=== PATIENT | female | born 1960 | race Caucasian/White ===

== ENCOUNTER 2022-02-02 10:23 | Inpatient (IN) ==
--- NOTE | 2022-02-02 12:02 | XRay Report ---
XR chest 2V PA/lateral CLINICAL HISTORY: dry cough/swelling TECHNIQUE: 2 views of the chest were obtained. Comparison: None available at the time of this dictation. FINDINGS: No lines and tubes are seen. The cardiomediastinal silhouette is normal. There is a large suprahilar mass on the right. No evidence of pleural effusion or pneumothorax. IMPRESSION: Suprahilar mass on the right with or without associated postobstructive atelectasis. In the setting o f a patient with facial swelling for one month, this likely represents a mass resulting in SVC syndro me. If not previously evaluated, a CT is recommended for further evaluation. ACT 112: Negative or not required by law. Electronically signed by: Glenroy Monte M.D. 02/02/2022 12:00 PM
[2022-02-02 12:27] LABS: Basophils # (auto) 0.05 K/uL (0-0.2); Basophils % (auto) 0.6 %; Eosinophils # (auto) 0.06 K/uL (0-0.50); Eosinophils % (auto) 0.7 %; Hematocrit (blood only) 45.3 % (34.1-44.9); Hemoglobin 15.2 g/dl (12.0-16.0); Immature Granulocytes # (auto) 0.02 K/uL (0.00-0.02); Immature Granulocytes % (auto) 0.2 %; Lymphocytes % (auto) 19.8 %; Mean Corpuscular Hemoglobin 30.5 pg (25.0-34.0); Mean Corpuscular Hgb Conc 33.6 g/dL (32.0-36.0); Mean Corpuscular Volume 90.8 fL (80.0-100.0); Mean Platelet Volume 8.7 fL (9.4-12.3); Monocytes # (auto) 0.44 K/uL (0.24-0.82); Monocytes % (auto) 5.1 %; Neutrophils # (auto) 6.32 K/uL (1.4-6.5); Neutrophils % (auto) 73.6 %; Platelet Count 303 K/uL (130-400); RDW Standard Deviation 47.3 fL (36.4-46.3); Red Blood Count 4.99 M/uL (3.93-5.22); White Blood Count 8.59 K/ul (4.8-10.8)
[2022-02-02 12:49] LABS: Albumin Globulin Ratio 1.4 (0.9-2); Albumin Level 4.3 gm/dl (3.4-5.0); BUN Creatinine Ratio 15.5 (10-20); Bilirubin,Total 0.5 mg/dl (0.2-1.0); Calcium 9.5 mg/dl (8.5-10.1); Creatinine Clr Calc Pharmacy 83.7 ml/min; Est GFR (African American) 107.3 ml/min; Est GFR (Non-African American) 92.6 ml/min; Potassium 4.4 mmol/L (3.5-5.1); Total Protein 7.3 gm/dl (6.0-8.3)
[2022-02-02] MEDS ORDERED: OPTIRAY 350 100ml IV ONE (14:54)
--- NOTE | 2022-02-02 15:19 | CT Scan Report ---
CT chest diagnostic w con CLINICAL HISTORY: R lung mass, SVC sx TECHNIQUE: Multidetector row helical CT of the chest was performed with intravenous contrast. Coronal and sagittal reformations were obtained. Automated dose lowering techniques and/or adjustment accord ing to patient size were utilized for this exam. CT DOSE: 625.07 mGy.cm Comparison: Comparison is made to chest radiograph 02/02/2022 FINDINGS: Lungs and pleura: Emphysema is seen. There is a 9 cm lobulated, heterogeneous appearing right hilar m ass encasing the superior vena cava. There is postobstructive atelectasis in the upper lobe. There is a 3 mm nodule in the right lower lobe (series 4 image 207). Heart and pericardium: Heart size is normal. No pericardial effusion. Vessels: There is severe narrowing of the right upper lobe pulmonary artery as well as the superior v tiffanie cava. Collateral formation is seen. No evidence of pulmonary embolus within the limits of a nonde dicated exam. Mediastinum and tasha: No discrete mediastinal lymph nodes are seen. Chest wall and lower neck: Subcentimeter axillary lymph nodes noted. Multiple enlarged right subclavi an lymph nodes measure up to 13 mm in diameter. Abdomen: There is thickening of the left adrenal gland. A splenule is incidentally seen. Bones: Degenerative changes in the thoracic spine. IMPRESSION: Large lobulated right hilar mass with heterogeneity suggestive of necrosis. There is severe narrowing of the superior vena cava compatible symptoms of SVC syndrome. The right upper lobe pulmonary artery is also effaced. A few prominent lymph nodes are seen most prominently in the right subclavian stati on. ACT 112: Negative or not required by law. Electronically signed by: Glenroy Monte M.D. 02/02/2022 3:17 PM
[2022-02-02] MEDS ORDERED: SODIUM CHLORIDE 0.9% 500 ML IV ONE (15:31)
[2022-02-02] MEDS ORDERED: SODIUM CHLORIDE 0.9% 1000ML 1,000 ML IV SCH (15:45)
--- NOTE | 2022-02-02 16:32 | Emergency Department Note ---
Impression & Plan SVC syndrome, Hilar mass, Sinus tachycardia ED Provider Note CHIEF COMPLAINT: Increased heart rate, facial swelling, breast swelling HISTORY OF PRESENT ILLNESS: This 61-year-old female patient presents to the emergency department with complaints of increased heart rate today, face and breast swelling over the course of the last month. 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 She and her coworkers became concerned when it was in the 120s. She states she does smoke cigarettes daily. She has for many years. She has had a dry cough but did not think much of it. Seen at the urgent care clinic this week and placed on doxycycline for sinusitis due to the facial swelling. She states nothing has changed significantly. She denies any chest pain or difficulty with exertion. REVIEW OF SYSTEMS: A review of systems was performed with positives and pertinent negatives listed in the history of present illness. 10 systems were reviewed and are otherwise negative. ALLERGIES: see below MEDICATIONS: see below PMH: see below SOCIAL HISTORY: see below DDx: Premature contractions, electrolyte abnormality, cardiac dysrhythmia, thyroid dysfunction, pulmonary embolism, thoracic mass, infection, gastroin testinal, as well as other pathologies. PHYSICAL EXAM: Vital signs reviewed. General: Generally well-appearing 61-year-old female, in no significant distress. Ambulatory in the waiting room. HEENT: No scleral icterus, PERRLA, neck supple. Mild swelling to the face with erythema noted. Cardiovascular: Tachycardic but regular, no extra sounds. Chest: Large, pendulous breasts. No obvious abnormality. Pulmonary: Clear to auscultation bilaterally, normal work of breathing. Abdomen: Soft, nontender, nondistended, positive bowel sounds. Musculoskeletal: Atraumatic, no peripheral edema. Neurologic: Patient awake alert and oriented x 3, speech is clear Skin: Warm, dry, no rash EMERGENCY DEPARTMENT COURSE/MDM: This patient was evaluated and appeared to be in no significant distress. Patient was in the waiting room at the time my evaluation secondary to excessive volumes. Nursing protocol orders had been performed and a chest mass was identified on chest x-ray. Follow-up chest CT was ordered and reveals a right hilar mass abutting the superior vena cava. Please see findings below. Patient was informed of the findings. She does have a history of tobacco use over many years. I did discuss the case with pulmonary medicine, Dr. Shaw. He stated he would evaluate the patient and arrange for biopsy of possible. 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 IV NSS was administered. Patient was made aware of this plan and agreed. Case was discussed with the hospitalist service who will evaluate the patient for admission and further management. MONITORING: An order for cardiac monitoring was placed and the patient is noted to be in a sinus tachycardia at 120 beats per minute. RADIOLOGY: See below EKG: Sinus tachycardia 111 bpm. Left atrial enlargement. Low voltage QRS. Possible previous septal infarct. Nonspecific ST and T wave abnormality. 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 Required: No Beliefs That Will Affect Care: Spiritual Current Living Situation: Spouse Current Living Situation Comment: lives in house with steps Feels Safe at Home: Yes Safety Concerns: Feels Safe At This Time Assistive Devices: None Allergies Allergies Allergy/AdvReac Type Severity Reaction Status Date / Time naproxen Allergy Intermediate ITCHY HIVES Verified 02/02/22 15:53 Home Meds Home Medications Medication Instructions Recorded Confirmed acetaminophen 500 mg tablet 1,000 mg PO QAM 02/02/22 02/02/22 (Tylenol Extra Strength) doxycycline hyclate 100 mg capsule 100 mg PO BID 02/02/22 02/02/22 Results & Data (ED) Vital Signs Vital Signs - 24 hr 02/02/22 17:24 Pulse Rate [Apical] 95 H Pulse Rhythm [Apical] Regular Respiratory Rate 18 Respiratory Effort / Characteristics Non-Labored Respiratory Depth Normal Respiratory Pattern Regular Blood Pressure [Left Arm] 131/105 H Blood Pressure Mean [Left Arm] 113 Blood Pressure Position [Left Arm] Lying Pulse Oximetry 95 Oxygen Delivery Method Room Air Home Medications Current Medication List: was personally reviewed by me Laboratory Data Attestation: I reviewed the patient's lab results. Result diagrams: 02/03/22 05:39 02/03/22 05:39 Lab Results 02/02/22 02/02/22 02/02/22 Range/Units 12:10 12:10 12:10 WBC 8.59 (4.8-10.8) K/ul RBC 4.99 (3.93-5.22) M/uL Hgb 15.2 (12.0-16.0) g/dl Hct 45.3 H (34.1-44.9) % MCV 90.8 (80.0-100.0) fL MCH 30.5 (25.0-34.0) pg MCHC 33.6 (32.0-36.0) g/dL RDW Std Deviation 47.3 H (36.4-46.3) fL RDW Coeff of Sohail 14.0 (11.5-14.5) % Plt Count 303 (130-400) K/uL MPV 8.7 L (9.4-12.3) fL Immature Gran % (Auto) 0.2 % Neut % (Auto) 73.6 % Lymph % (Auto) 19.8 % Rich % (Auto) 5.1 % Eos % (Auto) 0.7 % Baso % (Auto) 0.6 % Neut # (Auto) 6.32 (1.4-6.5) K/uL Lymph # (Auto) 1.70 (1.2-3.4) K/uL Rich # (Auto) 0.44 (0.24-0.82) K/uL Eos # (Auto) 0.06 (0-0.50) K/uL Baso # (Auto) 0.05 (0-0.2) K/uL Immature Gran # (Auto) 0.02 (0.00-0.02) K/uL PT Cancelled INR Cancelled APTT Cancelled PTT Ratio Cancelled Sodium 138 (136-145) mmol/L Potassium 4.4 (3.5-5.1) mmol/L Chloride 105 (98-107) mmol/L Carbon Dioxide 25 (21-32) mmol/L Anion Gap 8 (3-11) BUN 11 (6-23) mg/dl Creatinine 0.71 (0.6-1.2) mg/dl Est Cr Clr Drug Dosing 83.7 ml/min Est GFR ( Amer) 107.3 ml/min Est GFR (Non-Af Amer) 92.6 ml/min BUN/Creatinine Ratio 15.5 (10-20) Glucose 80 (70-99(Fasting)) mg/dl Calcium 9.5 (8.5-10.1) mg/dl Total Bilirubin 0.5 (0.2-1.0) mg/dl AST 18 (13-39) U/L ALT 7 (7-52) U/L Alkaline Phosphatase 79 (34-104) U/L B-Natriuretic Peptide (0-100) pg/ml Total Protein 7.3 (6.0-8.3) gm/dl Albumin 4.3 (3.4-5.0) gm/dl Globulin 3.0 (2.5-4.0) gm/dl Albumin/Globulin Ratio 1.4 (0.9-2) 02/02/ Range/Units 12:10 WBC (4.8-10.8) K/ul RBC (3.93-5.22) M/uL Hgb (12.0-16.0) g/dl Hct (34.1-44.9) % MCV (80.0-100.0) fL MCH (25.0-34.0) pg MCHC (32.0-36.0) g/dL RDW Std Deviation (36.4-46.3) fL RDW Coeff of Sohail (11.5-14.5) % Plt Count (130-400) K/uL MPV (9.4-12.3) fL Immature Gran % (Auto) % Neut % (Auto) % Lymph % (Auto) % Rich % (Auto) % Eos % (Auto) % Baso % (Auto) % Neut # (Auto) (1.4-6.5) K/uL Lymph # (Auto) (1.2-3.4) K/uL Rich # (Auto) (0.24-0.82) K/uL Eos # (Auto) (0-0.50) K/uL Baso # (Auto) (0-0.2) K/uL Immature Gran # (Auto) (0.00-0.02) K/uL PT INR APTT PTT Ratio Sodium (136-145) mmol/L Potassium (3.5-5.1) mmol/L Chloride (98-107) mmol/L Carbon Dioxide (21-32) mmol/L Anion Gap (3-11) BUN (6-23) mg/dl Creatinine (0.6-1.2) mg/dl Est Cr Clr Drug Dosing ml/min Est GFR ( Amer) ml/min Est GFR (Non-Af Amer) ml/min BUN/Creatinine Ratio (10-20) Glucose (70-99(Fasting)) mg/dl Calcium (8.5-10.1) mg/dl Total Bilirubin (0.2-1.0) mg/dl AST (13-39) U/L ALT (7-52) U/L Alkaline Phosphatase (34-104) U/L B-Natriuretic Peptide 24 (0-100) pg/ml Total Protein (6.0-8.3) gm/dl Albumin (3.4-5.0) gm/dl Globulin (2.5-4.0) gm/dl Albumin/Globulin Ratio (0.9-2) Administered Medications Dexamethasone 4 mg/ Syringe 1 mls @ 1 mls/min IV Q6H [facility] Stop: 03/04/22 20:59 Last Admin: 02/03/22 09:19 Dose: 1 mls/min Documented By: Admin: 02/03/22 03:23 Dose: 1 mls/min Documented By: Admin: 02/02/22 21:44 Dose: 1 mls/min Documented By: MARIAJOSE Miscellaneous (Remove Nicoderm Patch) 1 each N/A DAILY@0859 [facility] Stop: 03/05/22 08:58 Last Admin: 02/03/22 09:34 Dose: Not Given Documented By: YARITZA Nicotine (Nicotine 21 Mg/24 Hr Tdsy) 21 mg TD QAM [facility] Stop: 03/04/22 20:56 Last Admin: 02/03/22 09:33 Dose: Not Given Documented By: Admin: 02/03/22 03:23 Dose: Not Given Documented By: MARIAJOSE Discontinued Medications Dexamethasone (Dexamethasone Sod Inj 4 Mg/Ml Vial) Confirm Administered Dose 4 mg .ROUTE .STK-MED ONE Stop: 02/03/22 09:03 Last Admin: 02/03/22 10:46 Dose: Not Given Documented By: FRANCISCA Gadobutrol (Gadobutrol 7.5ml Vial) 7.5 ml IV ONCE ONE Stop: 02/03/22 00:37 Last Admin: 02/03/22 00:37 Dose: 7.5 ml Documented By: TODD Sodium Chloride (Nss) 500 mls @ 999 mls/hr IV .Q31M ONE Stop: 02/02/22 16:01 Last Infusion: 02/02/22 19:56 Dose: 0 mls/hr Documented By: Admin: 02/02/22 18:04 Dose: 999 mls/hr Documented By: Sodium Chloride (Nss 1000ml) 1,000 mls @ 125 mls/hr IV .Q8H [facility] Stop: 03/04/22 15:44 Last Admin: 02/02/22 18:01 Dose: Not Given Documented By: Ioversol (Optiray 350 100ml) 87 ml IV ONCE ONE Stop: 02/02/22 14:55 Last Admin: 02/02/22 14:59 Dose: 87 ml Documented By: PRUDENCIO Ioversol (Optiray 350 100ml) 83 ml IV ONCE ONE Stop: 02/03/22 07:59 Last Admin: 02/03/22 07:59 Dose: 83 ml Documented By: PRUDENCIO Imaging Data Radiologist's Impression: Chest X-Ray 02/02/22 10:48 XR chest 2V PA/lateral CLINICAL HISTORY: dry cough/swelling TECHNIQUE: 2 views of the chest were obtained. Comparison: None available at the time of this dictation. FINDINGS: No lines and tubes are seen. The cardiomediastinal silhouette is normal. There is a large suprahilar mass on the right. No evidence of pleural effusion or pneumothorax. IMPRESSION: Suprahilar mass on the right with or without associated postobstructive atelectasis. In the setting of a patient with facial swelling for one month, this likely represents a mass resulting in SVC syndrome. If not previously evaluated, a CT is recommended for further evaluation. ACT 112: Negative or not required by law. Electronically signed by: Glenroy Monte M.D. 02/02/2022 12:[address] 02/02/22 14:42 CT chest diagnostic w con CLINICAL HISTORY: R lung mass, SVC sx TECHNIQUE: Multidetector row helical CT of the chest was performed with intravenous contrast. Coronal and sagittal reformations were obtained. Automated dose lowering techniques and/or adjustment according to patient size were utilized for this exam. CT DOSE: 625.07 mGy.cm Comparison: Comparison is made to chest radiograph 02/02/2022 FINDINGS: Lungs and pleura: Emphysema is seen. There is a 9 cm lobulated, heterogeneous appearing right hilar mass encasing the superior vena cava. There is postobstructive atelectasis in the upper lobe. There is a 3 mm nodule in the right lower lobe (series 4 image 207). Heart and pericardium: Heart size is normal. No pericardial effusion. Vessels: There is severe narrowing of the right upper lobe pulmonary artery as well as the superior vena cava. Collateral formation is seen. No evidence of pulmonary embolus within the limits of a nondedicated exam. Mediastinum and tasha: No discrete mediastinal lymph nodes are seen. Chest wall and lower neck: Subcentimeter axillary lymph nodes noted. Multiple enlarged right subclavian lymph nodes measure up to 13 mm in diameter. Abdomen: There is thickening of the left adrenal gland. A splenule is in cidentally seen. Bones: Degenerative changes in the thoracic spine. IMPRESSION: Large lobulated right hilar mass with heterogeneity suggestive of necrosis. There is severe narrowing of the superior vena cava compatible symptoms of SVC s yndrome. The right upper lobe pulmonary artery is also effaced. A few prominent lymph nodes are seen most prominently in the right subclavian station. ACT 112: Negative or not required by law. Electronically signed by: Glenroy Monte M.D. 02/02/2022 3:17 PM Blood Pressure Blood Pressure Findings: Elevated blood pressure Blood Pressure Disposition: elevated BP felt to be situational Discharge Plan Visit Data Chief Complaint: Illness Stated Complaint: FACIAL SWELLING, HIGH HEART RATE ED Provider: Suzanne Costello Discharge Problem: SVC syndrome, Hilar mass, Sinus tachycardia Discharge Instructions Interventions: ED Discharge Assessment Last Done: 02/02/22 20:56
--- NOTE | 2022-02-02 18:13 | History & Physical Report ---
Date of Service February 02, 2022 Assessment & Plan (1) Exertional dyspnea: (2) Facial edema: (3) Hilar mass: (4) SVC syndrome: Plan: Patient is 61-year-old female with PMH tobacco use, dyslipidemia presented to ER with complaint of facial swelling, exertional SOB and non-productive cough x 1 month. No noted night sweats, weight loss In ER afebrile, initially tachycardic 120s, R: 18, BP 146/97, 96% on room air. No leukocytosis CXR: Suprahilar mass on the right with or without associated postobstructive atelectasis. In the setting of a patient with facial swelling for one month, this likely represents a mass resulting in SVC syndrome. If not previously evaluated, a CT is recommended for further evaluation. CT CHEST with IV contrast: Large lobulated right hilar mass with heterogeneity suggestive of necrosis. There is severe narrowing of the superior vena cava compatible symptoms of SVC syndrome. The right upper lobe pulmonary artery is also effaced. A few prominent lymph nodes are seen most prominently in the right subclavian station. Spoke with on-call energy control officer, Dr. Shaw. Recommend CT scan abdomen and pelvis to rule out mass/metastasis. Plans on possible bronchoscopy for biopsy CT abdomen pelvis ordered for tomorrow a.m. as patient received IV contrast today Spoke with on-call radiation oncology, Dr Vaz. Recommend starting Decadron 4mg QID Consult medical oncology Will get BMP Q6H per energy control officer with starting Decadron to monitor for TLS CBC, BMP in am (5) Abnormal resting ECG findings: Plan: EKG: Sinus tachycardia, rate 111. T wave inversion in septal and anterior leads. No prior EKG noted in [facility]. Outpatient EKG report from 06/27/2014 in [facility] system: normal sinus rhythm, normal EKG Repeat vitals in ER with HR in 90's Will add troponin and trend troponin Echo (6) Tobacco use: Plan: Nicotine patch Smoking cessation encouraged DVT Prophylaxis SCDs in case of procedure Full Code as per discussion with pt Does not follows with PCP for routine care Pt was seen and care coordinated with Dr Tomas. See addendum History of Present Illness Chief Complaint: Facial swelling Primary Care Provider: NO PCP Patient is 61-year-old female with PMH tobacco use, dyslipidemia presented to ER with complaint of facial swelling x 1 month. Patient reports for the past month has noticed facial swelling. Also c/o exertional SOB and non-productive cough. Has been having orthopnea for months, sleeps in recliner chair. Reports has been having right chest/axillary pressure for greater than 1 month. Feels some anterior chest pressure. Feels breasts are also more swollen today. She noticed neck seemed swollen also. Has not noticed swollen or tender lymph nodes to axilla. Today she took her pulse and reports had rate of 120 so she decided she should come to ER for evaluation. Denies sensation of skipped beats. 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 Patient reports was seen at urgent care 01/27/2022 for facial swelling and was placed on doxycycline for possible sinus infection without relief of facial swelling. Has been having some nausea but has been eating and drinking normally and without vomiting. Is unsure if nausea began after taking doxycycline. Has not seen PCP for years. Denies any noted weight loss, night sweats, hemoptysis dysphagia, dysphagia, fever/chills, V/D/C, MEDINA, dizziness, syncope, vision changes, sore throat, otalgia, rhinorrhea, abdominal pain, paresthesias, weakness, extremity weakness, extremity edema, rashes, urinary symptoms. Allergies Allergy/AdvReac Type Severity Reaction Status Date / Time naproxen Allergy Intermediate ITCHY HIVES Verified 02/02/22 15:53 Home Medications Medication Instructions Recorded Confirmed Type acetaminophen 500 mg tablet 1,000 mg PO QAM 02/02/22 02/02/22 History (Tylenol Extra Strength) doxycycline hyclate 100 mg capsule 100 mg PO BID 02/02/22 02/02/22 History Past Med/Surg History Medical History Dyslipidemia Tobacco use Surgical History (Updated 02/02/22 @ 16:41 by Ashley Toledo PA-C) H/O tubal ligation History of breast lump/mass excision History of colonoscopy Family History (Updated 02/02/22 @ 18:07 by Ashley Toledo PA-C) Father Lung cancer Social History (Updated 02/02/22 @ 18:07 by Ashley Toledo PA-C) Smoking Status: Current every day smoker Tobacco Type: Cigarettes Cigarettes Per Day: 1 pack/day x 45 years; Hx Alcohol Use: Yes (1 beer daily) Hx Substance Use: Yes Non-Prescribed Medications: Marijuana Last Used Substance Other:: Smokes marijuana daily Preferred Language: Ukrainian Feels Safe at Home: Yes Review of Systems Review of Systems: All systems reviewed & are unremarkable except as noted in HPI & below Physical Exam Physical Exam: General: no acute distress, WDWN Head: normocephalic, atraumatic Eyes: PERRL, EOM's intact, conjunctiva non-injected, anicteric ENT: normal inspection external ears, nose, mucous membranes moist Face: +diffuse edema Neck: supple, trachea midline, +distended neck and chest veins Lungs: clear, no respiratory distress, no wheezing/rhonchi/rales CV: RRR, rate 92, no murmur, no pretibial edema Abd: normal BS, soft, non-tender Ext: no cyanosis, no erythema, no calf tenderness Neuro: A&O x 3, no focal deficits noted, normal affect Skin: warm, dry Results & Data Results & Data ([facility]) Vital Signs (Past 12 Hours) Vital Signs Temp Pulse Resp BP Pulse Ox O2 Del Method 02/02/22 10:41 36.6 C 121 H 18 146/97 H 96 Room Air Laboratory Results Short CBC 02/02/22 Range/Units 12:10 WBC 8.59 (4.8-10.8) K/ul Hgb 15.2 (12.0-16.0) g/dl Hct 45.3 H (34.1-44.9) % Plt Count 303 (130-400) K/uL BMP 02/02/22 12:10 Sodium 138 Potassium 4.4 Chloride 105 Carbon Dioxide 25 BUN 11 Creatinine 0.71 Glucose 80 Calcium 9.5 Liver Function 02/02/22 Range/Units 12:10 Total Bilirubin 0.5 (0.2-1.0) mg/dl AST 18 (13-39) U/L ALT 7 (7-52) U/L Alkaline Phosphatase 79 (34-104) U/L Albumin 4.3 (3.4-5.0) gm/dl Diagnostic Findings Chest X-Ray 02/02/22 10:48 XR chest 2V PA/lateral CLINICAL HISTORY: dry cough/swelling TECHNIQUE: 2 views of the chest were obtained. Comparison: None available at the time of this dictation. FINDINGS: No lines and tubes are seen. The cardiomediastinal silhouette is normal. There is a large suprahilar mass on the right. No evidence of pleural effusion or pneumothorax. IMPRESSION: Suprahilar mass on the right with or without associated postobstructive atelectasis. In the setting of a patient with facial swelling for one month, this likely represents a mass resulting in SVC syndrome. If not previously evaluated, a CT is recommended for further evaluation. ACT 112: Negative or not required by law. Electronically signed by: Glenroy Monte M.D. 02/02/2022 12:[address] 02/02/22 14:42 CT chest diagnostic w con CLINICAL HISTORY: R lung mass, SVC sx TECHNIQUE: Multidetector row helical CT of the chest was performed with intravenous contrast. Coronal and sagittal reformations were obtained. Automated dose lowering techniques and/or adjustment according to patient size were utilized for this exam. CT DOSE: 625.07 mGy.cm Comparison: Comparison is made to chest radiograph 02/02/2022 FINDINGS: Lungs and pleura: Emphysema is seen. There is a 9 cm lobulated, heterogeneous appearing right hilar mass encasing the superior vena cava. There is postobstructive atelectasis in the upper lobe. There is a 3 mm nodule in the right lower lobe (series 4 image 207). Heart and pericardium: Heart size is normal. No pericardial effusion. Vessels: There is severe narrowing of the right upper lobe pulmonary artery as well as the superior vena cava. Collateral formation is seen. No evidence of pulmonary embolus within the limits of a nondedicated exam. Mediastinum and tasha: No discrete mediastinal lymph nodes are seen. Chest wall and lower neck: Subcentimeter axillary lymph nodes noted. Multiple enlarged right subclavian lymph nodes measure up to 13 mm in diameter. Abdomen: There is thickening of the left adrenal gland. A splenule is incidentally seen. Bones: Degenerative changes in the thoracic spine. IMPRESSION: Large lobulated right hilar mass with heterogeneity suggestive of necrosis. There is severe narrowing of the superior vena cava compatible symptoms of SVC syndrome. The right upper lobe pulmonary artery is also effaced. A few prominent lymph nodes are seen most prominently in the right subclavian station. ACT 112: Negative or not required by law. Electronically signed by: Glenroy Monte M.D. 02/02/2022 3:17 PM ECG Rate (beats per minute): 111 Rhythm: sinus tachycardia Findings: + T-wave inversion (Septal, anterior) Supervising Physician Co-Signing Physician Notes Patient is a 61-year-old female with tobacco use disorder, dyslipidemia and no other significant past medical history presents with history of facial/neck/upper chest swelling which has been gradually worsening for the past 1 month duration. She also reports exertional shortness of breath and no nproductive cough. She attributes her cough secondary to having having COVID few months ago. She admits to smoking 1 pack/day. Denies any dysphagia, odynophagia, shortness of breath at rest, weight loss, loss of appetite, dizziness, syncopal episode. Reports family history of her father having lung cancer. Currently denies any chest pain. Please review HPI for complete details of presentation. I personally reviewed blood work, imaging studies and EKG. On exam patient is moderately built and nourished, no apparent distress, normocephalic atraumatic, EOMI, normal breath sounds, clear to auscultation,+ facial/neck and upper chest swelling, S1-S2, no murmur, trace pedal edema noted, abdomen soft, nontender, normal bowel sounds, alert, awake, oriented, grossly no focal deficits. Patient is admitted for management of SVC syndrome secondary to hilar mass. Cannot rule out malignancy. Appreciate pulmonology and radiation oncology input. Start on IV Decadron. Monitor BMP for any tumor lysis. Heme oncology consulted as well. Monitor for any airway compromise. Abnormal EKG. Agree with trending troponins and checking resting echo and will repeat EKG tomorrow. Blood pressure slightly elevated likely situational. 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 N.p.o. after midnight for possible bronchoscopy. I personally reviewed the record. Patient is interviewed and examined at bedside. Patient's care is coordinated with Ashley Toledo PA-C. Please refer to the documentation above for details of patient's presentation and for discussion of other issues.
--- NOTE | 2022-02-02 18:24 | Electrocardiogram Report ---
Test Reason : Blood Pressure : / mmHG Vent. Rate : 111 BPM Atrial Rate : 111 BPM P-R Int : 160 ms QRS Dur : 062 ms QT Int : 304 ms P-R-T Axes : 068 073 076 degrees QTc Int : 413 ms Sinus tachycardia Possible Left atrial enlargement Low voltage QRS Abnormal ECG No previous ECGs available Confirmed by Darian Martin ([id number]) on 02/02/2022 6:23:31 PM Referred By: Confirmed By:Prashant Martin
--- NOTE | 2022-02-02 18:41 | Pulmonary Consultation ---
Date of Consultation February 02, 2022 Assessment & Plan (1) Lung mass: Plan Likely primary lung ca. perhaps small celll. NPO after midnight. will try ebus tomorrow if scheduling allows. if not, ebus can be done outpatient probably next week. needs ct abdomen with contrast and mri brain for staging. History of Present Illness Reason for Consultation: lung mass History of Present Illness presented with palpitations and tachycardia. 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 checked pulse which was in 90s but hr elevated. heavy smoker since teenage years. dad with hx of lung ca. patient noted swelling of her face for a month and given doxy with no inprovement. ct chest today with signs of svc syndrome and 9 cm centrally located lung mass with airway compression. Allergies Allergy/AdvReac Type Severity Reaction Status Date / Time naproxen Allergy Intermediate ITCHY HIVES Verified 02/02/22 15:53 Home Medications Medication Instructions Recorded Confirmed Type acetaminophen 500 mg tablet 1,000 mg PO QAM 02/02/22 02/02/22 History (Tylenol Extra Strength) doxycycline hyclate 100 mg capsule 100 mg PO BID 02/02/22 02/02/22 History Patient History Medical History Dyslipidemia Tobacco use Surgical History (Updated 02/02/22 @ 16:41 by Ashley Toledo PA-C) H/O tubal ligation History of breast lump/mass excision History of colonoscopy Family History (Updated 02/02/22 @ 18:07 by Ashley Toledo PA-C) Father Lung cancer Social History (Updated 02/02/22 @ 18:07 by Ashley Toledo PA-C) Smoking Status: Current every day smoker Tobacco Type: Cigarettes Cigarettes Per Day: 1 pack/day x 45 years; Hx Alcohol Use: Yes (1 beer daily) Hx Substance Use: Yes Non-Prescribed Medications: Marijuana Last Used Substance Other:: Smokes marijuana daily Preferred Language: Iranian Feels Safe at Home: Yes Review of Systems Review of Systems: All systems reviewed & are unremarkable except as noted in HPI & below Physical Exam Constitutional: WD/WN, vitals as above Eyes: PERRL, conjunctivae normal, anicteric sclerae Neck: dilated IJ and EJ. plethoric face Respiratory: normal respiratory effort and + cough; no paradoxical thoraco- abdominal movemnt Gastrointestinal (Abdomen): normal bowel sounds, soft, nontender, no hepatosplenomegaly Psychiatric: A+Ox3, euthymic affect Results & Data Results & Data ([facility]) Vital Signs (Past 12 Hours) Vital Signs Temp Pulse Pulse Resp BP BP Pulse Ox 02/02/22 17:24 95 H 18 131/105 H 95 02/02/22 10:41 36.6 C 121 H 18 146/97 H 96 O2 Del Method 02/02/22 17:24 Room Air 02/02/22 10:41 Room Air PG Care Time/CCT Total # of Minutes Spent Total Time Spent with Patient: Total time spent is greater than 50% in coordination of care (as documented) at patient's floor/unit and/or counseling patient: Coding Level of Care Code 63665 Inpt Consult Level 4 Diagnoses Lung mass R91.8
[2022-02-02 19:11] LABS: INR 1.1 (0.9-1.1); Partial Thromboplastin Ratio 0.9; Partial Thromboplastin Time 25.1 Seconds (21.0-31.0); Prothrombin Time 11.5 Seconds (9.0-12.0)
[2022-02-02] MEDS ORDERED: POLYETHYLENE (MIRALAX) 17 GM PACK PO PRN (20:57)
[2022-02-02] MEDS ORDERED: ONDANSETRON INJ 2 MG/ML 2 ML VIAL IV PRN (20:57)
[2022-02-02] MEDS ORDERED: ALBUTEROL 0.083% NEBU SOLN 3 ML VIAL NEB PRN (20:57)
[2022-02-02] MEDS: dexAMETHasone 4 MG in SYRINGE 0 ML IV SCH (21:44)
[2022-02-03] MEDS ORDERED: GADOBUTROL 7.5ML VIAL IV ONE (00:36)
[2022-02-03] MEDS ORDERED: FLUARIX QUADRIVALENT 0.5 ML SYR IM ONE (00:56)
[2022-02-03 00:57] LABS: BUN Creatinine Ratio 16.4 (10-20); Calcium 8.9 mg/dl (8.5-10.1); Creatinine Clr Calc Pharmacy 81.4 ml/min; Est GFR (African American) 103.8 ml/min; Est GFR (Non-African American) 89.5 ml/min; Potassium 4.2 mmol/L (3.5-5.1)
[2022-02-03 00:59] LABS: Troponin I High Sensitivity 6.2 pg/ml (0-14)
[2022-02-03] MEDS: NICOTINE 21 MG/24 HR TDSY TD SCH ×2 (03:23→09:33)
[2022-02-03] MEDS: dexAMETHasone 4 MG in SYRINGE 0 ML IV SCH ×4 (03:23→20:11)
[2022-02-03 06:11] LABS: Hematocrit (blood only) 42.2 % (34.1-44.9); Hemoglobin 14.1 g/dl (12.0-16.0); Mean Corpuscular Hemoglobin 30.6 pg (25.0-34.0); Mean Corpuscular Hgb Conc 33.4 g/dL (32.0-36.0); Mean Corpuscular Volume 91.5 fL (80.0-100.0); Mean Platelet Volume 8.9 fL (9.4-12.3); Platelet Count 281 K/uL (130-400); RDW Coefficient of Variation 13.9 % (11.5-14.5); RDW Standard Deviation 47.1 fL (36.4-46.3); Red Blood Count 4.61 M/uL (3.93-5.22); White Blood Count 4.85 K/ul (4.8-10.8)
[2022-02-03 06:43] LABS: Troponin I High Sensitivity 3.9 pg/ml (0-14)
[2022-02-03 06:45] LABS: BUN Creatinine Ratio 16.7 (10-20); Calcium 9.1 mg/dl (8.5-10.1); Creatinine Clr Calc Pharmacy 89.1 ml/min; Est GFR (African American) 111.3 ml/min; Potassium 4.6 mmol/L (3.5-5.1)
--- NOTE | 2022-02-03 07:44 | Oncology Consultation ---
Date of Consultation February 03, 2022 Assessment & Plan (1) Small cell lung cancer: (2) Left renal mass: Plan Pleasant female who presented with superior vena cava syndrome with imaging revealing right hilar mass as well as left renal mass. Bronchoscopy/EBUS with biopsy was performed today and based on my discussion with Dr. Pink of pathology was consistent with small cell lung cancer ([facility] pending). Given significant symptoms from SVC syndrome, will need to start chemotherapy for small cell lung cancer urgently. Had an extensive discussion with patient today. Explained to her that based on preliminary pathology review, she appears to have small cell lung cancer. Im aging studies indicate that she has limited stage disease for which I would recommend treatment with concurrent chemoradiation utilizing carboplatin AUC 5 day 1, etoposide day 1-3 given IV every 3 weeks for total of 4 cycles of treatment. Discussed potential side effects of treatment with patient including but not limited to nausea, vomiting, diarrhea, constipation, increased risk of infection, anemia, thrombocytopenia, renal insufficiency, infusion reaction. Following our discussion, she indicated that she would like to go ahead with treatment and informed consent was obtained. -Chemotherapy orders and consent placed in her chart. IV team informed -Radiation treatments can be started between cycle 1-2 of chemotherapy treatment -Will require daily labs including CBC and CMP. Also need to be monitored for tumor lysis syndrome with labs including uric acid, phosphorus and potassium -Although she also has left renal mass concerning for renal cell carcinoma, given aggressiveness of small cell lung cancer will hold off on workup/treatment for now but will need urology assessment in the future depending on how she responds to treatment Thank you for this consult. Oncology will continue following while in the hospital. Please call if you have any further questions History of Present Illness Reason for Consultation: Lung mass Attending Physician: Vignesh Tomas MD History of Present Illness Ms. Pathak is a pleasant 61-year-old female who presented to the ER [facility] with palpitations, facial, neck and breast swelling. She indicates that she initially presented to urgent care about a week ago and doxycycline was prescribed with no improvement in symptoms. CT chest obtained while in the ER revealed 9 cm right hilar mass encasing the superior vena cava, subcentimeter axillary lymph node with multiple enlarged subclavian lymph nodes measuring up to 1.3 cm and thickening of the left adrenal gland. CT abdomen and pelvis revealed indeterminate lesion in the left kidney inferior pole. Brain MRI obtained earlier today revealed no evidence of brain metastasis. Renal ultrasound also obtained earlier today revealed 1.8 x 1.8 x 1.5 cm hypoechoic lesion within the lower pole of the left kidney likely representing solid renal mass/renal cell carcinoma. She underwent bronchoscopy with EBUS performed by Dr. Shaw earlier today. Based on my discussion with Dr. Pink of pathology appearance is highly suggestive of small cell lung cancer with a immunohistochemistry pending. She endorses more than [id number] history of cigarette smoking. Endorses dyspnea on exertion, right-sided chest discomfort, facial, neck and breast swelling. Allergies Allergy/AdvReac Type Severity Reaction Status Date / Time naproxen Allergy Intermediate ITCHY HIVES Verified 02/02/22 15:53 Home Medications Medication Instructions Recorded Confirmed Type acetaminophen 500 mg tablet 1,000 mg PO QAM 02/02/22 02/02/22 History (Tylenol Extra Strength) doxycycline hyclate 100 mg capsule 100 mg PO BID 02/02/22 02/02/22 History Patient History Medical History Dyslipidemia Tobacco use Surgical History H/O tubal ligation History of breast lump/mass excision History of colonoscopy Family History Father Lung cancer Social History Smoking Status: Current every day smoker Tobacco Type: Cigarettes Cigarettes Per Day: 20; Hx Alcohol Use: Yes Alcohol type: beer Hx Substance Use: No Preferred Language: Malagasy 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 Internship Required: No Beliefs That Will Affect Care: Spiritual Current Living Situation: Spouse Current Living Situation Comment: lives in house with steps Feels Safe at Home: Yes Assistive Devices: None Review of Systems Review of Systems: All systems reviewed & are unremarkable except as noted in HPI & below Physical Exam Constitutional: WD/WN, vitals as above Eyes: PERRL, conjunctivae normal, anicteric sclerae ENMT: external ear and nose normal, oropharynx normal Neck: Distention of neck veins and neck swelling Respiratory: normal respiratory effort, lungs clear to auscultation Cardiovascular: Rate/Rhythm: + tachycardic Gastrointestinal (Abdomen): normal bowel sounds, soft, nontender, no hepatosplenomegaly Results & Data ([facility]) Vital Signs (Past 12 Hours) Vital Signs Temp Pulse Resp BP Pulse Ox O2 Del Method 02/03/22 07:41 84 19 152/92 H 95 Room Air 02/03/22 03:23 36.8 C 88 12 127/78 95 Room Air 02/03/22 00:50 36.8 C 89 19 156/98 H 96 Room Air 02/02/22 20:04 92 H 18 150/87 H 95 Room Air
[2022-02-03] MEDS ORDERED: OPTIRAY 350 100ml IV ONE (07:58)
--- NOTE | 2022-02-03 08:31 | CT Scan Report ---
CT abd pelvis IV con only CLINICAL HISTORY: R/O mass/mets TECHNIQUE: Helical axial images of the abdomen and pelvis were obtained and displayed. Automated dose lowering techniques and/or adjustment according to patient size were utilized for this exam. This e xam was performed with intravenous contrast. CT DOSE: 640.83 mGy.cm COMPARISON: None available at the time of this dictation. FINDINGS: Lower chest: No acute abnormality. Liver: Unremarkable. No focal lesions are seen. Gallbladder and biliary tree: No calcified gallstones. Normal caliber wall. No intra- or extrahepatic biliary ductal dilation. Pancreas: Unremarkable, no focal lesions. Spleen: Unremarkable. Adrenals: Unremarkable. Kidneys and ureters: There is a complex appearing hypoenhancing lesion in the left kidney inferior po le measuring 13 mm in diameter. Bladder: Limited evaluation due to underdistention. Reproductive organs: Unremarkable. Bowel: Unremarkable appearance of the bowel. The appendix is normal. Lymph nodes Retroperitoneal: Unremarkable. Pelvic: Unremarkable. Mesenteric: Unremarkable. Peritoneum: Normal. Vessels: Atherosclerotic calcifications are seen. Abdominal wall: Unremarkable. Bones: Degenerative changes in the visualized spine. IMPRESSION: No acute abnormality and in particular no evidence of metastatic disease below the diaphragm. ACT 112: Negative or not required by law. Electronically signed by: Glenroy Monte M.D. 02/03/2022 8:30 AM
--- NOTE | 2022-02-03 08:44 | Radiation OncologyConsultation ---
Date of Consultation February 03, 2022 Assessment & Plan (1) SVC syndrome: Assessment: Patient is a 61-year-old female with [id number]-year history of smoking. She recently noted some swelling of the face neck and breast and increasing heart rate. He presented to the emergency department last evening and chest x-ray showed a 9 cm right suprahilar mass involving the hilum and mediastinum with compression of the right upper lobe pulmonary artery and superior vena cava. Staging work-up is undergoing but no obvious evidence of metastatic disease at this time. Patient has been seen by medical oncology and pulmonary with plans to obtain tissue diagnosis. Treatment Options: 1. Chemotherapy. 2. Radiation. 3. Chemoradiation. Recommendations: 2 best determine treatment options tissue diagnosis is mandatory. The patient has been seen by Dr. Shaw who is planning to perform a bronchoscopy to obtain tissue diagnosis. Once the patient has had complete staging work-up and tissue diagnosis treatment options will be discussed. Plan: 1. Bronchoscopy with tissue diagnosis is being planned. 2. MRI of the brain and CT of the abdomen have been performed and are being read. 3. Pending tissue diagnosis discussion of appropriate treatment options. 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 Her symptoms however are mild and improved with the initiation of steroid therapy. I do not believe that any emergent treatment is necessary at this time. The patient is to be scheduled for bronchoscopy to obtain tissue for diagnosis. If this is a small cell cancer patient may best be served by initiation of systemic chemotherapy initially followed by chemoradiation. If this is a non-small cell lung cancer the patient may be best served by initiation of chemoradiation. Other tissue diagnosis would be dealt with appropriately. I will discuss this with Dr. Barr and Dr. Shaw with appropriate treatment recommendations and plans once tissue diagnosis has been obtained. History of Present Illness Reason for Consultation: Right lung mass with probable SVC syndrome. Attending Physician: Vignesh Tomas MD History of Present Illness Ms. Pathak is a 61-year-old female with a long smoking history starting at age 16 from 1/2 to 1 pack a day. The patient presented to the emergency department with complaints of based and breast swelling which is increased over the past month. She also noted some heart palpitation. She has had a dry cough and some dyspnea upon exertion. 02/02/2022. Patient undergoes CT scan of the chest with contrast. This showed a 9 cm lobulated heterogeneous appearing right hilar mass encasing the superior vena cava. There is postobstructive atelectasis in the upper lobe and a 3 mm nodule in the right lower lobe. There is evidence of emphysema. There is severe narrowing of the right upper lobe pulmonary artery as well as the superior vena cava with collateral formation seen. There is no discrete mediastinal lymph nodes appreciated. There is a subcentimeter axillary lymph node noted with multiple enlarged right subclavian lymph nodes measuring up to 1.3 cm. There is thickening of the left adrenal gland and degenerative changes of the thoracic spine with no evidence of metastatic bony disease. 02/03/2022. Patient undergoes MRI of the brain. Final report is pending but on review there is no obvious evidence of metastatic disease. Patient also undergoes CT of the abdomen which is also being read but upon review shows no obvious evidence of metastatic disease. 02/03/2022. Patient was seen by Dr. Barr and by Dr. Shaw. Dr. Shaw is planning to proceed with a bronchoscopy for tissue diagnosis. The patient has been started on Decadron and has noted improvement in the swelling of the face and neck and breast as well as in the breathing. The patient was able to lie flat comfortably for the scans without shortness of breath. 02/03/2022. Patient is seen in referral by radiation oncology. Allergies Allergy/AdvReac Type Severity Reaction Status Date / Time naproxen Allergy Intermediate ITCHY HIVES Verified 02/02/22 15:53 Home Medications Medication Instructions Recorded Confirmed Type acetaminophen 500 mg tablet 1,000 mg PO QAM 02/02/22 02/02/22 History (Tylenol Extra Strength) doxycycline hyclate 100 mg capsule 100 mg PO BID 02/02/22 02/02/22 History Patient History Medical History Dyslipidemia Tobacco use Surgical History H/O tubal ligation History of breast lump/mass excision History of colonoscopy Family History Father Lung cancer Social History Smoking Status: Current every day smoker Tobacco Type: Cigarettes Cigarettes Per Day: 20; Hx Alcohol Use: Yes Alcohol type: beer Hx Substance Use: Yes Non-Prescribed Medications: Marijuana Last Used Substance: Just Prior to Arrival Last Used Substance Other:: Smokes marijuana daily Preferred Language: Italian Imaging Assistant Required: No Beliefs That Will Affect Care: None Current Living Situation: Spouse Current Living Situation Comment: lives in house with steps Feels Safe at Home: Yes Safety Concerns: Feels Safe At This Time Assistive Devices: None Physical Exam Constitutional: WD/WN, vitals as above Eyes: PERRL, conjunctivae normal, anicteric sclerae ENMT: external ear and nose normal, oropharynx normal Neck: There is mild swelling of the face and neck with no definite cervical or supraclavicular adenopathy appreciated on examination. Respiratory: normal respiratory effort, lungs clear to auscultation Cardiovascular: RRR, no murmur, no edema Chest (Breasts): normal inspection/palpation of breasts Gastrointestinal (Abdomen): normal bowel sounds, soft, nontender, no hepatosplenomegaly Musculoskeletal: no cyanosis or clubbing, extremities motor strength 5/5 Skin: no rashes, warm and dry Neurologic: PERRL, EOMI, accommodation nl, no face palsy, no dysarthria Cranial nerves are intact. Psychiatric: A+Ox3, euthymic affect Lymphatic: There is no palpable cervical, supraclavicular, axillary or inguinal adenopathy appreciated. Results (Rad Onc) Laboratory Results: were reviewed and no pertinent findings Pathology Results: pending Imaging Studies: were reviewed and pertinent findings noted in HPI Time Spent Attending This documentation has been prepared in full by Dr. Vaz. I have personally reviewed the services described and have reviewed the documentation to ensure its accuracy. I spent 25 minutes with direct face to face interaction with the patient which included obtaining clinical information, recommending a plan of action and answering questions. I spent 30 minutes reviewing the patient's chart, her scans with radiology and discussion with referring physicians. KYLEE
[2022-02-03] MEDS ORDERED: DEXAMETHASONE SOD INJ 4 MG/ML VIAL ONE (09:02)
--- NOTE | 2022-02-03 09:54 | Magnetic Resonance Report ---
MR brain wo/w con CLINICAL HISTORY: R/O mets TECHNIQUE: Multiplanar and multisequence MR images of the brain were obtained prior to and following administration of gadolinium contrast. Comparison: None available at the time of this dictation. FINDINGS: No abnormal restricted diffusion is identified. The white matter is unremarkable. The ventricular sys tem is normal in appearance. No mass or abnormal enhancement is seen. There is no mass effect or midl ine shift. There is no evidence of acute intraparenchymal hemorrhage. No extra axial fluid collection s are seen. The corpus callosum, pituitary gland, and cerebellar tonsils appear grossly unremarkable. Flow voids of the major intracranial arterial vessels are identified. The imaged portions of the para nasal sinuses, mastoid air cells, and orbits are unremarkable. IMPRESSION: No acute abnormalities. ACT 112: Negative or not required by law. Electronically signed by: Glenroy Monte M.D. 02/03/2022 9:52 AM
[2022-02-03] MEDS ORDERED: NALOXONE HCL 0.4 MG/1 ML VIAL/CARP ONE (11:20)
[2022-02-03] MEDS ORDERED: FLUMAZENIL 0.1 MG/1 ML 10 ML VIAL IV ONE (11:20)
[2022-02-03] MEDS ORDERED: fentaNYL citrate 100 MCG/2 ML VIAL ONE ×2 (11:21→11:47)
[2022-02-03] MEDS ORDERED: MIDAZOLAM HCL 1 MG/ML 2ML VIAL ONE ×2 (11:21)
[2022-02-03] MEDS ORDERED: MIDAZOLAM HCL 5 MG/ML 1 ML VIAL ONE (11:25)
--- NOTE | 2022-02-03 12:06 | History & Physical Bridge Note ---
Date of Service February 03, 2022 History & Physical Bridge Note I have examined the patient, reviewed the History & Physical and in the interval since the performance of the History & Physical I have noted the following changes of clinical significance: no changes noted
--- NOTE | 2022-02-03 12:10 | Pre Anesthesia Assessment ---
Date of Service February 03, 2022 Pre Sedation Assessment Vital Signs Temp Pulse Resp BP Pulse Ox O2 Del Method 02/03/22 07:41 84 19 152/92 H 95 Room Air 02/03/22 03:23 36.8 C 88 12 127/78 95 Room Air 02/03/22 00:50 36.8 C 89 19 156/98 H 96 Room Air 02/02/22 20:04 92 H 18 150/87 H 95 Room Air 02/02/22 18:46 86 18 140/87 94 Room Air 02/02/22 17:24 95 H 18 131/105 H 95 Room Air Cardiovascular RRR, no murmur, no edema Respiratory normal respiratory effort, lungs clear to auscultation Pre-Sedation Airway Assessment Smoking Status: Current every day smoker Hx Sleep Apnea: No Short, Thick Neck: No Thyromental Distance: > or= 3.5 Finger Breadths Oral Cavity: + WNL Mallampati Class: I ASA: ASA3 NPO Status Date of Last Intake of Fluids: 02/02/22 Time of Last Intake of Fluids: 21:00 Date of Last Intake of Solid Food: 02/02/22 Time of Last Intake of Solid Foods: 21:00 Notes The planned sedation has been discussed with the patient. Informed Consent was obtained. I have identified the patient, determined the appropriateness of sedation and have assessed the patient immediately prior to the procedure. All medicine(s) and interventions are by my order.
--- NOTE | 2022-02-03 12:59 | Post Anesthesia Assessment ---
Date of Service February 03, 2022 Post Sedation Assessment Vital Signs Temp Pulse Pulse Resp BP Pulse Ox O2 Del Method 02/03/22 12:45 89 18 141/87 H 95 Nasal Cannula 02/03/22 12:37 104 H 18 133/83 96 Nasal Cannula 02/03/22 12:27 96 H 18 175/110 H 98 High Flow Nasal Cannula 02/03/22 12:17 85 18 133/93 97 High Flow Nasal Cannula 02/03/22 12:32 94 H 18 134/93 97 High Flow Nasal Cannula 02/03/22 12:23 105 H 18 185/125 H 98 High Flow Nasal Cannula 02/03/22 12:12 80 18 143/103 H 98 High Flow Nasal Cannula 02/03/22 07:41 84 19 152/92 H 95 Room Air 02/03/22 03:23 36.8 C 88 12 127/78 95 Room Air 02/03/22 00:50 36.8 C 89 19 156/98 H 96 Room Air 02/02/22 20:04 92 H 18 150/87 H 95 Room Air 02/02/22 18:46 86 18 140/87 94 Room Air 02/02/22 17:24 95 H 18 131/105 H 95 Room Air O2 Flow Rate 02/03/22 12:45 4 02/03/22 12:37 4 02/03/22 12:27 02/03/22 12:17 02/03/22 12:32 02/03/22 12:23 02/03/22 12:12 02/03/22 07:41 02/03/22 03:23 02/03/22 00:50 02/02/22 20:04 02/02/22 18:46 02/02/22 17:24 Recovery Score Activity: Moves 4 extremities Respiration: Deep Breath/Cough Circulation: +/-20% PreAnes Value Consciousness: Fully Awake Oxygen Saturation: > 92% On Room Air Post Anesthesia Score: 10 Discharge Sedation Level of Care: Fast Track Phase II Post Sedation Plan On clinical assessment, the patient appears to have tolerated the sedation without complications. Patient is recovering as anticipated. Patient will continue to be monitored by nursing and may be discharged when sedation discharge criteria are met per below protocol. Upon Completions of procedure up to 15 minutes continue every 5 minute vital signs and the P.A.R. score; then discharge to a Phase I or Fast Track to Phase II per the following guidelines: * Discharge Patient to appropriate Phase II area if PAR is 8 or greater or return to pre- procedure baseline. The post - procedure orders will be as directed. * If PAR score is less than 8 or not return to pre-procedure baseline then patient will follow Phase I monitoring till PAR is reached for Phase II. The Phase I may be done in procedure room or may call to secure a Phase I area. * If naloxone or flumazenil are used for reversal, hold in Phase I for continued monitoring from when last reversal dose was given for a minimum of 60 minutes or longer pending the nurse and/or physician discretion of patient condition before discharge to Phase II. Please call the Sedation Physician to re-evaluate and complete post-note for discharge to Phase II area. Do NOT discharge from procedure sedation or Phase 1 until post- sedation evaluation note is complete by procedure /sedation MD Sedation Discharge Instructions to be given to the patient at discharge to home.
--- NOTE | 2022-02-03 13:01 | Pulmonology Progress Note ---
Date of Service February 03, 2022 Assessment & Plan (1) Lung mass: Plan CT abdomen and MRI brain negative. I performed an EBUS today the subcarinal lymph node. Biopsy was positive for small cell lung cancer onsite. Oncology consulted. Patient aware. No further recommendations from pulmonary at this point. We will sign off. Thank you for the consult. Admission and Anticipated Discharge Date Admission Date: February 02, 2022 Subjective Patient with cough and shortness of breath today. Denies chest pain. Otherwise stable Review of Systems Review of Systems: All systems reviewed & are unremarkable except as noted in HPI & below Physical Exam Constitutional: WD/WN, vitals as above Eyes: PERRL, conjunctivae normal, anicteric sclerae Neck: dilated IJ and EJ. plethoric face Respiratory: normal respiratory effort and + cough; no paradoxical thoraco- abdominal movemnt Gastrointestinal (Abdomen): normal bowel sounds, soft, nontender, no hepatosplenomegaly Psychiatric: A+Ox3, euthymic affect Results & Data Results & Data ([facility]) Vital Signs (Past 12 Hours) Vital Signs Temp Pulse Pulse Resp BP Pulse Ox O2 Del Method 02/03/22 12:45 89 18 141/87 H 95 Nasal Cannula 02/03/22 12:37 104 H 18 133/83 96 Nasal Cannula 02/03/22 12:27 96 H 18 175/110 H 98 High Flow Nasal Cannula 02/03/22 12:17 85 18 133/93 97 High Flow Nasal Cannula 02/03/22 12:32 94 H 18 134/93 97 High Flow Nasal Cannula 02/03/22 12:23 105 H 18 185/125 H 98 High Flow Nasal Cannula 02/03/22 12:12 80 18 143/103 H 98 High Flow Nasal Cannula 02/03/22 07:41 84 19 152/92 H 95 Room Air 02/03/22 03:23 36.8 C 88 12 127/78 95 Room Air O2 Flow Rate 02/03/22 12:45 4 02/03/22 12:37 4 02/03/22 12:27 02/03/22 12:17 02/03/22 12:32 02/03/22 12:23 02/03/22 12:12 02/03/22 07:41 02/03/22 03:23 PG Care Time/CCT Total # of Minutes Spent Total Time Spent with Patient: Total time spent is greater than 50% in coordination of care (as documented) at patient's floor/unit and/or counseling patient: Coding Level of Care Code 75679 Subseq Hosp Care Lvl 2 Diagnoses Lung mass R91.8
--- NOTE | 2022-02-03 13:06 | Procedure Note ---
Supervising Physician Co-Signing Physician Notes PREOPERATIVE DIAGNOSIS: Large central lung mass POSTOPERATIVE DIAGNOSIS: Same with PROCEDURE PERFORMED: EBUS FNA COMPLICATIONS: None. INDICATION: Rule out malignant PROCEDURE: After obtaining an informed consent, the patient was brought to the Bronchoscopy Suite. The patient had appropriate oxygen, blood pressure, heart rate, and respiratory rate monitoring applied and monitored continuously throughout the procedure. Supplemental oxygen via nasal cannula as per nursing records was applied to the nasopharynx with adequate saturations achieved. Topical anesthesia with nebulized 1% lidocaine was achieved. Subsequent to this, the patient was premedicated with 4 mg of midazolam and 125 mcg of fentanyl. Sedation start time 1217. Sedation stop time 1237. Procedure start time 1218. Procedure stop time 1237. The oropharynx and larynx were well visualized and appeared normal There was normal vocal cord motion without masses or lesions. Additional topical anesthesia with 1% lidocaine was applied to the trachea and omar. The trachea appeared normal. There was narrowing of the left mainstem bronchus. Bilateral tracheobronchial tree inspection was performed. There was significant narrowing of the superior segment of the left lower lobe, but I was able to pass the scop e. There was significant narrowing of the right upper lobe and I was unable to pass the scope through the right upper lobe. Otherwise the bilateral tracheal tree appeared normal with scant secretions bilaterally. The mucus was cleared with suction. EBUS was performed and immediately upon viewing the subcarinal region, there was a 4 cm mass appreciated. Discriminate lymph nodes were difficult to discern. I performed several passes of the subcarinal region and was able to obtain adequate tissue. Onsite pathology was concerning for small cell lung cancer. Adequate hemostasis was achieved. The scope was completely withdrawn and the patient tolerated the procedure well. Recommendations: Follow final pathology results. Radiation oncology and medical oncology consulted. Patient has right upper lobe external compression with no airflow. There is also external compression of the left mainstem bronchus which appears to be ventilating okay at this time. [facility] [place] Procedure Codes (Charges) Pulmonary/Thoracic Procedure 1: Pulmonary and Thoracic: 13557 Bronchoscopy, w/EBUS 1 or 2 mediastinal Procedure 2: Pulmonary and Thoracic: 40797 Bronchoscopy, clear airways Sedation/Anesthesia Procedure 1: Sedation/Anesthesia: 11857 Mod Sedation by the same physician;Init15 Min Child Age 5 & Up (25 minutes of sedation)
--- NOTE | 2022-02-03 13:30 | XRay Report ---
XR chest 1V portable HISTORY: 61 years-old Female Post Bronchoscopy status post bronchoscopy COMPARISON: Chest CT 02/02/2022 TECHNIQUE: AP view of the chest FINDINGS: Large mediastinal mass redemonstrated. The cardiac silhouette is within normal limits. Emphysema with right perihilar densities are again noted. No postprocedural pneumothorax, large pleural effusion or overt pulmonary edema. Degenerative changes of the shoulders and spine. IMPRESSION: Large right hilar mass redemonstrated. No postbiopsy pneumothorax identified. ACT 112: Negative or not required by law. The above report was generated using voice recognition software. It may contain grammatical, syntax o r spelling errors. Electronically signed by: Stephan Phillips M.D. 02/03/2022 1:29 PM
--- NOTE | 2022-02-03 14:00 | Hospitalist Progress Note ---
Date of Service February 03, 2022 Assessment & Plan (1) Exertional dyspnea: (2) Facial edema: (3) Hilar mass: (4) SVC syndrome: Plan: Patient is 61-year-old female with PMH tobacco use, dyslipidemia presented to ER with complaint of facial swelling, exertional SOB and non-productive cough x 1 month. No noted night sweats, weight loss In ER afebrile, initially tachycardic 120s, R: 18, BP 146/97, 96% on room air. No leukocytosis SVC Syndrome Lung mass: Presumed small cell lung cancer S/P EBUS Pathology pending --CT Chest: Large lobulated right hilar mass with heterogeneity suggestive of necrosis. There is severe narrowing of the superior vena cava compatible symptoms of SVC syndrome. The right upper lobe pulmonary artery is also effaced. A few prominent lymph nodes are seen most prominently in the right subclavian station. --CT ABD:No acute abnormality and in particular no evidence of metastatic disease below the diaphragm. There is an indeterminate lesion in the left kidney inferior pole. If not previously evaluated, nonemergent renal ultrasound can be performed to exclude solid mass. --MRI Brain:No acute abnormalities. --Renal USD: pending -- Appreciate pulmonology, heme oncology, radiation oncology input --Continue Decadron for now Taper steroids as able Left renal lesion Renal ultrasound pending Elevated blood pressure Likely situational Monitor BP (5) Abnormal resting ECG findings: Plan: Troponin negative Echo pending Denies chest pain (6) Tobacco use: Plan: Nicotine patch Smoking cessation encouraged DVT Px SCDs for now Code Status Full Code Admission and Anticipated Discharge Date Admission Date: February 02, 2022 Subjective Patient is seen and examined at bedside No expectorant cough unchanged Had EBUS earlier today Subjectively feels facial swelling is slightly better Denies any chest pain, shortness of breath, dizziness, nausea, abdominal pain No other complaints Review of Systems Review of Systems: All systems reviewed & are unremarkable except as noted in Subjective Physical Exam Physical Exam: Physical Exam: Vitals signs as noted above General Appearance:Moderately built and nourished, no apparent distress Head: normocephalic, Atraumatic, + facial/lip edema Eyes: normal inspection, EOMI Neck: supple, Trachea midline Respiratory/Chest: Normal breath sounds, CTA, No accessory muscle use Cardiovascular: S1, S2, No murmur Abdomen/GI:Soft, Non tender, Bowel sounds present Extremities/Musculoskeletal:normal inspection, Trace pedal edema Neurologic/Psych:AAOX3, grossly no focal neurological deficits Skin: normal color, warm Results & Data Results & Data ([facility]) Vital Signs (Past 12 Hours) Vital Signs Temp Pulse Pulse Resp BP Pulse Ox O2 Del Method 02/03/22 13:07 84 18 128/85 96 Nasal Cannula 02/03/22 13:00 94 H 18 127/94 96 Nasal Cannula 02/03/22 12:45 89 18 141/87 H 95 Nasal Cannula 02/03/22 12:37 104 H 18 133/83 96 Nasal Cannula 02/03/22 12:27 96 H 18 175/110 H 98 High Flow Nasal Cannula 02/03/22 12:17 85 18 133/93 97 High Flow Nasal Cannula 02/03/22 12:32 94 H 18 134/93 97 High Flow Nasal Cannula 02/03/22 12:23 105 H 18 185/125 H 98 High Flow Nasal Cannula 02/03/22 12:12 80 18 143/103 H 98 High Flow Nasal Cannula 02/03/22 07:41 84 19 152/92 H 95 Room Air 02/03/22 03:23 36.8 C 88 12 127/78 95 Room Air O2 Flow Rate 02/03/22 13:07 4 02/03/22 13:00 4 02/03/22 12:45 4 02/03/22 12:37 4 02/03/22 12:27 02/03/22 12:17 02/03/22 12:32 02/03/22 12:23 02/03/22 12:12 02/03/22 07:41 02/03/22 03:23 Laboratory Results Short CBC 02/03/22 Range/Units 05:39 WBC 4.85 (4.8-10.8) K/ul Hgb 14.1 (12.0-16.0) g/dl Hct 42.2 (34.1-44.9) % Plt Count 281 (130-400) K/uL BMP 02/03/22 02/03/22 00:04 05:39 Sodium 138 138 Potassium 4.2 4.6 Chloride 107 107 Carbon Dioxide 23 24 BUN 12 11 Creatinine 0.73 0.66 Glucose 109 H 115 H Calcium 8.9 9.1
--- NOTE | 2022-02-03 14:22 | Ultrasound Report ---
RENAL ULTRASOUND HISTORY: left kidney lesion COMPARISON: Abdomen and pelvis CT 02/03/2022. FINDINGS: Right kidney: 10.6 cm. No hydronephrosis. Normal corticomedullary differentiation and cortical thickn ess. Left kidney: 11.7 cm. There is a 1.8 x 1.8 x 1.5 cm hypoechoic lesion within the lower pole of the le ft kidney. This corresponds to the CT abnormality and likely represents a solid renal mass/renal cell carcinoma. No hydronephrosis. Normal corticomedullary differentiation and cortical thickness. Bladder: No bladder wall thickening. IMPRESSION: 1. There is a 1.8 x 1.8 x 1.5 cm hypoechoic lesion within the lower pole of the left kidney. This cor responds to the CT abnormality and likely represents a solid renal mass/renal cell carcinoma. 2. Normal right kidney. ACT 112: Negative or not required by law. Electronically signed by: Min Tello M.D. 02/03/2022 2:20 PM
[2022-02-03 16:00] LABS: BUN Creatinine Ratio 16.9 (10-20); Calcium 9.2 mg/dl (8.5-10.1); Creatinine Clr Calc Pharmacy 70.9 ml/min; Est GFR (African American) 88.8 ml/min; Est GFR (Non-African American) 76.6 ml/min; Potassium 4.3 mmol/L (3.5-5.1)
[2022-02-03] MEDS ORDERED: hydrALAZINE 10 MG TAB PO PRN (17:35)
--- NOTE | 2022-02-03 17:44 | Electrocardiogram Report ---
Test Reason : Blood Pressure : / mmHG Vent. Rate : 082 BPM Atrial Rate : 082 BPM P-R Int : 132 ms QRS Dur : 070 ms QT Int : 360 ms P-R-T Axes : 064 059 069 degrees QTc Int : 420 ms Normal sinus rhythm Possible Left atrial enlargement Low voltage QRS Nonspecific ST abnormality Incomplete right bundle branch block Abnormal ECG When compared with ECG of 02-FEB-2022 12:18, No significant change was found Confirmed by Darian Martin ([id number]) on 02/03/2022 5:44:27 PM Referred By: REFERRED SELF Confirmed By:Prashant Martin
[2022-02-03 21:46] LABS: BUN Creatinine Ratio 24.4 (10-20); Calcium 9.2 mg/dl (8.5-10.1); Creatinine Clr Calc Pharmacy 65.4 ml/min; Est GFR (African American) 80.5 ml/min; Est GFR (Non-African American) 69.5 ml/min; Potassium 4.3 mmol/L (3.5-5.1)
[2022-02-04] MEDS: dexAMETHasone 4 MG in SYRINGE 0 ML IV SCH ×4 (03:27→20:47)
[2022-02-04] MEDS: ACETAMINOPHEN 325 MG TAB PO PRN (04:47)
[2022-02-04 08:00] LABS: BUN Creatinine Ratio 25.6 (10-20); Calcium 8.9 mg/dl (8.5-10.1); Creatinine Clr Calc Pharmacy 75.3 ml/min; Est GFR (African American) 95.8 ml/min; Est GFR (Non-African American) 82.6 ml/min; Phosphorus 3.5 mg/dl (2.5-4.9); Potassium 4.4 mmol/L (3.5-5.1); Uric Acid 4.9 mg/dl (2.6-7.2)
[2022-02-04] MEDS: NICOTINE 21 MG/24 HR TDSY TD SCH (08:22)
[2022-02-04] MEDS: LORazepam 0.5 MG TAB PO PRN (12:46)
[2022-02-04] MEDS ORDERED: FOSAPREPITANT DIMEGLUMINE 150 MG in SODIUM CHLORIDE 0.9% 145 ML IV SCH (13:30)
[2022-02-04] MEDS ORDERED: PALONOSETRON IV SCH (14:00)
[2022-02-04] MEDS ORDERED: DEXAMETHASONE IV SCH (14:00)
[2022-02-04] MEDS ORDERED: DEXTROSE 5% IV SCH (14:00)
[2022-02-04] MEDS ORDERED: CARBOPLATIN IV SCH (14:30)
[2022-02-04] MEDS ORDERED: SODIUM CHLORIDE 0.9% IV SCH (14:30)
[2022-02-04] MEDS: ETOPOSIDE IV SCH (15:55)
[2022-02-04] MEDS: SODIUM CHLORIDE 0.9% IV SCH (15:55)
--- NOTE | 2022-02-04 16:35 | Hospitalist Progress Note ---
Date of Service February 04, 2022 Assessment & Plan (1) Exertional dyspnea: (2) Facial edema: (3) Hilar mass: (4) SVC syndrome: Plan: Patient is 61-year-old female with PMH tobacco use, dyslipidemia presented to ER with complaint of facial swelling, exertional SOB and non-productive cough x 1 month. No noted night sweats, weight loss In ER afebrile, initially tachycardic 120s, R: 18, BP 146/97, 96% on room air. 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 There is severe narrowing of the superior vena cava compatible symptoms of SVC syndrome. The right upper lobe pulmonary artery is also effaced. A few prominent lymph nodes are seen most prominently in the right subclavian station. --CT ABD:No acute abnormality and in particular no evidence of metastatic disease below the diaphragm. There is an indeterminate lesion in the left kidney inferior pole. If not previously evaluated, nonemergent renal ultrasound can be performed to exclude solid mass. --MRI Brain:No acute abnormalities. --Renal USD: pending -- Appreciate pulmonology, heme oncology, radiation oncology input --Continue Decadron for now Taper down steroids as able Plan for first dose of chemotherapy today Left renal lesion Suspected renal cell carcinoma --Renal ultrasound:There is a 1.8 x 1.8 x 1.5 cm hypoechoic lesion within the lower pole of the left kidney. This corresponds to the CT abnormality and likely represents a solid renal mass/renal cell carcinoma. Normal right kidney. Appreciate Hemo/oncology Input Will need to be evaluated by Urology eventually Elevated blood pressure Likely situational due to steroids Monitor BP (5) Abnormal resting ECG findings: Plan: Troponin negative Echo: Normal left ventricular wall thickness. No regional wall motion normality. Left ventricle systolic motion is normal. EF 60 to 65%. Grade 1 diastolic dysfunction. No significant valvular pathology Denies chest pain (6) Tobacco use: Plan: Nicotine patch Smoking cessation encouraged DVT Px SCDs for now Lovenox SQ Code Status Full Code Admission and Anticipated Discharge Date Admission Date: February 02, 2022 Subjective Patient is seen and examined at bedside Feels facial swelling is better today Has chronic dry cough Plan for chemotherapy today Denies any chest pain, shortness of breath, dizziness, nausea, abdominal pain Review of Systems Review of Systems: All systems reviewed & are unremarkable except as noted in Subjective Physical Exam Physical Exam: Physical Exam: Vitals signs as noted above General Appearance:Moderately built and nourished, no apparent distress Head: normocephalic, Atraumatic, + facial/lip edema Eyes: normal inspection, EOMI Neck: supple, Trachea midline Respiratory/Chest: Normal breath sounds, CTA, No accessory muscle use Cardiovascular: S1, S2, No murmur Abdomen/GI:Soft, Non tender, Bowel sounds present Extremities/Musculoskeletal:normal inspection, Trace pedal edema Neurologic/Psych:AAOX3, grossly no focal neurological deficits Skin: normal color, warm Results & Data Results & Data ([facility]) Vital Signs (Past 12 Hours) Vital Signs Temp Pulse Pulse Resp BP Pulse Ox O2 Del Method 02/04/22 15:58 36.5 C 77 20 151/90 H 94 Room Air 02/04/22 12:32 36.4 C L 82 18 143/83 H 95 Room Air 02/04/22 07:30 83 02/04/22 07:30 Room Air 02/04/22 08:05 36.5 C 88 20 126/82 95 Room Air Laboratory Results BMP 02/03/22 02/04/22 21:01 07:28 Sodium 138 137 Potassium 4.3 4.4 Chloride 106 105 Carbon Dioxide 23 24 BUN 22 20 Creatinine 0.90 0.78 Glucose 158 H 167 H Calcium 9.2 8.9
[2022-02-05] MEDS: ACETAMINOPHEN 325 MG TAB PO PRN ×2 (00:14→08:20)
[2022-02-05] MEDS: dexAMETHasone 4 MG in SYRINGE 0 ML IV SCH ×3 (03:45→19:44)
[2022-02-05 06:40] LABS: BUN Creatinine Ratio 27.9 (10-20); Calcium 8.6 mg/dl (8.5-10.1); Creatinine Clr Calc Pharmacy 87.9 ml/min; Est GFR (African American) 110.2 ml/min; Est GFR (Non-African American) 95.1 ml/min; Phosphorus 3.5 mg/dl (2.5-4.9); Potassium 4.2 mmol/L (3.5-5.1); Uric Acid 5.1 mg/dl (2.6-7.2)
[2022-02-05] MEDS: NICOTINE 21 MG/24 HR TDSY TD SCH (08:21)
[2022-02-05 08:22] LABS: Estimated Average Glucose 111 mg/dl; Hemoglobin A1C 5.5 % (4.5-5.6)
[2022-02-05] MEDS: ENOXAPARIN INJ 40 MG/0.4 ML SYR SQ SCH (08:22)
[2022-02-05] MEDS: dexAMETHasone 4 MG TAB PO SCH (14:37)
[2022-02-05] MEDS: ETOPOSIDE IV SCH (15:13)
[2022-02-05] MEDS: SODIUM CHLORIDE 0.9% IV SCH (15:13)
--- NOTE | 2022-02-05 15:26 | Hospitalist Progress Note ---
Date of Service February 05, 2022 Assessment & Plan (1) Exertional dyspnea: (2) Facial edema: (3) Hilar mass: (4) SVC syndrome: Plan: Patient is 61-year-old female with PMH tobacco use, dyslipidemia presented to ER with complaint of facial swelling, exertional SOB and non-productive cough x 1 month. No noted night sweats, weight loss In ER afebrile, initially tachycardic 120s, R: 18, BP 146/97, 96% on room air. 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 There is severe narrowing of the superior vena cava compatible symptoms of SVC syndrome. The right upper lobe pulmonary artery is also effaced. A few prominent lymph nodes are seen most prominently in the right subclavian station. --CT ABD:No acute abnormality and in particular no evidence of metastatic disease below the diaphragm. There is an indeterminate lesion in the left kidney inferior pole. If not previously evaluated, nonemergent renal ultrasound can be performed to exclude solid mass. --MRI Brain:No acute abnormalities. -- Appreciate pulmonology, heme oncology, radiation oncology input Taper down Decadron Continue 2nd cycle of chemotherapy today Left renal lesion Suspected renal cell carcinoma --Renal ultrasound:There is a 1.8 x 1.8 x 1.5 cm hypoechoic lesion within the lower pole of the left kidney. This corresponds to the CT abnormality and likely represents a solid renal mass/renal cell carcinoma. Normal right kidney. Appreciate Hemo/oncology Input Will need to be evaluated by Urology eventually Elevated blood pressure Likely situational due to steroids Monitor BP Bp better today (5) Abnormal resting ECG findings: Plan: Troponin negative Echo: Normal left ventricular wall thickness. No regional wall motion normality. Left ventricle systolic motion is normal. EF 60 to 65%. Grade 1 diastolic dysfunction. No significant valvular pathology Denies chest pain (6) Tobacco use: Plan: Nicotine patch Smoking cessation encouraged DVT Px SCDs for now Encouraged to ambulate Lovenox SQ--Patient refused Code Status Full Code Admission and Anticipated Discharge Date Admission Date: February 02, 2022 Subjective Patient is seen and examined at bedside reports minimal headache Facial swelling is about same as yesterday Has chronic dry cough Plan for 2nd cycle of chemotherapy today Denies any chest pain, shortness of breath, dizziness, nausea, abdominal pain Review of Systems Review of Systems: All systems reviewed & are unremarkable except as noted in Subjective Physical Exam Physical Exam: Physical Exam: Vitals signs as noted above General Appearance:Moderately built and nourished, no apparent distress Head: normocephalic, Atraumatic, + facial/lip edema Eyes: normal inspection, EOMI Neck: supple, Trachea midline Respiratory/Chest: Normal breath sounds, CTA, No accessory muscle use Cardiovascular: S1, S2, No murmur Abdomen/GI:Soft, Non tender, Bowel sounds present Extremities/Musculoskeletal:normal inspection, Trace pedal edema Neurologic/Psych:AAOX3, grossly no focal neurological deficits Skin: normal color, warm Results & Data Results & Data ([facility]) Vital Signs (Past 12 Hours) Vital Signs Temp Pulse Pulse Resp BP Pulse Ox O2 Del Method 02/05/22 11:54 36.5 C 69 16 131/79 95 Room Air 02/05/22 07:30 64 02/05/22 07:30 Room Air 02/05/22 07:21 36.5 C 68 16 143/83 H 97 Room Air 02/05/22 03:50 36.6 C 66 16 141/93 H 95 Room Air Laboratory Results [facility] 02/05/22 05:28 Sodium 138 Potassium 4.2 Chloride 106 Carbon Dioxide 24 BUN 19 Creatinine 0.68 Glucose 150 H Calcium 8.6
[2022-02-05] MEDS: LORazepam 0.5 MG TAB PO PRN (20:25)
[2022-02-06] MEDS: ACETAMINOPHEN 325 MG TAB PO PRN (02:46)
[2022-02-06 07:19] LABS: Hematocrit (blood only) 40.2 % (34.1-44.9); Hemoglobin 13.4 g/dl (12.0-16.0); Mean Corpuscular Hemoglobin 30.6 pg (25.0-34.0); Mean Corpuscular Hgb Conc 33.3 g/dL (32.0-36.0); Mean Corpuscular Volume 91.8 fL (80.0-100.0); Platelet Count 255 K/uL (130-400); RDW Standard Deviation 47.8 fL (36.4-46.3); Red Blood Count 4.38 M/uL (3.93-5.22); White Blood Count 9.13 K/ul (4.8-10.8)
[2022-02-06 07:44] LABS: BUN Creatinine Ratio 28.6 (10-20); Calcium 8.3 mg/dl (8.5-10.1); Creatinine Clr Calc Pharmacy 95.3 ml/min; Est GFR (Non-African American) 97.5 ml/min; Phosphorus 3.9 mg/dl (2.5-4.9); Potassium 4.6 mmol/L (3.5-5.1)
[2022-02-06] MEDS: NICOTINE 21 MG/24 HR TDSY TD SCH (08:00)
[2022-02-06] MEDS: ENOXAPARIN INJ 40 MG/0.4 ML SYR SQ SCH (08:00)
[2022-02-06] MEDS: dexAMETHasone 4 MG in SYRINGE 0 ML IV SCH ×2 (08:00→20:09)
[2022-02-06] MEDS: DOCUSATE SODIUM 100 MG CAP PO SCH ×2 (12:28→20:11)
--- NOTE | 2022-02-06 13:49 | Hospitalist Progress Note ---
Date of Service February 06, 2022 Assessment & Plan (1) Exertional dyspnea: (2) Facial edema: (3) Hilar mass: (4) SVC syndrome: Plan: Patient is 61-year-old female with PMH tobacco use, dyslipidemia presented to ER with complaint of facial swelling, exertional SOB and non-productive cough x 1 month. No noted night sweats, weight loss In ER afebrile, initially tachycardic 120s, R: 18, BP 146/97, 96% on room air. 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 There is severe narrowing of the superior vena cava compatible symptoms of SVC syndrome. The right upper lobe pulmonary artery is also effaced. A few prominent lymph nodes are seen most prominently in the right subclavian station. --CT ABD:No acute abnormality and in particular no evidence of metastatic disease below the diaphragm. There is an indeterminate lesion in the left kidney inferior pole. If not previously evaluated, nonemergent renal ultrasound can be performed to exclude solid mass. --MRI Brain:No acute abnormalities. -- Appreciate pulmonology, heme oncology, radiation oncology input Taper down Decadron as able Plan for 3rd cycle of chemotherapy today Continue current management Left renal lesion Suspected renal cell carcinoma --Renal ultrasound:There is a 1.8 x 1.8 x 1.5 cm hypoechoic lesion within the lower pole of the left kidney. This corresponds to the CT abnormality and likely represents a solid renal mass/renal cell carcinoma. Normal right kidney. Appreciate Hemo/oncology Input Will need to be evaluated by Urology eventually Elevated blood pressure Likely situational due to steroids Monitor BP (5) Abnormal resting ECG findings: Plan: Troponin negative Echo: Normal left ventricular wall thickness. No regional wall motion normality. Left ventricle systolic motion is normal. EF 60 to 65%. Grade 1 diastolic dysfunction. No significant valvular pathology Denies chest pain (6) Tobacco use: Plan: Nicotine patch Smoking cessation encouraged DVT Px SCDs for now Encouraged to ambulate Lovenox SQ--Patient refused Code Status Full Code Admission and Anticipated Discharge Date Admission Date: February 02, 2022 Subjective Patient is seen and examined at bedside Still has minimal headache Also reports constipation Subjectively unsure if facial swelling is better Chronic dry cough Plan for 3rd cycle of chemotherapy today Denies any chest pain, shortness of breath, dizziness, nausea, abdominal pain Review of Systems Review of Systems: All systems reviewed & are unremarkable except as noted in Subjective Physical Exam Physical Exam: Physical Exam: Vitals signs as noted above General Appearance:Moderately built and nourished, no apparent distress Head: normocephalic, Atraumatic, + facial/lip edema Eyes: normal inspection, EOMI Neck: supple, Trachea midline Respiratory/Chest: Normal breath sounds, CTA, No accessory muscle use Cardiovascular: S1, S2, No murmur Abdomen/GI:Soft, Non tender, Bowel sounds present Extremities/Musculoskeletal:normal inspection, Trace pedal edema Neurologic/Psych:AAOX3, grossly no focal neurological deficits Skin: normal color, warm Results & Data Results & Data ([facility]) Vital Signs (Past 12 Hours) Vital Signs Temp Pulse Pulse Resp BP Pulse Ox O2 Del Method 02/06/22 12:23 36.7 C 65 16 147/88 H 94 Room Air 02/06/22 08:00 61 02/06/22 08:00 Room Air 02/06/22 07:56 36.4 C L 67 16 153/81 H 96 Room Air 02/06/22 03:43 36.6 C 65 18 124/71 96 Room Air Laboratory Results Short CBC 02/06/22 Range/Units 06:41 WBC 9.13 (4.8-10.8) K/ul Hgb 13.4 (12.0-16.0) g/dl Hct 40.2 (34.1-44.9) % Plt Count 255 (130-400) K/uL [facility] [place] [facility] 02/06/22 06:41 Sodium 137 Potassium 4.6 Chloride 106 Carbon Dioxide 27 BUN 18 Creatinine 0.63 Glucose 107 H Calcium 8.3 L
[2022-02-06] MEDS ORDERED: PALONOSETRON 0.25 MG in SYRINGE 0 ML IV SCH (14:30)
[2022-02-06] MEDS: dexAMETHasone 4 MG TAB PO SCH (15:30)
[2022-02-06] MEDS: ETOPOSIDE IV SCH (16:03)
[2022-02-06] MEDS: SODIUM CHLORIDE 0.9% IV SCH (16:03)
[2022-02-06] MEDS: LORazepam 0.5 MG TAB PO PRN (20:11)
[2022-02-07 05:58] LABS: Hematocrit (blood only) 42.4 % (34.1-44.9); Mean Corpuscular Hemoglobin 30.2 pg (25.0-34.0); Mean Corpuscular Volume 91.6 fL (80.0-100.0); Mean Platelet Volume 9.1 fL (9.4-12.3); Platelet Count 255 K/uL (130-400); RDW Coefficient of Variation 13.8 % (11.5-14.5); RDW Standard Deviation 46.5 fL (36.4-46.3); Red Blood Count 4.63 M/uL (3.93-5.22); White Blood Count 6.69 K/ul (4.8-10.8)
[2022-02-07] MEDS: ACETAMINOPHEN 325 MG TAB PO PRN (06:12)
[2022-02-07 06:24] LABS: BUN Creatinine Ratio 30.6 (10-20); Calcium 8.4 mg/dl (8.5-10.1); Creatinine Clr Calc Pharmacy 96.9 ml/min; Est GFR (African American) 113.6 ml/min; Potassium 4.7 mmol/L (3.5-5.1); Uric Acid 5.1 mg/dl (2.6-7.2)
[2022-02-07] MEDS: DOCUSATE SODIUM 100 MG CAP PO SCH (07:56)
[2022-02-07] MEDS: dexAMETHasone 4 MG in SYRINGE 0 ML IV SCH (07:56)
[2022-02-07] MEDS: ENOXAPARIN INJ 40 MG/0.4 ML SYR SQ SCH (07:57)
[2022-02-07] MEDS: NICOTINE 21 MG/24 HR TDSY TD SCH (07:57)
--- NOTE | 2022-02-07 13:33 | Hospitalist Progress Note ---
Date of Service February 07, 2022 Assessment & Plan (1) Exertional dyspnea: (2) Facial edema: (3) Hilar mass: (4) SVC syndrome: Plan: Patient is 61-year-old female with PMH tobacco use, dyslipidemia presented to ER with complaint of facial swelling, exertional SOB and non-productive cough x 1 month. No noted night sweats, weight loss In ER afebrile, initially tachycardic 120s, R: 18, BP 146/97, 96% on room air. 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 There is severe narrowing of the superior vena cava compatible symptoms of SVC syndrome. The right upper lobe pulmonary artery is also effaced. A few prominent lymph nodes are seen most prominently in the right subclavian station. --CT ABD:No acute abnormality and in particular no evidence of metastatic disease below the diaphragm. There is an indeterminate lesion in the left kidney inferior pole. If not previously evaluated, nonemergent renal ultrasound can be performed to exclude solid mass. --MRI Brain:No acute abnormalities. -- Appreciate pulmonology, heme oncology, radiation oncology input Decadron discontinued (Discussed with Oncology on 02/07/22) Completed 3 cycles of chemotherapy on 02/06/22 Discussed with Radiation Oncology . Needs follow up as outpatient Advised to follow-up with heme oncology and radiation oncology upon discharge as outpatient Left renal lesion Suspected renal cell carcinoma --Renal ultrasound:There is a 1.8 x 1.8 x 1.5 cm hypoechoic lesion within the lower pole of the left kidney. This corresponds to the CT abnormality and likely represents a solid renal mass/renal cell carcinoma. Normal right kidney. Appreciate Hemo/oncology Input Advised to follow up with Urology as outpatient Elevated blood pressure Likely situational due to steroids Monitor BP (5) Abnormal resting ECG findings: Plan: Troponin negative Echo: Normal left ventricular wall thickness. No regional wall motion normality. Left ventricle systolic motion is normal. EF 60 to 65%. Grade 1 diastolic dysfunction. No significant valvular pathology Denies chest pain (6) Tobacco use: Plan: Nicotine patch Smoking cessation encouraged DVT Px SCDs for now Encouraged to ambulate Lovenox SQ--Patient refused Code Status Full Code Admission and Anticipated Discharge Date Admission Date: February 02, 2022 Subjective Patient is seen and examined at bedside Decreased Facial swelling No new complaints Chronic dry cough Denies any chest pain, shortness of breath, dizziness, nausea, abdominal pain Discussed with Oncology today Review of Systems Review of Systems: All systems reviewed & are unremarkable except as noted in Subjective Physical Exam Physical Exam: Physical Exam: Vitals signs as noted above General Appearance:Moderately built and nourished, no apparent distress Head: normocephalic, Atraumatic, + facial/lip edema Eyes: normal inspection, EOMI Neck: supple, Trachea midline Respiratory/Chest: Normal breath sounds, CTA, No accessory muscle use Cardiovascular: S1, S2, No murmur Abdomen/GI:Soft, Non tender, Bowel sounds present Extremities/Musculoskeletal:normal inspection, Trace pedal edema Neurologic/Psych:AAOX3, grossly no focal neurological deficits Skin: normal color, warm Results & Data Results & Data ([facility]) Vital Signs (Past 12 Hours) Vital Signs Temp Pulse Pulse Resp BP Pulse Ox O2 Del Method 02/07/22 11:47 36.7 C 83 16 148/91 H 95 Room Air 02/07/22 07:45 67 02/07/22 07:45 Room Air 02/07/22 09:32 36.5 C 75 16 129/74 95 Room Air 02/07/22 04:11 36.7 C 61 18 137/74 97 Room Air 02/07/22 01:34 36.6 C 65 18 156/84 H 96 Room Air Laboratory Results Short CBC 02/07/22 Range/Units 05:29 WBC 6.69 (4.8-10.8) K/ul Hgb 14.0 (12.0-16.0) g/dl Hct 42.4 (34.1-44.9) % Plt Count 255 (130-400) K/uL BMP 02/07/22 05:29 Sodium 136 Potassium 4.7 Chloride 105 Carbon Dioxide 26 BUN 19 Creatinine 0.62 Glucose 105 H Calcium 8.4 L
--- NOTE | 2022-02-07 13:52 | Discharge Summary ---
Date of Service February 07, 2022 Admission HPI Per Admitting Provider Patient is 61-year-old female with PMH tobacco use, dyslipidemia presented to ER with complaint of facial swelling x 1 month. Patient reports for the past month has noticed facial swelling. Also c/o exertional SOB and non-productive cough. Has been having orthopnea for months, sleeps in recliner chair. Reports has been having right chest/axillary pressure for greater than 1 month. Feels some anterior chest pressure. Feels breasts are also more swollen today. She noticed neck seemed swollen also. Has not noticed swollen or tender lymph nodes to axilla. Today she took her pulse and reports had rate of 120 so she decided she should come to ER for evaluation. Denies sensation of skipped beats. 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 Patient reports was seen at urgent care 01/27/2022 for facial swelling and was placed on doxycycline for possible sinus infection without relief of facial swelling. Has been having some nausea but has been eating and drinking normally and without vomiting. Is unsure if nausea began after taking doxycycline. Has not seen PCP for years. Denies any noted weight loss, night sweats, hemoptysis dysphagia, dysphagia, fever/chills, V/D/C, MEDINA, dizziness, syncope, vision changes, sore throat, otalgia, rhinorrhea, abdominal pain, paresthesias, weakness, extremity weakness, extremity edema, rashes, urinary symptoms. Admission Exam Per Admitting Provider General: no acute distress, WDWN Head: normocephalic, atraumatic Eyes: PERRL, EOM's intact, conjunctiva non-injected, anicteric ENT: normal inspection external ears, nose, mucous membranes moist Face: +diffuse edema Neck: supple, trachea midline, +distended neck and chest veins Lungs: clear, no respiratory distress, no wheezing/rhonchi/rales CV: RRR, rate 92, no murmur, no pretibial edema Abd: normal BS, soft, non-tender Ext: no cyanosis, no erythema, no calf tenderness Neuro: A&O x 3, no focal deficits noted, normal affect Skin: warm, dry Principal Diagnosis SVC Syndrome Small cell Lung carcinoma Suspected left renal cell carcinoma Tobacco use disorder Discharge Data Allergies Allergy/AdvReac Type Severity Reaction Status Date / Time naproxen Allergy Intermediate ITCHY HIVES Verified 02/02/22 15:53 Consultations 02/02/22 16:08 ED Decision to Admit Stat 02/03/22 07:00 Consult Oncology Routine Consult Radiation Oncology Routine Procedures Performed Operation Date: 02/03/22 12:00 Actual Procedures s Bronchoscopy Radiology - Lenny Shaw MD p Endobronchial Ultrasound (EBUS) - Lenny Shaw MD Laboratory Results WBC 6.69 K/ul (4.8-10.8) 02/07/22 05:29 RBC 4.63 M/uL (3.93-5.22) 02/07/22 05:29 Hgb 14.0 g/dl (12.0-16.0) 02/07/22 05:29 Hct 42.4 % (34.1-44.9) 02/07/22 05:29 MCV 91.6 fL (80.0-100.0) 02/07/22 05:29 MCH 30.2 pg (25.0-34.0) 02/07/22 05:29 MCHC 33.0 g/dL (32.0-36.0) 02/07/22 05:29 RDW Std Deviation 46.5 fL (36.4-46.3) H 02/07/22 05:29 RDW Coeff of Sohail 13.8 % (11.5-14.5) 02/07/22 05:29 Plt Count 255 K/uL (130-400) 02/07/22 05:29 MPV 9.1 fL (9.4-12.3) L 02/07/22 05:29 Immature Gran % (Auto) 0.2 % 02/02/22 12:10 Neut % (Auto) 73.6 % 02/02/22 12:10 Lymph % (Auto) 19.8 % 02/02/22 12:10 [place] % (Auto) 5.1 % 02/02/22 12:10 Eos % (Auto) 0.7 % 02/02/22 12:10 Baso % (Auto) 0.6 % 02/02/22 12:10 Neut # (Auto) 6.32 K/uL (1.4-6.5) 02/02/22 12:10 Lymph # (Auto) 1.70 K/uL (1.2-3.4) 02/02/22 12:10 [place] # (Auto) 0.44 K/uL (0.24-0.82) 02/02/22 12:10 Eos # (Auto) 0.06 K/uL (0-0.50) 02/02/22 12:10 Baso # (Auto) 0.05 K/uL (0-0.2) 02/02/22 12:10 Immature Gran # (Auto) 0.02 K/uL (0.00-0.02) 02/02/22 12:10 PT 11.5 Seconds (9.0-12.0) 02/02/22 18:39 INR 1.1 (0.9-1.1) 02/02/22 18:39 APTT 25.1 Seconds (21.0-31.0) 02/02/22 18:39 PTT Ratio 0.9 02/02/22 18:39 Sodium 136 mmol/L (136-145) 02/07/22 05:29 Potassium 4.7 mmol/L (3.5-5.1) 02/07/22 05:29 Chloride 105 mmol/L (98-107) 02/07/22 05:29 Carbon Dioxide 26 mmol/L (21-32) 02/07/22 05:29 Anion Gap 5 (3-11) 02/07/22 05:29 BUN 19 mg/dl (6-23) 02/07/22 05:29 Creatinine 0.62 mg/dl (0.6-1.2) 02/07/22 05:29 Est Cr Clr Drug Dosing 96.9 ml/min 02/07/22 05:29 Est GFR ( Amer) 113.6 ml/min 02/07/22 05:29 Est GFR (Non-Af Amer) 98.0 ml/min 02/07/22 05:29 BUN/Creatinine Ratio 30.6 (10-20) H 02/07/22 05:29 Glucose 105 mg/dl (70-99(Fasting)) H 02/07/22 05:29 Estimat Average Glucose 111 mg/dl 02/05/22 05:28 Hemoglobin A1c 5.5 % (4.5-5.6) 02/05/22 05:28 Uric Acid 5.1 mg/dl (2.6-7.2) 02/07/22 05:29 Calcium 8.4 mg/dl (8.5-10.1) L 02/07/22 05:29 Phosphorus 4.0 mg/dl (2.5-4.9) 02/07/22 05:29 Total Bilirubin 0.5 mg/dl (0.2-1.0) 02/02/22 12:10 AST 18 U/L (13-39) 02/02/22 12:10 ALT 7 U/L (7-52) 02/02/22 12:10 Alkaline Phosphatase 79 U/L (34-104) 02/02/22 12:10 Lactate Dehydrogenase 186 U/L (86-244) 02/03/22 08:37 Troponin I High Sens 3.9 pg/ml (0-14) 02/03/22 05:39 B-Natriuretic Peptide 24 pg/ml (0-100) 02/02/22 12:10 Total Protein 7.3 gm/dl (6.0-8.3) 02/02/22 12:10 Albumin 4.3 gm/dl (3.4-5.0) 02/02/22 12:10 Globulin 3.0 gm/dl (2.5-4.0) 02/02/22 12:10 Albumin/Globulin Ratio 1.4 (0.9-2) 02/02/22 12:10 SARS-CoV-2, RNA, NAAT NEGATIVE (NEGATIVE) 02/02/22 18:[address] 02/02/22 14:42 CT chest diagnostic w con CLINICAL HISTORY: R lung mass, SVC sx TECHNIQUE: Multidetector row helical CT of the chest was performed with int ravenous contrast. Coronal and sagittal reformations were obtained. Automated dose lowering techniques and/or adjustment according to patient size were utilized for this exam. CT DOSE: 625.07 mGy.cm Comparison: Comparison is made to chest radiograph 02/02/2022 FINDINGS: Lungs and pleura: Emphysema is seen. There is a 9 cm lobulated, heterogeneous appearing right hilar mass encasing the superior vena cava. There is postobstructive atelectasis in the upper lobe. There is a 3 mm nodule in the right lower lobe (series 4 image 207). Heart and pericardium: Heart size is normal. No pericardial effusion. Vessels: There is severe narrowing of the right upper lobe pulmonary artery as well as the superior vena cava. Collateral formation is seen. No evidence of pulmonary embolus within the limits of a nondedicated exam. Mediastinum and tasha: No discrete mediastinal lymph nodes are seen. Chest wall and lower neck: Subcentimeter axillary lymph nodes noted. Multiple enlarged right subclavian lymph nodes measure up to 13 mm in diameter. Abdomen: There is thickening of the left adrenal gland. A splenule is incidentally seen. Bones: Degenerative changes in the thoracic spine. IMPRESSION: Large lobulated right hilar mass with heterogeneity suggestive of necrosis. There is severe narrowing of the superior vena cava compatible symptoms of SVC syndrome. The right upper lobe pulmonary artery is also effaced. A few prominent lymph nodes are seen most prominently in the right subclavian station. ACT 112: Negative or not required by law. Electronically signed by: Glenroy Monte M.D. 02/02/2022 3:17 PM Abdomen/Pelvis CT 02/03/22 08:00 CT abd pelvis IV con only CLINICAL HISTORY: R/O mass/mets TECHNIQUE: Helical axial images of the abdomen and pelvis were obtained and displayed. Automated dose lowering techniques and/or adjustment according to patient size were utilized for this exam. This exam was performed with intravenous contrast. CT DOSE: 640.83 mGy.cm COMPARISON: None available at the time of this dictation. FINDINGS: Lower chest: No acute abnormality. Liver: Unremarkable. No focal lesions are seen. Gallbladder and biliary tree: No calcified gallstones. Normal caliber wall. No intra- or extrahepatic biliary ductal dilation. Pancreas: Unremarkable, no focal lesions. Spleen: Unremarkable. Adrenals: Unremarkable. Kidneys and ureters: There is a complex appearing hypoenhancing lesion in the left kidney inferior pole measuring 13 mm in diameter. Bladder: Limited evaluation due to underdistention. Reproductive organs: Unremarkable. Bowel: Unremarkable appearance of the bowel. The appendix is normal. Lymph nodes Retroperitoneal: Unremarkable. Pelvic: Unremarkable. Mesenteric: Unremarkable. Peritoneum: Normal. Vessels: Atherosclerotic calcifications are seen. Abdominal wall: Unremarkable. Bones: Degenerative changes in the visualized spine. IMPRESSION: No acute abnormality and in particular no evidence of metastatic disease below the diaphragm. ACT 112: Negative or not required by law. Electronically signed by: Glenroy Monte M.D. 02/03/2022 8:30 AM Renal Ultrasound 02/03/22 08:53 RENAL ULTRASOUND HISTORY: left kidney lesion COMPARISON: Abdomen and pelvis CT 02/03/2022. FINDINGS: Right kidney: 10.6 cm. No hydronephrosis. Normal corticomedullary differentiation and cortical thickness. Left kidney: 11.7 cm. There is a 1.8 x 1.8 x 1.5 cm hypoechoic lesion within the lower pole of the left kidney. This corresponds to the CT abnormality and likely represents a solid renal mass/renal cell carcinoma. No hydronephrosis. Normal corticomedullary differentiation and cortical thickness. Bladder: No bladder wall thickening. IMPRESSION: 1. There is a 1.8 x 1.8 x 1.5 cm hypoechoic lesion within the lower pole of the left kidney. This corresponds to the CT abnormality and likely represents a solid renal mass/renal cell carcinoma. 2. Normal right kidney. ACT 112: Negative or not required by law. Electronically signed by: Min Tello M.D. 02/03/2022 2:20 PM Chest X-Ray 02/03/22 12:59 XR chest 1V portable HISTORY: 61 years-old Female Post Bronchoscopy status post bronchoscopy COMPARISON: Chest CT 02/02/2022 TECHNIQUE: AP view of the chest FINDINGS: Large mediastinal mass redemonstrated. The cardiac silhouette is within normal limits. Emphysema with right perihilar densities are again noted. No postprocedural pneumothorax, large pleural effusion or overt pulmonary edema. Degenerative changes of the shoulders and spine. IMPRESSION: Large right hilar mass redemonstrated. No postbiopsy pneumothorax identified. ACT 112: Negative or not required by law. The above report was generated using voice recognition software. It may contain grammatical, syntax or spelling errors. Electronically signed by: Stephan Phillips M.D. 02/03/2022 1:29 PM Brain MRI 02/03/22 20:57 MR brain wo/w con CLINICAL HISTORY: R/O mets TECHNIQUE: Multiplanar and multisequence MR images of the brain were obtained p rior to and following administration of gadolinium contrast. Comparison: None available at the time of this dictation. FINDINGS: No abnormal restricted diffusion is identified. The white matter is unremarkable. The ventricular system is normal in appearance. No mass or abnormal enhancement is seen. There is no mass effect or midline shift. There is no evidence of acute intraparenchymal hemorrhage. No extra axial fluid collections are seen. The corpus callosum, pituitary gland, and cerebellar tonsils appear grossly unremarkable. Flow voids of the major intracranial arterial vessels are identified. The imaged portions of the paranasal sinuses, mastoid air cells, and orbits are unremarkable. IMPRESSION: No acute abnormalities. ACT 112: Negative or not required by law. Electronically signed by: Glenroy Monte M.D. 02/03/2022 9:52 AM Ordered Studies 02/02/22 14:42 CT chest with contrast [CT chest diagnostic w con] Stat 02/03/22 08:00 CT Abd and Pelvis [CT abd pelvis IV con only] Urgent 02/03/22 08:53 US Renal Bladder [US renal/blad retro comp] Routine 02/03/22 20:57 MR brain wo/w con Routine Hospital Course (1) Exertional dyspnea: (2) Facial edema: (3) Hilar mass: (4) SVC syndrome: Patient is 61-year-old female with PMH tobacco use, dyslipidemia presented to ER with complaint of facial swelling, exertional SOB and non-productive cough x 1 month. No noted night sweats, weight loss In ER afebrile, initially tachycardic 120s, R: 18, BP 146/97, 96% on room air. No leukocytosis SVC Syndrome Small cell lung cancer S/P EBUS Pathology: Suggestive of small cell carcinoma --CT Chest: Large lobulated right hilar mass with heterogeneity suggestive of necrosis. There is severe narrowing of the superior vena cava compatible symptoms of SVC syndrome. The right upper lobe pulmonary artery is also effaced. A few prominent lymph nodes are seen most prominently in the right subclavian station. --CT ABD:No acute abnormality and in particular no evidence of metastatic disease below the diaphragm. There is an indeterminate lesion in the left kidney inferior pole. If not previously evaluated, nonemergent renal ultrasound can be performed to exclude solid mass. --MRI Brain:No acute abnormalities. -- Appreciate pulmonology, heme oncology, radiation oncology input Decadron discontinued (Discussed with Oncology on 02/07/22) Completed 3 cycles of chemotherapy on 02/06/22 Discussed with Radiation Oncology . Needs follow up as outpatient Advised to follow-up with heme oncology and radiation oncology upon discharge as outpatient Left renal lesion Suspected renal cell carcinoma --Renal ultrasound:There is a 1.8 x 1.8 x 1.5 cm hypoechoic lesion within the lower pole of the left kidney. This corresponds to the CT abnormality and likely represents a solid renal mass/renal cell carcinoma. Normal right kidney. Appreciate Hemo/oncology Input Advised to follow up with Urology as outpatient Elevated blood pressure Likely situational due to steroids Monitor BP (5) Abnormal resting ECG findings: Troponin negative Echo: Normal left ventricular wall thickness. No regional wall motion normality. Left ventricle systolic motion is normal. EF 60 to 65%. Grade 1 diastolic dysfunction. No significant valvular pathology Denies chest pain (6) Tobacco use: Nicotine patch Smoking cessation encouraged DVT Px SCDs for now Encouraged to ambulate Lovenox SQ--Patient refused Code Status Full Code Total Time Total Time Spent Total Time Spent (In Minutes): 59 minutes Discharge Plan Discharge Items Patient Disposition: Home - Self-Care Reason For Visit: hilar mass Discharge Diagnosis: SVC Syndrome Small cell Lung carcinoma Suspected left renal cell carcinoma Tobacco use disorder Activity: Per Instructions section Exercise/Sports: Wait until after follow-up appointment Non-emergency contact: Primary Care Provider, Oncologist and Urologist Call non-emergency contact if: you have any medication questions, your symptoms worsen, your pain is concerning for you and you have a fever Follow-up/Referrals: PCP,NO [Primary Care Provider] - Diet: Regular Addtl Attending Provider Instructions: Follow-up with your primary care physician in 1 week as advised Follow-up with your oncologist in 1-2 weeks. Please call for appointment Follow-up with your radiation oncologist in 1 week Follow-up with your urologist for further evaluation of your Kidneys as advised ... Quit smoking tobacco as advised. -- Monitor your blood pressure regularly at home. Discuss with your physician regarding need for antihypertensives for managing your blood pressure as needed. Seek immediate medical attention if your symptoms reoccur or worsen Please take all medications as instructed on discharge list below. Please call if you have any questions or problems. You can reach a [facility] hospitalist on duty at [facility] 24 hours a day by calling [phone] Pending Studies at Discharge: No Stand-Alone Forms: My [facility] [employer], Smoking Cessation Medications and DC Order Prescriptions: New polyethylene glycol 3350 [Miralax] 17 gram Powder In Packet 17 g PO DAILY PRN (Reason: constipation) Qty: 14 0RF docusate sodium 100 mg Capsule 100 mg PO BID PRN (Reason: Constipation) Qty: 30 0RF ondansetron HCl 8 mg tablet 8 mg PO Q8H PRN (Reason: nausea and vomiting) Qty: 30 0RF Continued acetaminophen [Tylenol Extra Strength] 500 mg Tablet 1,000 mg PO QAM Rx Instructions: PER PT "SOMETIMES TAKE 2 TABS AT HS, WHEN NEEDED". Discontinued doxycycline hyclate 100 mg capsule 100 mg PO BID Rx Instructions: STARTED 01/27/22 FOR 10 DAYS. Discharge Orders: Discharge Order (Routine); Ordered 02/07/22 Ordered By: Vignesh Tomas Admission Data Admit Date/Time: 02/02/22 17:35 Attending Provider: Vignesh Tomas Admit Provider: Vignesh Tomas Primary Care Provider: PCP,NO Other Providers: Vignesh Tomas ; Kenzie Barr ; Pollo Vaz
[2022-02-08] MEDS ORDERED: dexAMETHasone 4 MG in SYRINGE 0 ML IV SCH (09:00)
== END 2022-02-07 15:04 | disposition home or self-care (01) | DRG 167 ==
LOC: ED 10:23 → EDINP 17:35 → 4W 20:56

== ENCOUNTER 2023-09-04 15:27 | Inpatient (IN) ==
--- NOTE | 2023-09-04 15:44 | ED Triage Note ---
Date of Service September 04, 2023 Provider in Triage Author: Dada Mcgee History of Present Illness This patient was briefly evaluated while in triage. An abbreviated physical exam was performed. This patient is a 63-year-old Female who presents to the ED for evaluation metastatic lung cancer increasing SOB x few weeks had thoracentesis on Monday (1.5L) felt better but for only a day SOB returned Monday, increasing SOB with activity, now speaking current chemo, no radiation Physical Exam GENERAL: NAD, tachycardic, afebrile, oxygen sat 98% on RA CARDIOVASCULAR: RRR RESPIRATORY: BS diminished bilaterally ABDOMEN: BS x 4. Nontender to palpation. Initial orders for labs and / or imaging were placed and patient was placed in the waiting area until a bed is available. Please see further documentation for the full ED course.
--- NOTE | 2023-09-04 16:19 | XRay Report ---
XR chest 1V not portable CLINICAL HISTORY: SOB s/p thoracentesis TECHNIQUE: Single frontal radiograph of the chest was obtained. Comparison: Comparison is made to chest radiograph 09/01/2023 FINDINGS: Lines and tubes are stable. The cardiomediastinal silhouette is stable. Right suprahilar mass is agai n seen. Redemonstration of small bilateral pleural effusions. No pneumothorax. IMPRESSION: No pneumothorax is seen. Stable right suprahilar mass and bilateral pleural effusions. ACT 112: Negative or not required by law. Electronically signed by: Glenroy Monte M.D. 09/04/2023 4:18 PM
[2023-09-04] MEDS: OPTIRAY 320 125ml IV ONE (17:15)
[2023-09-04] MEDS: ALBUT/IPRATROP 3MG/0.5MG NEB 3 ML VIAL NEB ONE (17:18)
--- NOTE | 2023-09-04 17:42 | CT Scan Report ---
CT angio chest PE protocol CLINICAL HISTORY: Dyspnea TECHNIQUE: Multidetector row helical CT of the chest was performed with angiographic protocol. Mart l and sagittal reformations were obtained. Coronal and sagittal MIPS were obtained from the axial layla a set and were submitted for review. Automated dose lowering techniques and/or adjustment according to patient size were utilized for this exam. CT DOSE: 886.81 mGy.cm Comparison: Comparison is made to CT chest 08/30/2023 FINDINGS: Lungs and pleura: Moderate right and small left pleural effusions. No pneumothorax. Right suprahilar mass is again seen with associated atelectasis. Heart and pericardium: Heart size is normal. No pericardial effusion. Vessels: No evidence of pulmonary embolism. Mediastinum and tasha: Partial visualization of enlarged lymph nodes in the mediastinum. Chest wall and lower neck: Bilateral lymphadenopathy is again seen. Body wall edema is again seen. Abdomen: Unremarkable. Bones: Degenerative changes in the thoracic spine. IMPRESSION: 1. No evidence of pulmonary embolus. 2. Moderate right and small left pleural effusion without evidence of pneumothorax. 3. Redemonstration of large right suprahilar mass with mediastinal and axillary lymphadenopathy. ACT 112: Negative or not required by law. Electronically signed by: Glenroy Monte M.D. 09/04/2023 5:40 PM
[2023-09-04] MEDS: dexAMETHasone**PF** 10 MG/ML VIAL IV ONE (17:49)
[2023-09-04 18:00] LABS: Hematocrit (blood only) 25.1 % (37.0-47.0); Hemoglobin 7.9 g/dl (12.0-16.0); Mean Corpuscular Hemoglobin 31.6 pg (25.0-34.0); Mean Corpuscular Hgb Conc 31.5 g/dL (32.0-36.0); Mean Corpuscular Volume 100.4 fL (80.0-100.0); Mean Platelet Volume 10.8 fL (9.4-12.4); Platelet Count 29 K/uL (130-400); RDW Coefficient of Variation 17.2 % (11.5-14.5); RDW Standard Deviation 62.1 fL (36.4-46.3); White Blood Count 1.31 K/ul (4.8-10.8)
[2023-09-04 18:05] LABS: Anisocytosis Present; Macrocytosis Present; Ovalocytes 1+
[2023-09-04 18:07] LABS: Basophils # (auto) 0.01 K/uL (0.00-0.20); Basophils % (auto) 0.8 %; Eosinophils # (auto) 0.01 K/uL (0.00-0.50); Eosinophils % (auto) 0.8 %; Immature Granulocytes # (auto) 0.01 K/uL (0.01-0.20); Immature Granulocytes % (auto) 0.8 %; Lymphocytes # (auto) 0.19 K/uL (1.20-3.40); Lymphocytes % (auto) 14.5 %; Monocytes # (auto) 0.19 K/uL (0.11-0.59); Monocytes % (auto) 14.5 %; Neutrophils % (auto) 68.6 %
[2023-09-04 18:08] LABS: Albumin Globulin Ratio 1.5 (0.9-2); Albumin Level 3.2 gm/dl (3.4-5.0); BUN Creatinine Ratio 28.1 (10-20); Bilirubin,Total 0.6 mg/dl (0.2-1.0); Calcium 8.4 mg/dl (8.6-10.3); Creatinine Clr Calc Pharmacy 94.7 ml/min; Est GFR (African American) 115.2 ml/min; Est GFR (Non-African American) 99.4 ml/min; Globulin 2.2 gm/dl (2.5-4.0); Total Protein 5.4 gm/dl (6.0-8.3)
[2023-09-04 18:13] LABS: Troponin I High Sensitivity 3.3 pg/ml (0-14)
[2023-09-04 18:14] LABS: INR 1.2 (0.9-1.1); Partial Thromboplastin Time 26 Seconds (21-31); Prothrombin Time 12.6 Seconds (9.0-12.0)
--- NOTE | 2023-09-04 18:30 | Emergency Department Note ---
Impression & Plan Bilateral pleural effusion, COPD with acute exacerbation, Pancytopenia ED Provider Note Name: JOSEPH BOWEN Age: 63 Sex: Female Arrives Via: Walk-In Informant: Patient ED Provider: Ashwin Sandy MD Chief Complaint: Shortness of breath Impression: As per impressions above Medical Decision Making: Very pleasant 63-year-old female with metastatic lung CA on chemotherapy arrives for evaluation of worsening shortness of breath status post pleurocentesis a few days ago. Initially better but rapidly worsening since. Chest x-ray without pneumothorax but does show effusions. Exam is concerning for asthma/COPD exacerbation given the wheezing. Given an hour-long nebulizer did improve but became pretty anxious with this and thus some Ativan. Given her worsening symptoms a CT of the chest was obtained. There is no evidence of PE. There is a significant effusion on the right side which I suspect is contributing to much of her shortness of breath. Notes that I think the combination of COPD exacerbation, large effusion and now worsening anemia with her pancytopenia is leading to her shortness of breath. Patient is not septic and there is no clear evidence that this is infectious related. Given multiple findings and concerns for respiratory issues and some mild hypoxia hospitalization is clearly warranted. Triage/Nursing Notes reviewed by Me Differential:Reactive airway disease, pneumonia, pneumothorax, COPD, CHF, infections, cardiac ischemia, pulmonary embolism, musculoskeletal, gastrointestinal, as well as other pathologies. Vital Signs: reviewed and remarkable for tachycardia Interventions: DuoNeb 1 hour, Decadron 10 mg IV, Ativan 0.5 mg IV Labs:ED labs Reviewed by me and remarkable for pancytopenia worsening Imagin view chest x-ray as per my interpretation bilateral effusions right greater than the left. CT of the chest angiography. As per my informal interpretation. There is no large caliber PE. There is a moderate right pleural effusion and smaller left pleural effusion. Confirmed by radiologist see the report for full. EKG:As per my interpretation. Indication. Shortness of breath. Sinus tachycardia 114 bpm no ectopy no ischemia. QTc 402. When compared to EKG of April 13, 2023 there is no significant change though voltage has decreased some. Cardiac/Tele Monitoring: Cardiac Monitoring: An Order was placed for continuous cardiac monitoring. The monitor shows a rate of sinus tach with a 110 rhythm. Consults:Discussed with Dr. Palomares of the [place] hospitalist service who will further evaluate for management and hospitalization Plan: Disposition:Hospitalization. Condition: Fair History of Present Illness: 63-year-old female arrives for evaluation of shortness of breath. Patient with a history of non-small cell lung cancer and mass in the mediastinum being treated for the last 2 years. She notes she has been having worsening shortness of breath and a right pleurocentesis was done on Monday due to this. She notes initially was feeling great however over the last 48 hours worsening shortness of breath fatigue exhaustion. Feels like she cannot catch her breath at rest. She had chemotherapy about a week and a half ago but did not have her typical chemotherapy on Monday as planned due to worsening thrombocytopenia. Patient states that her shortness of breath has gotten to the point where she feels like she cannot catch it. It is associated with a junky cough as well. She denies any trauma or injuries. She denies any specific chest pain other than ongoing issues. Denies any other acute concerning findings and has not had any recent fevers or chills. Of note patient did get a platelet infusion last Monday prior to procedure. She was on Eliquis but that has been held for about a week now. Past Medical History:See Below Home Medications:See Below Allergies:naproxen Vitals:Blood Pressure: 131/82, Pulse 106, RR 24, T 36.3C, O2 91% on RA Physical Exam: GENERAL: Patient is unwell appearing and in mild distress. RESPIRATORY: Moderate dyspnea/tachypnea with prolonged expiratory phase and wheezing throughout the left lung. There is minimal lung sounds throughout most of the right lung. CARDIOVASCULAR: Mildly tachycardic.No murmur appreciated. EXTREMITIES: Normal motion all extremities, no cyanosis, no edema. NEUROLOGIC: Alert and oriented. No focal neurologic deficits appreciated SKIN: No rash, no jaundice, no diaphoresis. PSYCH: Appropriate GCS: 15 ED Course: Times/Reassessments: Stable breathing bit better but got quite anxious with nebulizer treatment Ashwin Sandy MD Past Med/Surg History Problem List (Updated 09/05/23 @ 13:15 by Ashwin Sandy MD) Pancytopenia (Acute) COPD with acute exacerbation (Acute) Bilateral pleural effusion (Acute) Squamous cell carcinoma of vulva Hypoxia Extensive stage primary small cell carcinoma of lung Malignant pleural effusion Acute respiratory failure with hypoxia Pancytopenia due to antineoplastic chemotherapy Pleural effusion Therapeutic opioid-induced constipation (OIC) Cancer related pain POLST (Physician Orders for Life-Sustaining Treatment) (Acute) Discussion initiated 05/18/23, pt will RTC one month with to complete in person with him present. She reaffirms DNR/DNI code status. 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 DVT (deep venous thrombosis) on eliquis Abnormal skin of vulva Brain metastasis (Chronic 08/17/22) Radiation esophagitis Tobacco use quit 02/02/22 Facial edema SVC syndrome (Acute) Abnormal resting ECG findings Lung mass Sinus tachycardia (Acute) Bronchitis Hyperlipemia Left renal mass To follow w/ nephrology 1.8 x 1.8 x 1.5 cm hypoechoic lesion in left kidney per 02/03/22 renal u/s Exertional dyspnea Hilar mass (Acute) Small cell lung cancer (Chronic) Dyslipidemia Medical History (Updated 09/05/23 @ 13:15 by Ashwin Sandy MD) History of COVID-19 06/2021- sore throat, fatgue- no hospitalization, no current issues Emphysema of lung Surgical History Port-A-Cath in place (02/22/22) History of ear surgery H/O tubal ligation History of colonoscopy History of breast lump/mass excision Family History Father Lung cancer, Onset Age: 70 Cancer Mother Osteoporosis Macular degeneration Brother Abdominal aortic aneurysm (AAA) Cancer of kidney Brother Pancreatic cancer, Onset Age: 50 Sister No problems noted. Sister Hypertension Grandmother (Maternal) Diabetes Congestive heart failure Family/Other Ovarian cancer Other No family history of adverse response to anesthesia No family history of bleeding disorder Denies family history of Breast cancer Colorectal cancer Social History Smoking Status: Former smoker Tobacco Type: Cigarettes Age Started Using Tobacco: 16; Age Quit Using Tobacco: 61; packs per day: 0.5; Cigarettes Per Day: 1-1.5ppd; Second Hand Exposure: No; Do You Dip or Chew Tobacco: No; Hx Alcohol Use: Yes Alcohol type: beer Alcohol Intake Frequency: 4 or More x per/Week Hx Substance Use: No Preferred Language: Citizen Of [place] Communication Ability: Effective Visual Impairment: No Limitations Hearing Ability: Normal Sfdc Developer Required: No Beliefs That Will Affect Care: None marital status: Current Living Situation: Spouse Current Living Situation Comment: lives in house with steps current occupational status: employed 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 [employer] How many Children do You have: 0 Feels Safe at Home: Yes Safety Concerns: Feels Safe At This Time Childhood Exposure to Second-Hand Smoke: Yes Diet: regular caffeine: Yes during the past year weight has: remained stable Dental Care, Regularly: No Physical Activity Frequency: Daily Seatbelt Use: sometimes Sunscreen Use: No Assistive Devices: None Allergies Allergies Allergy/AdvReac Type Severity Reaction Status Date / Time naproxen Allergy Intermediate ITCHY HIVES Verified 09/04/23 18:22 Home Meds Home Medications Medication Instructions Recorded Confirmed docusate sodium 100 mg capsule 100 mg PO BID PRN Constipation 02/22/22 09/04/23 prednisone 10 mg tablet 10 mg PO DAILY 05/16/23 09/04/23 albuterol sulfate 90 mcg/actuation 1 - 2 puff inhalation Q6H PRN 09/04/23 09/04/23 aerosol inhaler Shortness Of Breath Or Wheezing apixaban 5 mg tablet (Eliquis) 5 mg PO BID 09/04/23 09/04/23 levofloxacin 500 mg tablet 500 mg PO DAILY 09/04/23 09/04/23 Previous Rx's Medication Instructions Recorded oxycodone-acetaminophen 5 mg-325 1 tab PO .Q4hrs PRN pain #10 tabs 11/21/22 mg tablet (Percocet) silver sulfadiazine 1 % topical 1 applic topical BID PRN radiation 06/05/23 cream (Silvadene) dematitis #85 grams Results & Data (ED) Vital Signs Vital Signs - 24 hr 09/04/23 15:42 09/04/23 17:22 09/04/23 17:22 Temperature 36.3 C L Temperature Source Temporal Artery Scan Pulse Rate 120 H Pulse Rate [Apical] Pulse Rate [Finger] 107 H Pulse Rate from SpO2 Sensor Pulse Rhythm Respiratory Rate 24 24 Respiratory Effort / Characteristics Non-Labored Spontaneous Spontaneous Short of Breath Respiratory Depth Normal Respiratory Pattern Blood Pressure 119/82 Blood Pressure [Right Arm] Blood Pressure Mean 94 Blood Pressure Mean [Right Arm] Pulse Oximetry 98 91 92 Oxygen Delivery Method Room Air Room Air Room Air Oxygen Flow Rate Sepsis Recent Fever Within 48 Hours No Sepsis New/Unexplained Change in Mental Status No Sepsis Action Taken by Nursing No Action Required 09/04/23 17:22 09/04/23 17:22 09/04/23 18:37 Temperature Temperature Source Pulse Rate 106 H Pulse Rate [Apical] 106 H 114 H Pulse Rate [Finger] Pulse Rate from SpO2 Sensor Pulse Rhythm Regular Respiratory Rate 24 24 24 Respiratory Effort / Characteristics Spontaneous Labored Respiratory Depth Normal Respiratory Pattern Regular Blood Pressure Blood Pressure [Right Arm] 131/82 125/79 Blood Pressure Mean Blood Pressure Mean [Right Arm] 98 94 Pulse Oximetry 92 92 90 Oxygen Delivery Method Room Air Room Air Room Air Oxygen Flow Rate Sepsis Recent Fever Within 48 Hours Sepsis New/Unexplained Change in Mental Status Sepsis Action Taken by Nursing 09/04/23 19:00 09/04/23 19:03 09/04/23 19:27 Temperature Temperature Source Pulse Rate 110 H 111 H Pulse Rate [Apical] Pulse Rate [Finger] Pulse Rate from SpO2 Sensor 110 H 111 H Pulse Rhythm Respiratory Rate 22 28 H Respiratory Effort / Characteristics Respiratory Depth Respiratory Pattern Blood Pressure 110/75 Blood Pressure [Right Arm] Blood Pressure Mean 92 Blood Pressure Mean [Right Arm] Pulse Oximetry 94 98 Oxygen Delivery Method Nasal Cannula Nasal Cannula Oxygen Flow Rate 2 2 Sepsis Recent Fever Within 48 Hours Sepsis New/Unexplained Change in Mental Status Sepsis Action Taken by Nursing 09/04/23 19:30 09/04/23 19:30 Temperature Temperature Source Pulse Rate 109 H Pulse Rate [Apical] Pulse Rate [Finger] Pulse Rate from SpO2 Sensor Pulse Rhythm Respiratory Rate Respiratory Effort / Characteristics Respiratory Depth Respiratory Pattern Blood Pressure 117/88 Blood Pressure [Right Arm] Blood Pressure Mean 104 Blood Pressure Mean [Right Arm] Pulse Oximetry Oxygen Delivery Method Oxygen Flow Rate Sepsis Recent Fever Within 48 Hours Sepsis New/Unexplained Change in Mental Status Sepsis Action Taken by Nursing Laboratory Data 09/05/23 10:30 09/05/23 10:30 Lab Results 09/04/23 09/04/23 Range/Units 17:20 17:24 WBC 1.31 L (4.8-10.8) K/ul RBC 2.50 L (4.20-5.40) M/uL Hgb 7.9 L (12.0-16.0) g/dl Hct 25.1 L (37.0-47.0) % MCV 100.4 H (80.0-100.0) fL MCH 31.6 (25.0-34.0) pg MCHC 31.5 L (32.0-36.0) g/dL RDW Std Deviation 62.1 H (36.4-46.3) fL RDW Coeff of Sohail 17.2 H (11.5-14.5) % Plt Count 29 L* (130-400) K/uL MPV 10.8 (9.4-12.4) fL Immature Gran % (Auto) 0.8 % Neut % (Auto) 68.6 % Lymph % (Auto) 14.5 % [place] % (Auto) 14.5 % Eos % (Auto) 0.8 % Baso % (Auto) 0.8 % Neut # (Auto) 0.90 L* (1.40-6.50) K/uL Lymph # (Auto) 0.19 L (1.20-3.40) K/uL [place] # (Auto) 0.19 (0.11-0.59) K/uL Eos # (Auto) 0.01 (0.00-0.50) K/uL Baso # (Auto) 0.01 (0.00-0.20) K/uL Immature Gran # (Auto) 0.01 (0.01-0.20) K/uL Anisocytosis Present Macrocytosis Present Ovalocytes 1+ PT 12.6 H (9.0-12.0) Seconds INR 1.2 H (0.9-1.1) APTT 26 (21-31) Seconds PTT Ratio 1.0 Sodium 135 L (136-145) mmol/L Potassium 4.0 (3.5-5.1) mmol/L Chloride 102 (98-107) mmol/L Carbon Dioxide 28 (21-32) mmol/L Anion Gap 5 (3-11) BUN 16 (6-23) mg/dl Creatinine 0.57 L (0.6-1.2) mg/dl Est Cr Clr Drug Dosing 94.7 ml/min Est GFR ( Amer) 115.2 ml/min Est GFR (Non-Af Amer) 99.4 ml/min BUN/Creatinine Ratio 28.1 H (10-20) Glucose 96 (70-99(Fasting)) mg/dl Calcium 8.4 L (8.6-10.3) mg/dl Total Bilirubin 0.6 (0.2-1.0) mg/dl AST 10 L (13-39) U/L ALT 5 L (7-52) U/L Alkaline Phosphatase 44 (34-104) U/L Troponin I High Sens 3.3 (0-14) pg/ml Total Protein 5.4 L (6.0-8.3) gm/dl Albumin 3.2 L (3.4-5.0) gm/dl Globulin 2.2 L (2.5-4.0) gm/dl Albumin/Globulin Ratio 1.5 (0.9-2) Procalcitonin 0.05 (0-0.5) ng/ml Adenovirus (PCR) Not Detected (NotDetected) B. pertussis DNA (PCR) Not Detected (NotDetected) B.parapertussis DNA PCR Not Detected (NotDetected) C. pneumoniae DNA (PCR) Not Detected (NotDetected) Coronavirus OC43 (PCR) Not Detected (NotDetected) Coronavirus HKU1 (PCR) Not Detected (NotDetected) Coronavirus 229E (PCR) Not Detected (NotDetected) SARS-CoV-2 (PCR) Not Detected (NotDetected) Coronavirus NL63 (PCR) Not Detected (NotDetected) Human Metapneumovir PCR Not Detected (NotDetected) Influenza Type A (PCR) Not Detected (NotDetected) Influenza Type B (PCR) Not Detected (NotDetected) M. pneumoniae (PCR) Not Detected (NotDetected) Parainfluenza 1 (PCR) Not Detected (NotDetected) Parainfluenza 2 (PCR) Not Detected (NotDetected) Parainfluenza 3 (PCR) Not Detected (NotDetected) Parainfluenza 4 (PCR) Not Detected (NotDetected) RSV (PCR) Not Detected (NotDetected) Entero/Rhino (PCR) Not Detected (NotDetected) Administered Medications Albuterol (Albut/Ipratrop 3mg/0.5mg Neb 3 Ml Vial) 3 ml NEB Q6R LULU; Protocol Stop: 10/05/23 00:59 Last Admin: 09/05/23 08:15 Dose: 3 ml Documented By: Admin: 09/05/23 00:52 Dose: 3 ml Documented By: MARCELA Levofloxacin (Levofloxacin 750 Mg Tab) 750 mg PO DAILY@1100 LULU; Protocol Stop: 09/12/23 10:59 Last Admin: 09/05/23 11:24 Dose: 750 mg Documented By: GUS Lorazepam (Lorazepam 0.5 Mg Tab) 0.5 mg PO Q6H PRN PRN Reason: Anxiety Stop: 10/05/23 09:29 Last Admin: 09/05/23 10:35 Dose: 0.5 mg Documented By: GUS Oxycodone/Acetaminophen (Oxycodone/Acetaminophen 5mg/325mg Tab) 1 tab PO Q4H PRN PRN Reason: pain Stop: 09/18/23 22:13 Last Admin: 09/05/23 08:39 Dose: 1 tab Documented By: GUS Prednisone (Prednisone 10 Mg Tablet) 10 mg PO DAILY LULU Stop: 10/05/23 08:59 Last Admin: 09/05/23 08:34 Dose: 10 mg Documented By: GUS Discontinued Medications Albuterol (Albut/Ipratrop 3mg/0.5mg Neb 3 Ml Vial) 12 ml NEB ONE ONE; Protocol Stop: 09/04/23 16:48 Last Admin: 09/04/23 17:18 Dose: 12 ml Documented By: TERELL Dexamethasone Sodium Phosphate (DexamethasonePf 10 Mg/Ml Vial) 10 mg IV NOW ONE Stop: 09/04/23 17:48 Last Admin: 09/04/23 17:49 Dose: 10 mg Documented By: YESSI Ioversol (Optiray 320 125ml) 117 ml IV ONCE ONE Stop: 09/04/23 17:15 Last Admin: 09/04/23 17:15 Dose: 117 ml Documented By: FÉLIX Lorazepam (Lorazepam 1 Mg/1 Ml Syr Ed Inj Use) 0.5 mg IV ONE STA Stop: 09/04/23 18:25 Last Admin: 09/04/23 18:31 Dose: 0.5 mg Documented By: YESSI Lorazepam (Lorazepam 1 Mg/1 Ml Syr Ed Inj Use) 0.5 mg IV ONE STA Stop: 09/05/23 03:18 Last Admin: 09/05/23 03:38 Dose: 0.5 mg Documented By: MARCELA Imaging Data Radiologist's Impression: Chest CTA 09/04/23 15:44 CT angio chest PE protocol CLINICAL HISTORY: Dyspnea TECHNIQUE: Multidetector row helical CT of the chest was performed with angiographic protocol. Coronal and sagittal reformations were obtained. Coronal and sagittal MIPS were obtained from the axial data set and were submitted for review. Automated dose lowering techniques and/or adjustment according to patient size were utilized for this exam. CT DOSE: 886.81 mGy.cm Comparison: Comparison is made to CT chest 08/30/2023 FINDINGS: Lungs and pleura: Moderate right and small left pleural effusions. No pneumothorax. Right suprahilar mass is again seen with associated atelectasis. Heart and pericardium: Heart size is normal. No pericardial effusion. Vessels: No evidence of pulmonary embolism. Mediastinum and tsaha: Partial visualization of enlarged lymph nodes in the mediastinum. Chest wall and lower neck: Bilateral lymphadenopathy is again seen. Body wall edema is again seen. Abdomen: Unremarkable. Bones: Degenerative changes in the thoracic spine. IMPRESSION: 1. No evidence of pulmonary embolus. 2. Moderate right and small left pleural effusion without evidence of pneumothorax. 3. Redemonstration of large right suprahilar mass with mediastinal and axillary lymphadenopathy. ACT 112: Negative or not required by law. Electronically signed by: Glenroy Monte M.D. 09/04/2023 5:40 PM Chest X-Ray 09/04/23 15:47 XR chest 1V not portable CLINICAL HISTORY: SOB s/p thoracentesis TECHNIQUE: Single frontal radiograph of the chest was obtained. Comparison: Comparison is made to chest radiograph 09/01/2023 FINDINGS: Lines and tubes are stable. The cardiomediastinal silhouette is stable. Right suprahilar mass is again seen. Redemonstration of small bilateral pleural effusions. No pneumothorax. IMPRESSION: No pneumothorax is seen. Stable right suprahilar mass and bilateral pleural effusions. ACT 112: Negative or not required by law. Electronically signed by: Glenroy Monte M.D. 09/04/2023 4:18 PM Discharge Plan Visit Data Chief Complaint: Shortness of Breath/Dyspnea Stated Complaint: SOB ED Provider: Ashwin Sandy Discharge Problem: Bilateral pleural effusion, COPD with acute exacerbation, Pancytopenia Discharge Instructions Interventions: ED Discharge Assessment Last Done: 09/04/23 22:14
[2023-09-04] MEDS: LORazepam 1 MG/1 ML SYR ED Inj Use IV STA (18:31)
[2023-09-04 18:40] LABS: Adenovirus PCR Not Detected (NotDetected); Bordetella parapertussis PCR Not Detected (NotDetected); Bordetella pertussis PCR Not Detected (NotDetected); Chlamydia pneumoniae PCR Not Detected (NotDetected); Coronavirus 229E PCR Not Detected (NotDetected); Coronavirus CoV-2 (COVID19)PCR Not Detected (NotDetected); Coronavirus HKU1 PCR Not Detected (NotDetected); Coronavirus NL63 PCR Not Detected (NotDetected); Coronavirus OC43PCR Not Detected (NotDetected); Human Metapneumovirus PCR Not Detected (NotDetected); Influenza A PCR Not Detected (NotDetected); Influenza B PCR Not Detected (NotDetected); Mycoplasma pneumoniae PCR Not Detected (NotDetected); Parainfluenza Virus 1 PCR Not Detected (NotDetected); Parainfluenza Virus 2 PCR Not Detected (NotDetected); Parainfluenza Virus 3 PCR Not Detected (NotDetected); Parainfluenza Virus 4 PCR Not Detected (NotDetected); Respiratory Syncytial VirusPCR Not Detected (NotDetected); Rhinovirus/Enterovirus PCR Not Detected (NotDetected)
--- NOTE | 2023-09-04 19:23 | History & Physical Report ---
Date of Service September 04, 2023 Assessment & Plan (1) Pancytopenia due to antineoplastic chemotherapy: (2) Pleural effusion: (3) Therapeutic opioid-induced constipation (OIC): (4) Palliative care by specialist: (5) Dyspnea and respiratory abnormalities: (6) Acute respiratory failure with hypoxia: (7) Small cell lung cancer: (8) SVC syndrome: (9) Cancer related pain: Plan Patient is a 63 yo F w/ a PMHx of small cell lung cancer (mets to the brain, s/p chemotherapy and radiation therapy, w/ Port-a-Cath), Hx of vulvar cancer, Hx of DVT, radiation esophagitis, tobacco use, Hx of SVC syndrome, and left renal mass presents today for continued SOB at rest/exertion, tachypnea, tachycardia, and an increasingly productive cough. 1) Acute resp failure w/ hypoxia/reactive airway disease/ - CXR --> showing stable r. suprahilar mass and small bilateral pleural effusions - CTA --> no evidence of a PE - Pulmonology consulted - procalcitonin ordered, consider blood cultures if pt's procal is elevated 2) Pancytopenia - consult Oncology, consider Neupogen 2a) Thrombocytopenia - Plts, 29 - hold Eliquis, trend CBC daily 2b) Leukopenia (and Neutropenia) - WBC, 1.31 (ANC, 0.9) - neutrophilic isolation precautions - last chemotherapy dose on 08/17/23 2c) Anemia - Hgb, 7.9 - order Type and Cross - trend CBC daily 3) Pleural effusion/ NSCLC (w/ brain metastases, s/p chemotherapy, radiation therapy) - pt w/ SCLC (w/ mets to brain) Dx'ed in Jan, 2022 - recent thoracentesis on 09/04/23 w/ 1-day improvement of symptoms - patient on palliative care - Consult Pulmonology 4) Hx of DVT - pt w/ current cancer and low platelets - hold apixaban 5) opioid-induced constipation - continue opioids for pain and docusate for chronic constipation - consider Miralax if pt develops acute constipation Code status: Full code Disposition: PCU DVT Prophylaxis: SCD's (to knee) FENGI: Regular diet History of Present Illness Primary Care Provider: JOYCELYN Huerta Patient is a 63 yo F w/ a PMHx of small cell lung cancer (mets to the brain, s/p chemotherapy and radiation therapy, w/ Port-a-Cath), Hx of vulvar cancer, Hx of DVT, radiation esophagitis, tobacco use, Hx of SVC syndrome, and left renal mass presents today for continued SOB at rest/exertion, tachypnea, tachycardia, and an increasingly productive cough. Patient denies fevers, chills, any chest pain w/ inspiration (pleuritic chest pain). Patient last in [facility] ED on 09/01/2023, at which time platelets were also low at , patient received 1 unit of platelets, and also had a thoracentesis performed. Patient's SCLC diagnosed in Jan 2022, with her metastases noted in . Allergies Allergy/AdvReac Type Severity Reaction Status Date / Time naproxen Allergy Intermediate ITCHY HIVES Verified 09/04/23 18:22 Home Medications Medication Instructions Recorded Confirmed Type docusate sodium 100 mg capsule 100 mg PO BID PRN Constipation 02/22/22 09/04/23 History oxycodone-acetaminophen 5 mg-325 1 tab PO .Q4hrs PRN pain #10 tabs 11/21/22 09/04/23 Rx mg tablet (Percocet) prednisone 10 mg tablet 10 mg PO DAILY 05/16/23 09/04/23 History silver sulfadiazine 1 % topical 1 applic topical BID PRN radiation 06/05/23 09/04/23 Rx cream (Silvadene) dematitis #85 grams albuterol sulfate 90 mcg/actuation 1 - 2 puff inhalation Q6H PRN 09/04/23 09/04/23 History aerosol inhaler Shortness Of Breath Or Wheezing apixaban 5 mg tablet (Eliquis) 5 mg PO BID 09/04/23 09/04/23 History levofloxacin 500 mg tablet 500 mg PO DAILY 09/04/23 09/04/23 History Past Med/Surg History Problem List (Updated 09/05/23 @ 07:09 by Nathan Palomares MD) Acute respiratory failure with hypoxia Pancytopenia due to antineoplastic chemotherapy Pleural effusion Therapeutic opioid-induced constipation (OIC) Cancer related pain POLST (Physician Orders for Life-Sustaining Treatment) (Acute) Discussion initiated 05/18/23, pt will RTC one month with to complete in person with him present. She reaffirms DNR/DNI code status. 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 DVT (deep venous thrombosis) on eliquis Abnormal skin of vulva Brain metastasis (Chronic 08/17/22) Radiation esophagitis Tobacco use quit 02/02/22 Facial edema SVC syndrome (Acute) Abnormal resting ECG findings Lung mass Sinus tachycardia (Acute) Bronchitis Hyperlipemia Left renal mass To follow w/ nephrology 1.8 x 1.8 x 1.5 cm hypoechoic lesion in left kidney per 02/03/22 renal u/s Exertional dyspnea Hilar mass (Acute) Small cell lung cancer (Chronic) Dyslipidemia Medical History (Updated 09/05/23 @ 07:09 by Nathan Palomares MD) History of COVID-19 06/2021- sore throat, fatgue- no hospitalization, no current issues Emphysema of lung Surgical History Port-A-Cath in place (02/22/22) History of ear surgery H/O tubal ligation History of colonoscopy History of breast lump/mass excision Family History Father Lung cancer, Onset Age: 70 Cancer Mother Osteoporosis Macular degeneration Brother Abdominal aortic aneurysm (AAA) Cancer of kidney Brother Pancreatic cancer, Onset Age: 50 Sister No problems noted. Sister Hypertension Grandmother (Maternal) Diabetes Congestive heart failure Family/Other Ovarian cancer Other No family history of adverse response to anesthesia No family history of bleeding disorder Denies family history of Breast cancer Colorectal cancer Social History Smoking Status: Former smoker Tobacco Type: Cigarettes Age Started Using Tobacco: 16; Age Quit Using Tobacco: 61; packs per day: 0.5; Cigarettes Per Day: 1-1.5ppd; Second Hand Exposure: No; Do You Dip or Chew Tobacco: No; Hx Alcohol Use: Yes Alcohol type: beer Alcohol Intake Frequency: 4 or More x per/Week Hx Substance Use: No Preferred Language: Sami Communication Ability: Effective Visual Impairment: No Limitations Hearing Ability: Normal Burlap Roll Coverer Required: No Beliefs That Will Affect Care: None marital status: Current Living Situation: Spouse Current Living Situation Comment: lives in house with steps current occupational status: employed 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 [employer] How many Children do You have: 0 Feels Safe at Home: Yes Safety Concerns: Feels Safe At This Time Childhood Exposure to Second-Hand Smoke: Yes Diet: regular caffeine: Yes during the past year weight has: remained stable Dental Care, Regularly: No Physical Activity Frequency: Daily Seatbelt Use: sometimes Sunscreen Use: No Assistive Devices: Glasses Review of Systems Constitutional: + fatigue and + weight loss; no fever an d no chills Eyes: no eye pain and no worsening vision Ear, Nose, Mouth, Throat: no nasal congestion, no nasal discharge and no sinus pain/pressure Respiratory: + cough, + dyspnea on exertion and + hem optysis; no pain with cough Cardiovascular: + dyspnea on exertion; no chest pain and no palpitations Gastrointestinal: + nausea; no vomiting, no change in adwoa l habits and no diarrhea/loose stools Genitourinary: no dysuria, no urinary hesitancy and no hematuria Neurologic: + tingling and + numbness (chronic tingl ing in toes) Hematologic / Lymphatic: + easy bruising; no easy bleeding Physical Exam Constitutional: cooperative and + in distress Respiratory: + respiratory distress, + labored breath ing, + uses accessory muscles, + cough and able to speak in complete sentences Auscultation: + wheezes (expiratory bilaterally) Cardiovascular: RRR, no murmur, no edema Extremities: normal capillary refill; no calf tenderness and no pedal edema Gastrointestinal (Abdomen): normal bowel sounds, soft, nontender, no hepatosplenomegaly Psychiatric: A+Ox3, euthymic affect Results & Data Results & Data Vital Signs (Past 12 Hours) Vital Signs Temp Pulse Pulse Pulse Resp BP BP 09/04/23 18:37 114 H 24 125/79 09/04/23 17:22 106 H 24 09/04/23 17:22 106 H 24 131/82 09/04/23 17:22 09/04/23 17:22 107 H 24 09/04/23 15:42 36.3 C L 120 H 24 119/82 Pulse Ox O2 Del Method 09/04/23 18:37 90 Room Air 09/04/23 17:22 92 Room Air 09/04/23 17:22 92 Room Air 09/04/23 17:22 92 Room Air 09/04/23 17:22 91 Room Air 09/04/23 15:42 98 Room Air Laboratory Results Abnormal lab results 09/04/23 09/04/23 09/04/23 Range/Units 17:24 20:40 21:23 WBC 1.31 L (4.8-10.8) K/ul RBC 2.50 L (4.20-5.40) M/uL Hgb 7.9 L (12.0-16.0) g/dl Hct 25.1 L (37.0-47.0) % MCV 100.4 H (80.0-100.0) fL MCHC 31.5 L (32.0-36.0) g/dL RDW Std Deviation 62.1 H (36.4-46.3) fL RDW Coeff of Sohail 17.2 H (11.5-14.5) % Plt Count 29 L* (130-400) K/uL Neut # (Auto) 0.90 L* (1.40-6.50) K/uL Lymph # (Auto) 0.19 L (1.20-3.40) K/uL PT 12.6 H (9.0-12.0) Seconds INR 1.2 H (0.9-1.1) Sodium 135 L (136-145) mmol/L Creatinine 0.57 L (0.6-1.2) mg/dl BUN/Creatinine Ratio 28.1 H (10-20) Calcium 8.4 L (8.6-10.3) mg/dl AST 10 L (13-39) U/L ALT 5 L (7-52) U/L Total Protein 5.4 L (6.0-8.3) gm/dl Albumin 3.2 L (3.4-5.0) gm/dl Globulin 2.2 L (2.5-4.0) gm/dl Ur Specific [place] > 1.045 H (1.000-1.030) Urine Ketones 1+ H (Negative) Crossmatch See Detail Supervising Physician Co-Signing Physician Notes I personally saw and examined the patient. I independently reviewed the labs, EKG, imaging, problem list, medication list, past medical history and family history. I verified all morales points and agree with resident physician Dr Darian Palacios, with the following exceptions and/or additions: 63 year old female with metastatic small cell lung cancer presents to the ER with worsening shortness of breath since thoracentesis just 3 days previously. She reports initial improvement with her shortness of breath but slowly progressively getting worse over that time without chest pain or worsening cough. O/E Frail appearing, respiratory distress with accessory muscle use and labored breathing, expiratory wheezing throughout, decreased breath sound right base, prominent SVC vessels and elevated JVD, HS increased rate, regular rhythm, no murmurs, Abdo SNT, no pedal edema A/P Acute respiratory failure with hypoxia - unclear exact etiology why she is acutely worse over the last three days but clearly she has a large pleural eff usion on the right side again therefore will consult pulmonology to discuss repeat thoracentesis vs. pleurx. Anemia may be contributing but would wait for pulmonology evaluation prior to transfusion unless Hgb < 7. Wheezing on exam - dexamethasone given in the ER and improvement with duonebs therefore will continue on Solu-medrol 40mg IV daily and duonebs Pancytopenia due to chemotherapy - consult oncology. Transfuse for Hgb < 7 (consider higher threshold of 9 if continuing symptoms), Plt < 15. Neutropenic precautions. Metastatic small cell lung cancer - previously DNR/DNI however today she wishes to be for full resuscitation as she feels she does not have a prognosis for her cancer. Will consult palliative and oncology to discuss this further with her as she appears adamant she wishes to have CPR at this stage despite what I would assume to be a very poor prognosis with SVC syndrome.
[2023-09-04] MEDS ORDERED: SODIUM CHLORIDE 0.9% 250 ML IV PRN (21:05)
[2023-09-04 21:53] LABS: Appearance Urine Clear (Clear); Bilirubin Urine Negative (Negative); Blood Urine Negative (Negative); Color Urine Yellow; Glucose Urine UA Negative (Negative); Ketones Urine 1+ (Negative); Leukocyte Esterase Urine Negative (Negative); Nitrite Urine Negative (Negative); Protein Urine Negative (Negative); Specific Gravity Urine > 1.045 (1.000-1.030); Urobilinogen Urine Negative (Negative)
[2023-09-04] MEDS ORDERED: ONDANSETRON INJ 2 MG/ML 2 ML VIAL IV PRN (22:14)
[2023-09-04] MEDS ORDERED: DOCUSATE SODIUM 100 MG CAP PO PRN (22:14)
[2023-09-04] MEDS ORDERED: ACETAMINOPHEN 325 MG TAB PO PRN (22:14)
[2023-09-04] MEDS ORDERED: SILVER SULFADIAZINE 1% CR 50 GM JAR TOP PRN (22:14)
[2023-09-05] MEDS: ALBUT/IPRATROP 3MG/0.5MG NEB 3 ML VIAL NEB SCH (00:52)
[2023-09-05] MEDS: LORazepam 1 MG/1 ML SYR ED Inj Use IV STA (03:38)
--- NOTE | 2023-09-05 06:26 | Electrocardiogram Report ---
Test Reason : Blood Pressure : / mmHG Vent. Rate : 114 BPM Atrial Rate : 114 BPM P-R Int : 122 ms QRS Dur : 056 ms QT Int : 292 ms P-R-T Axes : 052 087 085 degrees QTc Int : 402 ms Sinus tachycardia Low voltage QRS Septal infarct (cited on or before Nonspecific T wave abnormality Abnormal ECG When compared with ECG of 13-APR-2023 12:00, QRS voltage has decreased Questionable change in initial forces of Septal leads Confirmed by Zan Lema ([id number]) on 09/05/2023 6:26:22 AM Referred By: Confirmed By:Zan Lema
--- NOTE | 2023-09-05 07:30 | Billing Data ---
Date of Service September 04, 2023 Coding Level of Care Code 04042 INT INP/OBS CARE
[2023-09-05] MEDS: predniSONE 10 MG TABLET PO SCH (08:34)
[2023-09-05] MEDS: oxyCODONE/ACETAMINOPHEN 5mg/325mg TAB PO PRN (08:39)
--- NOTE | 2023-09-05 09:13 | Oncology Consultation ---
Date of Consultation September 05, 2023 Assessment & Plan (1) Extensive stage primary small cell carcinoma of lung: (2) Bilateral pleural effusion: (3) Pancytopenia: Plan -Today, myself and Lovely Claros of palliative care met with patient and her family. 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 Explained to patient that her most recent scan continu es to show significant tumor burden indicating lack of response to topotecan. Her most recent CT abdomen and pelvis from last month also showed progression of squamous cell carcinoma of the vulva. Based on this, prognosis is very poor. Explained to her that given current clinical condition as well as lack of good treatment options after third line topotecan recommend she consider supportive care/hospice. She seemed agreeable to this approach. She plans to meet with palliative care again tomorrow to discuss potentially transitioning to home hospice. -Pancytopenia due to chemotherapy and appears to be improving. Continue to monitor. Thank you for this consult. Oncology will continue following patient while she is in the hospital. Please feel free to call if you have any further questions. History of Present Illness Reason for Consultation: Small cell lung cancer Attending Physician: Nathan Solorzano MD History of Present Illness 63-year-old female with history of extensive stage small cell lung cancer for which she has received multiple lines of treatment and was most recently started on IV topotecan on 08/17/2023. 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 She presented to the ED with worsening shortness of breath. Labs obtained in the ED revealed leukopenia with white cell count of 1.3 and ANC of 900, anemia with hemoglobin of 7.9 and hematocrit of 25.1 and thrombocytopenia platelet count of 29,000. CT chest on 09/04/2023 revealed redemonstration of large right suprahilar mass with mediastinal and axillary lymphadenopathy, moderate right and small left pleural effusion without evidence of pneumothorax. She states that she feels a little bit better with nebulizer treatments. Still complains of shortness of breath. Allergies Allergy/AdvReac Type Severity Reaction Status Date / Time naproxen Allergy Intermediate ITCHY HIVES Verified 09/04/23 18:22 Home Medications Medication Instructions Recorded Confirmed Type docusate sodium 100 mg capsule 100 mg PO BID PRN Constipation 02/22/22 09/04/23 History oxycodone-acetaminophen 5 mg-325 1 tab PO .Q4hrs PRN pain #10 tabs 11/21/22 09/04/23 Rx mg tablet (Percocet) prednisone 10 mg tablet 10 mg PO DAILY 05/16/23 09/04/23 History silver sulfadiazine 1 % topical 1 applic topical BID PRN radiation 06/05/23 09/04/23 Rx cream (Silvadene) dematitis #85 grams albuterol sulfate 90 mcg/actuation 1 - 2 puff inhalation Q6H PRN 09/04/23 09/04/23 History aerosol inhaler Shortness Of Breath Or Wheezing apixaban 5 mg tablet (Eliquis) 5 mg PO BID 09/04/23 09/04/23 History levofloxacin 500 mg tablet 500 mg PO DAILY 09/04/23 09/04/23 History Patient History Medical History (Updated 09/05/23 @ 13:15 by Ashwin Sandy MD) History of COVID-19 06/2021- sore throat, fatgue- no hospitalization, no current issues Emphysema of lung Surgical History Port-A-Cath in place (02/22/22) History of ear surgery H/O tubal ligation History of colonoscopy History of breast lump/mass excision Family History Father Lung cancer, Onset Age: 70 Cancer Mother Osteoporosis Macular degeneration Brother Abdominal aortic aneurysm (AAA) Cancer of kidney Brother Pancreatic cancer, Onset Age: 50 Sister No problems noted. Sister Hypertension Grandmother (Maternal) Diabetes Congestive heart failure Family/Other Ovarian cancer Other No family history of adverse response to anesthesia No family history of bleeding disorder Denies family history of Breast cancer Colorectal cancer Social History Smoking Status: Former smoker Tobacco Type: Cigarettes Age Started Using Tobacco: 16; Age Quit Using Tobacco: 61; packs per day: 0.5; Cigarettes Per Day: 1-1.5ppd; Second Hand Exposure: No; Do You Dip or Chew Tobacco: No; Hx Alcohol Use: Yes Alcohol type: beer Alcohol Intake Frequency: 4 or More x per/Week Hx Substance Use: No Preferred Language: French Communication Ability: Effective Visual Impairment: No Limitations Hearing Ability: Normal Bone Tender Required: No Beliefs That Will Affect Care: None marital status: Current Living Situation: Spouse Current Living Situation Comment: lives in house with steps current occupational status: employed 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 [employer] How many Children do You have: 0 Feels Safe at Home: Yes Childhood Exposure to Second-Hand Smoke: Yes Diet: regular caffeine: Yes during the past year weight has: remained stable Dental Care, Regularly: No Physical Activity Frequency: Daily Seatbelt Use: sometimes Sunscreen Use: No Assistive Devices: None Results & Data Vital Signs (Past 12 Hours) Vital Signs Pulse Pulse Pulse Resp BP BP Pulse Ox 09/05/23 08:18 98 H 19 98 09/05/23 08:00 100 H 22 132/89 96 09/05/23 07:07 89 09/05/23 06:03 99 H 18 96 09/05/23 05:09 92 H 12 09/05/23 04:21 09/05/23 04:21 23 94 09/05/23 04:00 99 H 17 09/05/23 04:00 103/70 09/05/23 04:00 103/70 09/05/23 03:30 101 H 18 97 09/05/23 03:30 104/75 09/05/23 03:30 104/75 09/05/23 03:30 104/75 09/05/23 03:27 109 H 19 97 09/05/23 02:30 127/84 09/05/23 02:21 97 H 17 09/05/23 02:00 97 H 16 09/05/23 02:00 122/73 09/05/23 01:31 109/85 09/05/23 01:21 103 H 20 09/05/23 01:09 105 H 17 93 09/05/23 01:00 130/88 09/05/23 01:00 130/88 09/05/23 01:00 130/88 09/05/23 00:54 98 H 22 96 09/05/23 00:00 100 H 22 95/67 L 94 09/04/23 23:30 93 H 18 102/63 93 09/04/23 23:00 09/04/23 22:57 88 09/04/23 22:03 98 H 16 105/66 98 09/04/23 21:30 105 H 22 136/87 97 09/04/23 21:15 102 H 25 H 96 Pulse Ox O2 Del Method O2 Del Method O2 Flow Rate O2 Flow Rate 09/05/23 08:18 Nasal Cannula 2 09/05/23 08:00 Nasal Cannula 2 09/05/23 07:07 09/05/23 06:03 Nasal Cannula 2 09/05/23 05:09 09/05/23 04:21 Nasal Cannula 2 09/05/23 04:21 Nasal Cannula 2 09/05/23 04:00 09/05/23 04:00 09/05/23 04:00 09/05/23 03:30 09/05/23 03:30 09/05/23 03:30 09/05/23 03:30 09/05/23 03:27 09/05/23 02:30 09/05/23 02:21 09/05/23 02:00 09/05/23 02:00 09/05/23 01:31 09/05/23 01:21 09/05/23 01:09 09/05/23 01:00 09/05/23 01:00 09/05/23 01:00 09/05/23 00:54 09/05/23 00:00 Nasal Cannula 2 09/04/23 23:30 Nasal Cannula 2 09/04/23 23:00 94 Nasal Cannula 2 09/04/23 22:57 09/04/23 22:03 Nasal Cannula 2 09/04/23 21:30 Nasal Cannula 2 09/04/23 21:15 Nasal Cannula 2
--- NOTE | 2023-09-05 10:15 | Palliative Care Consultation ---
Date of Consultation September 05, 2023 Assessment & Plan (1) Dyspnea and respiratory abnormalities: prn percocet is helping low dose MS IV prn ordered (2) Cancer related pain: (3) Therapeutic opioid-induced constipation (OIC): bowel regimen ordered (4) Advanced care planning/counseling discussion: 45min face to face ACP held with pt, , sisters x3 along with Dr Barr/Oncology at bedside Discussed overall progression of chest mass and pelvic mass which has not been able to be treated due to her SVC Pt and family updated that her case was presented at cancer committee today, there are no further cancer directed options available. CLinical trial options may exist at [facility] centers but she would have to travel there for evaluation and treatment, it is unclear if that would be safe for her to do at this junction. She was understandably distressed and her family was extremely supportive, Dr Barr noted pt has persevered through several lines of treatment over the past 2 years and has made every effort to keep working and be present in the lives of her family even thru her illness. Her family was very supportive of her, noting that she has always "done the most" for all of them and her love of family is boundless. She expressed sorry for the likely short time she may have left with them and nanette expressed worry for leaving her behind. Sisters asked what options there are if no cancer tx is planned. We spoke about hospice and pt was clear she wants to be home and would accept hospice in that setting.Family very open to being part of her care and started discussing scheduling their times to be at her home to help. One sister offered for pt to come stay at her home in [place] but pt and would like to try and remain in their [place] home for now. The hospice benefit was discussed. Jessica does not have medicare. The extent /coverage limits for hospice under their current commercial plan will need more investigation, she is aware care t will help elucidate these details. We agreed to a follow up family meeting 0945 tomorrow morning. Will plan to initiate code discussion tomorrow. (5) Palliative care by specialist: (6) POLST (Physician Orders for Life-Sustaining Treatment): Discussed briefly at May 2023 OP Clinic visit She declined POLST completion at that time (7) SVC syndrome: (8) Small cell lung cancer: Plan as above Thank you for allowing us to participate in the ongoing care of this patient. Please page with any additional concerns. Radha Gonzalez [facility] Director, Palliative Medicine History of Present Illness Reason for Consultation: GO Attending Physician: Nathan Solorzano MD History of Present Illness Lovely Pathak (Patty) is a 63yo female with small cell lung carcinoma treated with chemotherapy and radiation therapy (6000 cGy, 30 fractions, 04/18/2022). Admitted via ED 09/03 with c/o SOB at rest/exertion, tachypnea, tachycardia, and an increasingly productive cough. 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 During that visit, ACP discussion was initiated and a follow up with her was scheduled, however patient was a no show for the return visit and did not reschedule. She has known metastatic disease to the brain and was treated with fractionated stereotactic radiosurgery (2700 cGy, 3 fractions, 09/12/2022). Jessica remains on chemo with Dr. Barr. The patient does have SVC syndrome which is currently stable and being treated with systemic therapy now on Lurbinectedin/Zepzelca. was previously on carboplatin, etoposide and ateloziumab. Last fall she was found to have an unresectable locally advanced vulvar cancer. The patient was evaluated by Dr. Arce from gynecology oncology who advised against any surgical resection. Dr. Arce recommended palliative radiation therapy, she saw Dr Feliciano and Rey Carrillo PA-C and had palliative radiation therapy for vulvar cancer (plan for 10 fractions.) Jessica's SVC syndrome is fairly pronounced with significant face/neck swelling, distended neck veins, cough, dyspnea, orthopnea, upper extremity swelling, swelling of her arms and upper torso, distended chest vein collaterals. 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 She is seen at bedside with her , Angelo, and three sisters. Allergies Allergy/AdvReac Type Severity Reaction Status Date / Time naproxen Allergy Intermediate ITCHY HIVES Verified 09/04/23 18:22 Home Medications Medication Instructions Recorded Confirmed Type docusate sodium 100 mg capsule 100 mg PO BID PRN Constipation 02/22/22 09/04/23 History oxycodone-acetaminophen 5 mg-325 1 tab PO .Q4hrs PRN pain #10 tabs 11/21/22 09/04/23 Rx mg tablet (Percocet) prednisone 10 mg tablet 10 mg PO DAILY 05/16/23 09/04/23 History silver sulfadiazine 1 % topical 1 applic topical BID PRN radiation 06/05/23 09/04/23 Rx cream (Silvadene) dematitis #85 grams albuterol sulfate 90 mcg/actuation 1 - 2 puff inhalation Q6H PRN 09/04/23 09/04/23 History aerosol inhaler Shortness Of Breath Or Wheezing apixaban 5 mg tablet (Eliquis) 5 mg PO BID 09/04/23 09/04/23 History levofloxacin 500 mg tablet 500 mg PO DAILY 09/04/23 09/04/23 History Patient History Medical History (Updated 09/05/23 @ 19:00 by Nathan Solorzano MD) History of COVID-19 06/2021- sore throat, fatgue- no hospitalization, no current issues Emphysema of lung Surgical History Port-A-Cath in place (02/22/22) History of ear surgery H/O tubal ligation History of colonoscopy History of breast lump/mass excision Family History Father Lung cancer, Onset Age: 70 Cancer Mother Osteoporosis Macular degeneration Brother Abdominal aortic aneurysm (AAA) Cancer of kidney Brother Pancreatic cancer, Onset Age: 50 Sister No problems noted. Sister Hypertension Grandmother (Maternal) Diabetes Congestive heart failure Family/Other Ovarian cancer Other No family history of adverse response to anesthesia No family history of bleeding disorder Denies family history of Breast cancer Colorectal cancer Social History Smoking Status: Former smoker Tobacco Type: Cigarettes Age Started Using Tobacco: 16; Age Quit Using Tobacco: 61; packs per day: 0.5; Cigarettes Per Day: 1-1.5ppd; Second Hand Exposure: No; Do You Dip or Chew Tobacco: No; Hx Alcohol Use: Yes Alcohol type: beer Alcohol Intake Frequency: 4 or More x per/Week Hx Substance Use: No Preferred Language: Icelandic Communication Ability: Effective Visual Impairment: No Limitations Hearing Ability: Normal Grader Green Meat Required: No Beliefs That Will Affect Care: None marital status: Current Living Situation: Spouse Current Living Situation Comment: lives in house with steps current occupational status: employed 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 [employer] How many Children do You have: 0 Feels Safe at Home: Yes Childhood Exposure to Second-Hand Smoke: Yes Diet: regular caffeine: Yes during the past year weight has: remained stable Dental Care, Regularly: No Physical Activity Frequency: Daily Seatbelt Use: sometimes Sunscreen Use: No Assistive Devices: None Review of Systems Review of Systems: All systems reviewed & are unremarkable except as noted in Subjective Physical Exam Physical Exam: deferred, pt eating late lunch with family [id number] inc resp effort higher pitched vocal quality chest wall vessels are prominent chest wall edema/breast edema prominent Results & Data Vital Signs (Past 12 Hours) Vital Signs Pulse Pulse Pulse Resp BP BP Pulse Ox 09/05/23 08:18 98 H 19 98 09/05/23 08:00 100 H 22 132/89 96 09/05/23 07:07 89 09/05/23 06:03 99 H 18 96 09/05/23 05:09 92 H 12 09/05/23 04:21 09/05/23 04:21 23 94 09/05/23 04:00 99 H 17 09/05/23 04:00 103/70 09/05/23 04:00 103/70 09/05/23 03:30 101 H 18 97 09/05/23 03:30 104/75 09/05/23 03:30 104/75 09/05/23 03:30 104/75 09/05/23 03:27 109 H 19 97 09/05/23 02:30 127/84 09/05/23 02:21 97 H 17 09/05/23 02:00 97 H 16 09/05/23 02:00 122/73 09/05/23 01:31 109/85 09/05/23 01:21 103 H 20 09/05/23 01:09 105 H 17 93 09/05/23 01:00 130/88 09/05/23 01:00 130/88 09/05/23 01:00 130/88 09/05/23 00:54 98 H 22 96 09/05/23 00:00 100 H 22 95/67 L 94 09/04/23 23:30 93 H 18 102/63 93 09/04/23 23:00 09/04/23 22:57 88 Pulse Ox O2 Del Method O2 Del Method O2 Flow Rate O2 Flow Rate 09/05/23 08:18 Nasal Cannula 2 09/05/23 08:00 Nasal Cannula 2 09/05/23 07:07 09/05/23 06:03 Nasal Cannula 2 09/05/23 05:09 09/05/23 04:21 Nasal Cannula 2 09/05/23 04:21 Nasal Cannula 2 09/05/23 04:00 09/05/23 04:00 09/05/23 04:00 09/05/23 03:30 09/05/23 03:30 09/05/23 03:30 09/05/23 03:30 09/05/23 03:27 09/05/23 02:30 09/05/23 02:21 09/05/23 02:00 09/05/23 02:00 09/05/23 01:31 09/05/23 01:21 09/05/23 01:09 09/05/23 01:00 09/05/23 01:00 09/05/23 01:00 09/05/23 00:54 09/05/23 00:00 Nasal Cannula 2 09/04/23 23:30 Nasal Cannula 2 09/04/23 23:00 94 Nasal Cannula 2 09/04/23 22:57 Laboratory Results 09/05/23 09/04/23 09/04/23 Range/Units 10:30 21:23 20:40 WBC 1.73 L (4.8-10.8) K/ul RBC 2.84 L (4.20-5.40) M/uL Hgb 8.9 L (12.0-16.0) g/dl Hct 27.7 L (37.0-47.0) % MCV 97.5 (80.0-100.0) fL MCH 31.3 (25.0-34.0) pg MCHC 32.1 (32.0-36.0) g/dL RDW Std Deviation 61.1 H (36.4-46.3) fL RDW Coeff of Sohail 17.6 H (11.5-14.5) % Plt Count 43 L (130-400) K/uL MPV 11.0 (9.4-12.4) fL Immature Gran % (Auto) 0.6 % Neut % (Auto) 82.0 % Lymph % (Auto) 6.4 % [place] % (Auto) 11.0 % Eos % (Auto) 0.0 % Baso % (Auto) 0.0 % Neut # (Auto) 1.42 (1.40-6.50) K/uL Lymph # (Auto) 0.11 L (1.20-3.40) K/uL [place] # (Auto) 0.19 (0.11-0.59) K/uL Eos # (Auto) 0.00 (0.00-0.50) K/uL Baso # (Auto) 0.00 (0.00-0.20) K/uL Immature Gran # (Auto) 0.01 (0.01-0.20) K/uL Anisocytosis Macrocytosis Ovalocytes PT (9.0-12.0) Seconds INR (0.9-1.1) APTT (21-31) Seconds PTT Ratio Sodium 137 (136-145) mmol/L Potassium 4.0 (3.5-5.1) mmol/L Chloride 102 (98-107) mmol/L Carbon Dioxide 28 (21-32) mmol/L Anion Gap 7 (3-11) BUN 12 (6-23) mg/dl Creatinine 0.46 L (0.6-1.2) mg/dl Est Cr Clr Drug Dosing 117.4 ml/min Est GFR ( Amer) 123.6 ml/min Est GFR (Non-Af Amer) 106.6 ml/min BUN/Creatinine Ratio 26.1 H (10-20) Glucose 148 H (70-99(Fasting)) mg/dl Calcium 9.0 (8.6-10.3) mg/dl Total Bilirubin (0.2-1.0) mg/dl AST (13-39) U/L ALT (7-52) U/L Alkaline Phosphatase (34-104) U/L Troponin I High Sens (0-14) pg/ml Total Protein (6.0-8.3) gm/dl Albumin (3.4-5.0) gm/dl Globulin (2.5-4.0) gm/dl Albumin/Globulin Ratio (0.9-2) Procalcitonin (0-0.5) ng/ml Urine Color Yellow Urine Appearance Clear (Clear) Urine pH 5.0 (4.5-7.5) Ur Specific [place] > 1.045 H (1.000-1.030) Urine Protein Negative (Negative) Urine Glucose (UA) Negative (Negative) Urine Ketones 1+ H (Negative) Urine Blood Negative (Negative) Urine Nitrite Negative (Negative) Urine Bilirubin Negative (Negative) Urine Urobilinogen Negative (Negative) Ur Leukocyte Esterase Negative (Negative) Adenovirus (PCR) (NotDetected) B. pertussis DNA (PCR) (NotDetected) B.parapertussis DNA PCR (NotDetected) C. pneumoniae DNA (PCR) (NotDetected) Coronavirus OC43 (PCR) (NotDetected) Coronavirus HKU1 (PCR) (NotDetected) Coronavirus 229E (PCR) (NotDetected) SARS-CoV-2 (PCR) (NotDetected) Coronavirus NL63 (PCR) (NotDetected) Human Metapneumovir PCR (NotDetected) Influenza Type A (PCR) (NotDetected) Influenza Type B (PCR) (NotDetected) M. pneumoniae (PCR) (NotDetected) Parainfluenza 1 (PCR) (NotDetected) Parainfluenza 2 (PCR) (NotDetected) Parainfluenza 3 (PCR) (NotDetected) Parainfluenza 4 (PCR) (NotDetected) RSV (PCR) (NotDetected) Entero/Rhino (PCR) (NotDetected) Blood Type A Positive Antibody Screen NEGATIVE Crossmatch See Detail 09/04/23 09/04/23 Range/Units 17:24 17:20 WBC 1.31 L (4.8-10.8) K/ul RBC 2.50 L (4.20-5.40) M/uL Hgb 7.9 L (12.0-16.0) g/dl Hct 25.1 L (37.0-47.0) % MCV 100.4 H (80.0-100.0) fL MCH 31.6 (25.0-34.0) pg MCHC 31.5 L (32.0-36.0) g/dL RDW Std Deviation 62.1 H (36.4-46.3) fL RDW Coeff of Sohail 17.2 H (11.5-14.5) % Plt Count 29 L* (130-400) K/uL MPV 10.8 (9.4-12.4) fL Immature Gran % (Auto) 0.8 % Neut % (Auto) 68.6 % Lymph % (Auto) 14.5 % [place] % (Auto) 14.5 % Eos % (Auto) 0.8 % Baso % (Auto) 0.8 % Neut # (Auto) 0.90 L* (1.40-6.50) K/uL Lymph # (Auto) 0.19 L (1.20-3.40) K/uL [place] # (Auto) 0.19 (0.11-0.59) K/uL Eos # (Auto) 0.01 (0.00-0.50) K/uL Baso # (Auto) 0.01 (0.00-0.20) K/uL Immature Gran # (Auto) 0.01 (0.01-0.20) K/uL Anisocytosis Present Macrocytosis Present Ovalocytes 1+ PT 12.6 H (9.0-12.0) Seconds INR 1.2 H (0.9-1.1) APTT 26 (21-31) Seconds PTT Ratio 1.0 Sodium 135 L (136-145) mmol/L Potassium 4.0 (3.5-5.1) mmol/L Chloride 102 (98-107) mmol/L Carbon Dioxide 28 (21-32) mmol/L Anion Gap 5 (3-11) BUN 16 (6-23) mg/dl Creatinine 0.57 L (0.6-1.2) mg/dl Est Cr Clr Drug Dosing 94.7 ml/min Est GFR ( Amer) 115.2 ml/min Est GFR (Non-Af Amer) 99.4 ml/min BUN/Creatinine Ratio 28.1 H (10-20) Glucose 96 (70-99(Fasting)) mg/dl Calcium 8.4 L (8.6-10.3) mg/dl Total Bilirubin 0.6 (0.2-1.0) mg/dl AST 10 L (13-39) U/L ALT 5 L (7-52) U/L Alkaline Phosphatase 44 (34-104) U/L Troponin I High Sens 3.3 (0-14) pg/ml Total Protein 5.4 L (6.0-8.3) gm/dl Albumin 3.2 L (3.4-5.0) gm/dl Globulin 2.2 L (2.5-4.0) gm/dl Albumin/Globulin Ratio 1.5 (0.9-2) Procalcitonin 0.05 (0-0.5) ng/ml Urine Color Urine Appearance (Clear) Urine pH (4.5-7.5) Ur Specific [place] (1.000-1.030) Urine Protein (Negative) Urine Glucose (UA) (Negative) Urine Ketones (Negative) Urine Blood (Negative) Urine Nitrite (Negative) Urine Bilirubin (Negative) Urine Urobilinogen (Negative) Ur Leukocyte Esterase (Negative) Adenovirus (PCR) Not Detected (NotDetected) B. pertussis DNA (PCR) Not Detected (NotDetected) B.parapertussis DNA PCR Not Detected (NotDetected) C. pneumoniae DNA (PCR) Not Detected (NotDetected) Coronavirus OC43 (PCR) Not Detected (NotDetected) Coronavirus HKU1 (PCR) Not Detected (NotDetected) Coronavirus 229E (PCR) Not Detected (NotDetected) SARS-CoV-2 (PCR) Not Detected (NotDetected) Coronavirus NL63 (PCR) Not Detected (NotDetected) Human Metapneumovir PCR Not Detected (NotDetected) Influenza Type A (PCR) Not Detected (NotDetected) Influenza Type B (PCR) Not Detected (NotDetected) M. pneumoniae (PCR) Not Detected (NotDetected) Parainfluenza 1 (PCR) Not Detected (NotDetected) Parainfluenza 2 (PCR) Not Detected (NotDetected) Parainfluenza 3 (PCR) Not Detected (NotDetected) Parainfluenza 4 (PCR) Not Detected (NotDetected) RSV (PCR) Not Detected (NotDetected) Entero/Rhino (PCR) Not Detected (NotDetected) Blood Type Antibody Screen Crossmatch Diagnostic Findings Chest CTA 09/04/23 15:44 CT angio chest PE protocol CLINICAL HISTORY: Dyspnea TECHNIQUE: Multidetector row helical CT of the chest was performed with angiographic protocol. Coronal and sagittal reformations were obtained. Coronal and sagittal MIPS were obtained from the axial data set and were submitted for review. Automated dose lowering techniques and/or adjustment according to patient size were utilized for this exam. CT DOSE: 886.81 mGy.cm Comparison: Comparison is made to CT chest 08/30/2023 FINDINGS: Lungs and pleura: Moderate right and small left pleural effusions. No pneumothorax. Right suprahilar mass is again seen with associated atelectasis. Heart and pericardium: Heart size is normal. No pericardial effusion. Vessels: No evidence of pulmonary embolism. Mediastinum and tasha: Partial visualization of enlarged lymph nodes in the mediastinum. Chest wall and lower neck: Bilateral lymphadenopathy is again seen. Body wall edema is again seen. Abdomen: Unremarkable. Bones: Degenerative changes in the thoracic spine. IMPRESSION: 1. No evidence of pulmonary embolus. 2. Moderate right and small left pleural effusion without evidence of pneumothorax. 3. Redemonstration of large right suprahilar mass with mediastinal and axillary lymphadenopathy. ACT 112: Negative or not required by law. Electronically signed by: Glenroy Monte M.D. 09/04/2023 5:40 PM Chest X-Ray 09/04/23 15:47 XR chest 1V not portable CLINICAL HISTORY: SOB s/p thoracentesis TECHNIQUE: Single frontal radiograph of the chest was obtained. Comparison: Comparison is made to chest radiograph 09/01/2023 FINDINGS: Lines and tubes are stable. The cardiomediastinal silhouette is stable. Right suprahilar mass is again seen. Redemonstration of small bilateral pleural effusions. No pneumothorax. IMPRESSION: No pneumothorax is seen. Stable right suprahilar mass and bilateral pleural effusions. ACT 112: Negative or not required by law. Electronically signed by: Glenroy Monte M.D. 09/04/2023 4:18 PM PG Care Time/CCT Total # of Minutes Spent Total Time Spent with Patient: Total time spent is greater than 50% in coordination of care (as documented) at patient's floor/unit and/or counseling patient: I spent 100 minutes overall addressing this case: 20 min in medical data review/discussion with referring provider(s) and/or preparation for the visit incl OSH data review, [facility] review 15 min in direct interaction with the patient/exam 30 min in Advance Care Planning/Goals of Care discussions as detailed above in note (must be >16min) 15 min in subsequent review and synthesis of assessment and plan 20 min communicating with other providers regarding the patient's case: pulm, oncology, primary team Advanced Care Planning 28554 Advanced Care Planning 30 [place] [address] IN/OBS CONSULT LVL 4,60M (25 - SIGNIFICANT, SEPARATELY IDENTIFIABLE ) Patient Type New Medical Decision Making High Complexity Diagnoses Dyspnea and respiratory abnormalities R06.00; R06.89 Cancer related pain G89.3 Therapeutic opioid-induced constipation (OIC) K59.03; T40.2X5A Advanced care planning/counseling discussion Z71.89 Palliative care by specialist Z51.5 POLST (Physician Orders for Life-Sustaining Treatment) Z78.9 SVC syndrome I87.1 Small cell lung cancer C34.90 Additional Codes Advanced Care Planning - 96494 Advanced Care Planning 30 Min: [id number] Advanced Care Planning 30 Min ([id number])
[2023-09-05] MEDS: LORazepam 0.5 MG TAB PO PRN (10:35)
[2023-09-05 11:04] LABS: Hematocrit (blood only) 27.7 % (37.0-47.0); Hemoglobin 8.9 g/dl (12.0-16.0); Mean Corpuscular Hemoglobin 31.3 pg (25.0-34.0); Mean Corpuscular Hgb Conc 32.1 g/dL (32.0-36.0); Mean Corpuscular Volume 97.5 fL (80.0-100.0); Platelet Count 43 K/uL (130-400); RDW Coefficient of Variation 17.6 % (11.5-14.5); RDW Standard Deviation 61.1 fL (36.4-46.3); Red Blood Count 2.84 M/uL (4.20-5.40); White Blood Count 1.73 K/ul (4.8-10.8)
[2023-09-05 11:05] LABS: Immature Granulocytes # (auto) 0.01 K/uL (0.01-0.20); Immature Granulocytes % (auto) 0.6 %; Lymphocytes # (auto) 0.11 K/uL (1.20-3.40); Lymphocytes % (auto) 6.4 %; Monocytes # (auto) 0.19 K/uL (0.11-0.59); Neutrophils # (auto) 1.42 K/uL (1.40-6.50)
--- NOTE | 2023-09-05 11:09 | Pulmonary Consultation ---
Date of Consultation September 05, 2023 Assessment & Plan (1) Malignant pleural effusion: (2) Extensive stage primary small cell carcinoma of lung: (3) Pancytopenia due to antineoplastic chemotherapy: (4) Hypoxia: (5) SVC syndrome: (6) Squamous cell carcinoma of vulva: (7) Brain metastasis: Plan IMPRESSION: Unfortunate 63-year-old female with a history of recurrent small cell lung cancer which is mildly metastatic, squamous cell carcinoma of the vulva, and recurrent malignant effusion who presents in the setting of worsening dyspnea and associated hypoxemia. RECOMMENDATIONS: 1. Malignant pleural effusion - In the setting of recurrent small cell lung cancer. Patient just underwent thoracentesis on 08/31. She did have symptomatic relief at that point, but dyspnea returned relatively rapidly. Cytology was reviewed and consistent with this diagnosis as well. Unfortunately, the patient remains pancytopenic at this point with a platelet count in the 20s. She is thankfully stable on 2 L nasal cannula at this time. She may be candidate for Pleurx catheter placement, however given her low platelet count, we would not be able to perform this currently. Her DOAC is being held currently. Certainly, if her dyspnea becomes significantly worse and oxygen requirement were to escalate, consideration for repeat thoracentesis alone to help with symptoms may be appropriate. At this point, given her presumed intolerance to chemotherapy, associated pancytopenia, and progression of underlying disease process, consideration for palliative approach would be appropriate in this patient as well. 2. Extensive stage primary small cell carcinoma of the lung - Most recently being treated with topotecan as managed by [facility]. Unfortunately, despite aggressive treatments, the patient seems to be showing ongoing disease progression. 3. Pancytopenia - Likely secondary to chemotherapy. Appreciate oncology recommendations. Again, would be hesitant to perform any extensive procedures at this time given her risk of bleeding. 4. Hypoxia - In the setting of numbers 1 and 2. Continue with supplemental oxygen as needed. 5. SVC syndrome - As previously diagnosed. Previously on Eliquis. Currently being held secondary to pancytopenia with profound platelet reduction. 6. Squamous cell carcinoma of the vulva - Status post radiation therapy. Recent notes suggests concerns for progression. You for allowing us to participate in the care of this pleasant patient. Pulmonary medicine will continue to follow. Supervising Physician Co-Signing Physician Notes Pt seen and examined. Discussed with HARINDER and at [facility] Cancer conference today. Agree with AP as noted by HARINDER. Unfortunate case, appears to have progression of cancer despite chemotherapy. Effusion has reaccumulated but multiple possible etiologies for her symptoms (SVC collapse, deviation of trachea with airway compromise, lymphangitic spread, parenchymal replacement of tumor, etc). Cannot consider pleurex or repeat thora given thrombocytopenia. Unclear role for any additional XRT or chemo at this point and transition to hospice would be very reasonable. Meeting with palliative care today. Recommend addressing code sta tus as CPR and MV unlikely to alter her prognosis or add quality of life. Will reassess after palliative and oncology evaluations. History of Present Illness Reason for Consultation: resp distress w/ NSCLC, recent thoracentesis Requesting Physician: Dr. Palacios Attending Physician: Nathan Solorzano MD History of Present Illness Patient is an unfortunate 63-year-old female with a significant past medical history of extensive stage small cell lung cancer with brain metastases, squamous cell carcinoma of the perineum/vulva, SVC syndrome, tobacco use, and recurrent malignant effusion who presented to the emergency department with worsening shortness of breath. The patient had had some progressive worsening shortness of breath with an associated RIGHT-sided effusion. The patient underwent therapeutic thoracentesis on 09/01/2023 with removal of 1200 mL of dark serous fluid. She does note that she had felt better Monday, but by Monday evening, she had noticed some increased return and work of breathing. By Monday, her symptoms worsened, and when she attempted to work Monday, she was unable to do so secondary to dyspnea. Upon evaluation in the emergency department, the patient was found to be pancytopenic. Additionally, she continues to require supplemental oxygen and reports dyspnea at rest. She offers no complaints of chest pain, palpitations, fevers, chills, or presyncope. She does note some blood in her cough yesterday, however this has not persisted. Allergies Allergy/AdvReac Type Severity Reaction Status Date / Time naproxen Allergy Intermediate ITCHY HIVES Verified 09/04/23 18:22 Home Medications Medication Instructions Recorded Confirmed Type docusate sodium 100 mg capsule 100 mg PO BID PRN Constipation 02/22/22 09/04/23 History oxycodone-acetaminophen 5 mg-325 1 tab PO .Q4hrs PRN pain #10 tabs 11/21/22 09/04/23 Rx mg tablet (Percocet) prednisone 10 mg tablet 10 mg PO DAILY 05/16/23 09/04/23 History silver sulfadiazine 1 % topical 1 applic topical BID PRN radiation 06/05/23 09/04/23 Rx cream (Silvadene) dematitis #85 grams albuterol sulfate 90 mcg/actuation 1 - 2 puff inhalation Q6H PRN 09/04/23 09/04/23 History aerosol inhaler Shortness Of Breath Or Wheezing apixaban 5 mg tablet (Eliquis) 5 mg PO BID 09/04/23 09/04/23 History levofloxacin 500 mg tablet 500 mg PO DAILY 09/04/23 09/04/23 History Patient History Medical History (Updated 09/05/23 @ 13:15 by Ashwin Sandy MD) History of COVID-19 06/2021- sore throat, fatgue- no hospitalization, no current issues Emphysema of lung Surgical History Port-A-Cath in place (02/22/22) History of ear surgery H/O tubal ligation History of colonoscopy History of breast lump/mass excision Family History Father Lung cancer, Onset Age: 70 Cancer Mother Osteoporosis Macular degeneration Brother Abdominal aortic aneurysm (AAA) Cancer of kidney Brother Pancreatic cancer, Onset Age: 50 Sister No problems noted. Sister Hypertension Grandmother (Maternal) Diabetes Congestive heart failure Family/Other Ovarian cancer Other No family history of adverse response to anesthesia No family history of bleeding disorder Denies family history of Breast cancer Colorectal cancer Social History Smoking Status: Former smoker Tobacco Type: Cigarettes Age Started Using Tobacco: 16; Age Quit Using Tobacco: 61; packs per day: 0.5; Cigarettes Per Day: 1-1.5ppd; Second Hand Exposure: No; Do You Dip or Chew Tobacco: No; Hx Alcohol Use: Yes Alcohol type: beer Alcohol Intake Frequency: 4 or More x pe r/Week Hx Substance Use: No Preferred Language: Luxembourgish Communication Ability: Effective Visual Impairment: No Limitations Hearing Ability: Normal Water Systems Engineer Required: No Beliefs That Will Affect Care: None marital status: Current Living Situation: Spouse Current Living Situation Comment: lives in house with steps current occupational status: employed 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 All else were negative. Physical Exam Physical Exam: VITAL SIGNS - Vital signs and nursing notes were reviewed. GENERAL - 63-year-old female appearing her stated age who is in no acute distress. Communicates well with provider and answers questions appropriately. SKIN - Without rashes or lesions. NOSE - Midline and without cyanosis. MOUTH/OROPHARYNX - Without perioral cyanosis. NECK - Neck with FROM. LUNGS - Venous distention noted to the RIGHT-sided chest area. Chest wall evaluation demonstrates normal chest wall A:P diameter. Auscultation reveals diminished breath sounds on the RIGHT. No wheezes or rales. CARDIAC - RRR with S1/S2. No murmur, rubs, or gallops appreciated. ABDOMEN - Abdominal inspection demonstrates an obese abdomen. BS normoactive all four quadrants. No tenderness, palpable masses, or ascites noted. EXTREMITIES - Nail clubbing not present. No peripheral cyanosis. No pretibial edema present. +3/5 radial palpated throughout. PSYCH - A&Ox3 and cooperates fully with examiner. Pt is very pleasant and interacts well with examiner. Results & Data Results & Data Vital Signs (Past 12 Hours) Vital Signs Pulse Pulse Pulse Resp BP BP Pulse Ox 09/05/23 08:18 98 H 19 98 09/05/23 08:00 100 H 22 132/89 96 09/05/23 07:07 89 09/05/23 06:03 99 H 18 96 09/05/23 05:09 92 H 12 09/05/23 04:21 09/05/23 04:21 23 94 09/05/23 04:00 99 H 17 09/05/23 04:00 103/70 09/05/23 04:00 103/70 07/30/24 03:30 101 H 18 97 09/05/23 03:30 104/75 09/05/23 03:30 104/75 09/05/23 03:30 104/75 09/05/23 03:27 109 H 19 97 09/05/23 02:30 127/84 09/05/23 02:21 97 H 17 09/05/23 02:00 97 H 16 09/05/23 02:00 122/73 09/05/23 01:31 109/85 09/05/23 01:21 103 H 20 09/05/23 01:09 105 H 17 93 09/05/23 01:00 130/88 09/05/23 01:00 130/88 09/05/23 01:00 130/88 09/05/23 00:54 98 H 22 96 09/05/23 00:00 100 H 22 95/67 L 94 09/04/23 23:30 93 H 18 102/63 93 O2 Del Method O2 Flow Rate 09/05/23 08:18 Nasal Cannula 2 09/05/23 08:00 Nasal Cannula 2 09/05/23 07:07 09/05/23 06:03 Nasal Cannula 2 09/05/23 05:09 09/05/23 04:21 Nasal Cannula 2 09/05/23 04:21 Nasal Cannula 2 09/05/23 04:00 09/05/23 04:00 09/05/23 04:00 09/05/23 03:30 09/05/23 03:30 09/05/23 03:30 09/05/23 03:30 09/05/23 03:27 09/05/23 02:30 09/05/23 02:21 09/05/23 02:00 09/05/23 02:00 09/05/23 01:31 09/05/23 01:21 09/05/23 01:09 09/05/23 01:00 09/05/23 01:00 09/05/23 01:00 09/05/23 00:54 09/05/23 00:00 Nasal Cannula 2 09/04/23 23:30 Nasal Cannula 2 PG Care Time/CCT Total # of Minutes Spent Total Time Spent with Patient: Total time spent is greater than 50% in coordination of care (as documented) at patient's floor/unit and/or counseling patient: Coding Level of Care Code 65544 IN/OBS CONSULT LVL 4,60M Diagnoses Malignant pleural effusion J91.0 Extensive stage primary small cell carcinoma of lung C34.90 Pancytopenia due to antineoplastic chemotherapy D61.810; T45.1X5A Hypoxia R09.02 SVC syndrome I87.1 Squamous cell carcinoma of vulva C51.9 Brain metastasis C79.31
[2023-09-05 11:20] LABS: BUN Creatinine Ratio 26.1 (10-20); Creatinine Clr Calc Pharmacy 117.4 ml/min; Est GFR (African American) 123.6 ml/min; Est GFR (Non-African American) 106.6 ml/min
[2023-09-05] MEDS: levoFLOXacin 750 MG TAB PO SCH (11:24)
[2023-09-05] MEDS ORDERED: LIDOCAINE 2% JELLY 5 ML TUBE EXT PRN (17:46)
[2023-09-05] MEDS ORDERED: HYDROmorphone INJ 0.5 MG/0.5 ML SYR IV PRN (17:46)
[2023-09-05] MEDS: dexAMETHasone 6 MG in SYRINGE 0 ML IV SCH (18:27)
[2023-09-05] MEDS: PANTOprazole 40 MG TAB PO SCH (18:27)
--- NOTE | 2023-09-05 18:54 | Hospitalist Progress Note ---
Date of Service September 05, 2023 Assessment & Plan (1) Acute respiratory failure with hypoxia: Plan: 2nd to tumor burden from her lung cancer on the right, reaccumulating malignant effusion on the right (and potentially the left), etc. Improved s/p IV dexamethasone last pm in the ER along with scheduled nebs since then. Resp BioFire is negative. No obvious pneumonia, but she could certainly have a post-obstructive process going on in the right lung. To cover for such will continue levaquin 750mg once daily. Continue NC O2. Continue IV dexamethasone 6mg daily starting today; hold prednisone while on such. (2) Primary small cell malignant neoplasm of lung, stage 4: Plan: mets to brain, pleural space, multiple lymph nodes, etc. on chronic prednisone 10mg daily for pain control, brain mets, etc. last chemotherapy was IV topotecan on 08/17/2023 appreciate heme/onc, palliative care, and pulmonary consultations today heme/onc advising transition to hospice Dr Gonzalez to meet with patient/family again tomorrow to discuss goals of care, etc (3) Pancytopenia due to antineoplastic chemotherapy: Plan: 2nd to IV topotecan on 08/17/2023 ANC <1000 today Neutropenic precautions cbc w/ diff in am (4) Squamous cell carcinoma of vulva: Plan: with metastatic disease based on most recent imaging (5) Therapeutic opioid-induced constipation (OIC): Plan: cont a bowel regimen (6) 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 (7) Cancer related pain: Plan: cont percocet prn add dilaudid prn add lidocaine jelly for prn use for vulvar pain adjust as needed (8) Malignant pleural effusion: Plan: right s/p thoracentesis 08/31 with pathology c/w malignant effusion from her lung cancer already it is reaccumulating if dyspnea, etc worsens pulmonary willing to place a PleurX catheter but her severe thrombocytopenia will increase her bleeding risk significantly Her Eliquis is on hold in the event of needing PleurX sometime later in the admission appreciate pulmonary consult & recs (9) Radiation esophagitis: Plan: history of noted add PPI in light of steroid use, etc (10) History of DVT (deep vein thrombosis): Plan: noted Eliquis is on hold in the event she needs PleurX catheter insertion on right Plan family updated at bedside Admission and Anticipated Discharge Date Admission Date: September 04, 2023 Subjective patient resting in bed comfortably multiple family members/friends at bedside she reports mild pain over the right upper back as well as vulvar pain states that her dyspnea is improved from last pm denies any chest pain or abd pain has had mild headaches last few weeks attributed to stopping caffeine consumption tele overnight lenin had had anxiety overnight and was given ativan this helped her anxiety and she requested that it be continued Review of Systems Review of Systems: gen - no fevers HENT - mild throat discomfort at times cv - no orthopnea pulm - no hemoptysis Physical Exam Physical Exam: gen - very pleasant, NAD, lying comfortably in bed neck - distended jugular veins chest - distended superficial veins on chest wall; ?edematous breasts? mouth - minimal erythema posterior throat heart - RRR, s1 s2 lungs - mild end-exp wheezes b/l but much more so on the right; some stridor also present; no rales; decreased BS right base; no increased work of breathing abd - soft NT ND BS+ ext - <1+ edema b/l ankles/shins; pulses 2+ b/l psych - a/o x 3 Results & Data Results & Data Vital Signs (Past 12 Hours) Vital Signs Temp Pulse Pulse Pulse Resp BP BP 09/05/23 17:17 103 H 09/05/23 16:51 36.5 C 111 H 18 110/68 09/05/23 14:45 09/05/23 14:35 36.5 C 103 H 20 104/70 09/05/23 13:40 103 H 22 09/05/23 08:18 98 H 19 09/05/23 08:00 100 H 22 132/89 09/05/23 07:07 89 Pulse Ox O2 Del Method O2 Flow Rate 09/05/23 17:17 09/05/23 16:51 96 Room Air 09/05/23 14:45 Nasal Cannula 2 09/05/23 14:35 93 Room Air 09/05/23 13:40 95 Nasal Cannula 2 09/05/23 08:18 98 Nasal Cannula 2 09/05/23 08:00 96 Nasal Cannula 2 09/05/23 07:07 Laboratory Results Laboratory Results - last 24 hr 09/04/23 09/04/23 09/04/23 17:24 20:40 21:23 Procalcitonin 0.05 Urine Color Yellow Urine Appearance Clear Urine pH 5.0 Ur Specific [place] > 1.045 H Urine Protein Negative Urine Glucose (UA) Negative Urine Ketones 1+ H Urine Blood Negative Urine Nitrite Negative Urine Bilirubin Negative Urine Urobilinogen Negative Ur Leukocyte Esterase Negative Blood Type A Positive Antibody Screen NEGATIVE Crossmatch See Detail 09/05/23 10:30 WBC 1.73 L RBC 2.84 L Hgb 8.9 L Hct 27.7 L MCV 97.5 MCH 31.3 MCHC 32.1 RDW Std Deviation 61.1 H RDW Coeff of Sohail 17.6 H Plt Count 43 L MPV 11.0 Immature Gran % (Auto) 0.6 Neut % (Auto) 82.0 Lymph % (Auto) 6.4 Luna % (Auto) 11.0 Eos % (Auto) 0.0 Baso % (Auto) 0.0 Neut # (Auto) 1.42 Lymph # (Auto) 0.11 L Luna # (Auto) 0.19 Eos # (Auto) 0.00 Baso # (Auto) 0.00 Immature Gran # (Auto) 0.01 Sodium 137 Potassium 4.0 Chloride 102 Carbon Dioxide 28 Anion Gap 7 BUN 12 Creatinine 0.46 L Est Cr Clr Drug Dosing 117.4 Est GFR ( Amer) 123.6 Est GFR (Non-Af Amer) 106.6 BUN/Creatinine Ratio 26.1 H Glucose 148 H Calcium 9.0 PG Care Time/CCT Total # of Minutes Spent Total Time Spent with Patient: Total time spent is greater than 50% in coordination of care (as documented) at patient's floor/unit and/or counseling patient: Coding Level of Care Code 38632 SUB INP/OBS CARE 3/50MIN Diagnoses Acute respiratory failure with hypoxia J96.01 Primary small cell malignant neoplasm of lung, stage 4 C34.90 Pancytopenia due to antineoplastic chemotherapy D61.810; T45.1X5A Squamous cell carcinoma of vulva C51.9 Therapeutic opioid-induced constipation (OIC) K59.03; T40.2X5A SVC syndrome I87.1 Cancer related pain G89.3 Malignant pleural effusion J91.0 Radiation esophagitis K20.80; T66.XXXA History of DVT (deep vein thrombosis) Z86.718
[2023-09-05] MEDS: NYSTATIN SUSP 500,000 U/5 ML UDC PO SCH (19:57)
[2023-09-06 06:00] LABS: Hematocrit (blood only) 24.7 % (37.0-47.0); Hemoglobin 7.7 g/dl (12.0-16.0); Immature Granulocytes # (auto) 0.02 K/uL (0.01-0.20); Immature Granulocytes % (auto) 1.4 %; Lymphocytes # (auto) 0.08 K/uL (1.20-3.40); Lymphocytes % (auto) 5.6 %; Mean Corpuscular Hemoglobin 30.9 pg (25.0-34.0); Mean Corpuscular Hgb Conc 31.2 g/dL (32.0-36.0); Mean Corpuscular Volume 99.2 fL (80.0-100.0); Mean Platelet Volume 10.7 fL (9.4-12.4); Monocytes % (auto) 13.9 %; Neutrophils # (auto) 1.14 K/uL (1.40-6.50); Neutrophils % (auto) 79.1 %; Platelet Count 49 K/uL (130-400); RDW Coefficient of Variation 18.1 % (11.5-14.5); Red Blood Count 2.49 M/uL (4.20-5.40); White Blood Count 1.44 K/ul (4.8-10.8)
[2023-09-06 06:21] LABS: Polychromasia 1+
[2023-09-06 06:26] LABS: Calcium 8.7 mg/dl (8.6-10.3); Creatinine Clr Calc Pharmacy 103.8 ml/min; Est GFR (African American) 118.7 ml/min; Est GFR (Non-African American) 102.4 ml/min; Potassium 3.8 mmol/L (3.5-5.1)
--- NOTE | 2023-09-06 07:38 | Pulmonology Progress Note ---
Date of Service September 06, 2023 Assessment & Plan (1) Malignant pleural effusion: (2) Extensive stage primary small cell carcinoma of lung: (3) Pancytopenia due to antineoplastic chemotherapy: (4) Hypoxia: (5) SVC syndrome: (6) Squamous cell carcinoma of vulva: (7) Brain metastasis: Plan IMPRESSION: Unfortunate 63-year-old female with a history of recurrent small cell lung cancer which is mildly metastatic, squamous cell carcinoma of the vulva, and recurrent malignant effusion who presents in the setting of worsening dyspnea and associated hypoxemia. RECOMMENDATIONS: 1. Malignant pleural effusion -patient had relief after her last thoracentesis for about 24 hours. Discussed placement of an indwelling tunneled pleural catheter with her and she is open to that prospect if it would offer her relief. Her DOAC's been held. If her platelets remain above 50,000, will reassess in a.m. for potential Pleurx catheter placement although I am unclear how much relief that we will offer the patient. 2. Extensive stage primary small cell carcinoma of the lung -Per oncology 3. Hypoxia - In the setting of numbers 1 and 2. Continue with supplemental oxygen as needed. 4. SVC syndrome - As previously diagnosed. Anticoagulation on hold currently Patient's prognosis appears poor. I briefly discussed with her that intubation mechanical ventilation and CPR would be unlikely to change the clinical course of her disease as this is not reversible. She expressed understanding and states that they are in discussions. Would favor transitioning from full code to DNR/DNI. Comfort measures would be highly appropriate in this patient. Will reassess in a.m. for potential pleural catheter placement Admission and Anticipated Discharge Date Admission Date: September 04, 2023 Subjective Patient seen and examined. EMR reviewed. The patient states she is slightly more short of breath this morning. She is coughing but not expectorating any phlegm. She is potentially interested in a Pleurx catheter if it would offer her some palliation of symptoms. She is reconsidering CODE STATUS and scheduled to meet again with palliative care and medical oncology later today. She denies fevers chills night sweats or other constitutional symptoms Review of Systems 2 Review of Systems: All systems reviewed & are unremarkable except as noted in Subjective Physical Exam 2 Constitutional: cooperative; not in distress Respiratory: + labored breathing, + uses accessory mu scles, + cough, able to speak in complete sentences and + tachypneic; no respiratory distress A uscultation: + wheezes (expiratory bilaterally) Cardiovascular: RRR, no murmur, no edema Extremities: normal capillary refill; no calf tenderness and no pedal edema Gastrointestinal (Abdomen): normal bowel sounds, soft, nontender, no hepatosplenomegaly Psychiatric: A+Ox3, euthymic affect Results & Data Results & Data Vital Signs (Past 12 Hours) Vital Signs Temp Pulse Pulse Resp BP Pulse Ox Pulse Ox 09/06/23 07:15 96 H 20 97 09/06/23 06:49 95 H 09/06/23 04:00 36.9 C 92 H 20 104/70 96 09/06/23 01:56 94 H 16 94 09/05/23 22:47 96 09/05/23 22:41 36.8 C 97 H 20 100/60 96 09/05/23 20:00 09/05/23 19:40 36.7 C 103 H 22 113/72 95 09/05/23 19:39 98 H 26 H 95 O2 Del Method O2 Del Method O2 Flow Rate O2 Flow Rate 09/06/23 07:15 Nasal Cannula 2 09/06/23 06:49 09/06/23 04:00 Nasal Cannula 09/06/23 01:56 Nasal Cannula 2 09/05/23 22:47 Nasal Cannula 2 09/05/23 22:41 Nasal Cannula 09/05/23 20:00 Nasal Cannula 2 09/05/23 19:40 Nasal Cannula 09/05/23 19:39 Nasal Cannula 2 Laboratory Results 09/06/23 05:20 09/06/23 05:20 Diagnostic Findings No new imaging PG Care Time/CCT Total # of Minutes Spent Total Time Spent with Patient: Total time spent is greater than 50% in coordination of care (as documented) at patient's floor/unit and/or counseling patient: Coding Level of Care Code 72987 SUB INP/OBS CARE 235MIN Diagnoses Malignant pleural effusion J91.0 Extensive stage primary small cell carcinoma of lung C34.90 Pancytopenia due to antineoplastic chemotherapy D61.810; T45.1X5A Hypoxia R09.02 SVC syndrome I87.1 Squamous cell carcinoma of vulva C51.9 Brain metastasis C79.31
--- NOTE | 2023-09-06 10:25 | Palliative Care Progress Note ---
Date of Service September 06, 2023 Assessment & Plan (1) Dyspnea and respiratory abnormalities: Plan: Continue prn Percocet Dilaudid increased to 0.5mg IV q1h prn in case of resp crisis/acute decline (2) Anxiety associated with cancer diagnosis: Plan: Increased Ativan 0.5mg PO to q4h prn Added Ativan 1mg PO q4h prn use for anxiety, agitation, insomnia (3) Cancer related pain: (4) Therapeutic opioid-induced constipation (OIC): (5) POLST (Physician Orders for Life-Sustaining Treatment): Plan: She elects DNR/DNI She would like home with hospice See ACP discussion (6) Advanced care planning/counseling discussion: Plan: Face to face ACP meeting x 45min with pt, sisters x2, sister in law x1 and niece on the phone x1 (Ivonne) Reviewed meeting and details from yesterday's discussion She has decided to go home with hospice, prefers [facility] or [facility], she knows nurses from both teams and thinks highly of them Will return to her own home. Family will support. in agreement and wants her home with him She asked if the RT would be meaningful relief, I asked Dr Feliciano who confirmed this area has been previously treated and re-treating at this junction with disease progression has low probability for benefit She was satisfied knowing the formal answer Her nieces checked clinical trials, one niece is a nurse at [facility], they noted that having a second, primary cancer is exclusion criteria. She asked about prognosis, we reviewed that with the growing airway compromise and tumor progression, time is likely weeks to a month or so. She is deliberating submitting paperwork for disability bc she wants t do all she can to leave with some financial latitude after hear . She expressed worry for him being on his own, noting she has historically "done everything for him, he isn't going to know what to do. I'm going to have to start writing stuff down for him." Family expressed reassurance they will continue to support and assist him, and they will keep checking on him. We discussed other realms of support including cultural and spiritual. She tells me she is a christian but not actively practicing. Liss is somewhat important but not central to her life and she declines offer for spiritual support this admission. She feels best when her family is with her and she has their support. Extensive psychosocial reassurance given. Legacy work reviewed. Encouraged to spend time individually with the people who matter most to her. Suggested working on some legacy projects such as letters/cards for , sisters etc on milestone dates/anniversaries etc. [facility] Compendium Notes to help simplify this, available via [employer] or [employer]. (7) Palliative care by specialist: Plan As above Thank you for allowing us to participate in the ongoing care of this patient. Please page with any additional concerns. Radha Gonzalez DNP Director, Palliative Medicine Admission and Anticipated Discharge Date Admission Date: September 04, 2023 Subjective Jessica is seen bedside with her sisters x2, sister in law x1, niece on phone Her could not b here due to an emergency (their 14yo dog acutely declined and he is at the vet for likely end of life) Jessica is struggling with the news of her dog dying, not being able to be there, and the news of her own worsening medical issues resp effort increased but she is ok with current nebs She feels pain is ok with percocet and knows she has prn IV Dilaudid but has not felt she needed to use it Anxiety increased, ativan helps but feels 0.5mg dose needs a little increase and perhaps make it more available to her appetite ok Review of Systems Review of Systems: All systems reviewed & are unremarkable except as noted in Subjective Physical Exam Physical Exam: NCAT perrla,eomi's aaox3 inc resp effort higher pitched vocal quality chest wall vessels are prominent chest wall edema/breast edema prominent conversational dyspnea dry cough, intermittent throat clearing tachy s1s2, +JVD abd soft RAHMAN, mild generalized weakness pale skin, no gross cyanosis Results & Data Vital Signs (Past 12 Hours) Vital Signs Temp Pulse Pulse Resp BP Pulse Ox Pulse Ox 09/06/23 08:24 36.5 C 118 H 18 95/67 L 93 09/06/23 08:07 09/06/23 07:15 96 H 20 97 09/06/23 06:49 95 H 09/06/23 04:00 36.9 C 92 H 20 104/70 96 09/06/23 01:56 94 H 16 94 09/05/23 22:47 96 09/05/23 22:41 36.8 C 97 H 20 100/60 96 O2 Del Method O2 Del Method O2 Flow Rate O2 Flow Rate 09/06/23 08:24 Nasal Cannula 2 09/06/23 08:07 Nasal Cannula 2 09/06/23 07:15 Nasal Cannula 2 09/06/23 06:49 09/06/23 04:00 Nasal Cannula 09/06/23 01:56 Nasal Cannula 2 09/05/23 22:47 Nasal Cannula 2 09/05/23 22:41 Nasal Cannula Laboratory Results Abnormal lab results 09/05/23 09/06/23 Range/Units 10:30 05:20 WBC 1.73 L 1.44 L (4.8-10.8) K/ul RBC 2.84 L 2.49 L (4.20-5.40) M/uL Hgb 8.9 L 7.7 L (12.0-16.0) g/dl Hct 27.7 L 24.7 L (37.0-47.0) % MCHC 31.2 L (32.0-36.0) g/dL RDW Std Deviation 61.1 H 63.0 H (36.4-46.3) fL RDW Coeff of Sohail 17.6 H 18.1 H (11.5-14.5) % Plt Count 43 L 49 L (130-400) K/uL Neut # (Auto) 1.14 L (1.40-6.50) K/uL Lymph # (Auto) 0.11 L 0.08 L (1.20-3.40) K/uL Creatinine 0.46 L 0.52 L (0.6-1.2) mg/dl BUN/Creatinine Ratio 26.1 H 25.0 H (10-20) Glucose 148 H 156 H (70-99(Fasting)) mg/dl Diagnostic Findings Chest CTA 09/04/23 15:44 CT angio chest PE protocol CLINICAL HISTORY: Dyspnea TECHNIQUE: Multidetector row helical CT of the chest was performed with angiographic protocol. Coronal and sagittal reformations were obtained. Coronal and sagittal MIPS were obtained from the axial data set and were submitted for review. Automated dose lowering techniques and/or adjustment according to p atient size were utilized for this exam. CT DOSE: 886.81 mGy.cm Comparison: Comparison is made to CT chest 08/30/2023 FINDINGS: Lungs and pleura: Moderate right and small left pleural effusions. No pneumothorax. Right suprahilar mass is again seen with associated atelectasis. Heart and pericardium: Heart size is normal. No pericardial effusion. Vessels: No evidence of pulmonary embolism. Mediastinum and tasha: Partial visualization of enlarged lymph nodes in the mediastinum. Chest wall and lower neck: Bilateral lymphadenopathy is again seen. Body wall edema is again seen. Abdomen: Unremarkable. Bones: Degenerative changes in the thoracic spine. IMPRESSION: 1. No evidence of pulmonary embolus. 2. Moderate right and small left pleural effusion without evidence of pneum othorax. 3. Redemonstration of large right suprahilar mass with mediastinal and axillary lymphadenopathy. ACT 112: Negative or not required by law. Electronically signed by: Glenroy Monte M.D. 09/04/2023 5:40 PM Chest X-Ray 09/04/23 15:47 XR chest 1V not portable CLINICAL HISTORY: SOB s/p thoracentesis TECHNIQUE: Single frontal radiograph of the chest was obtained. Comparison: Comparison is made to chest radiograph 09/01/2023 FINDINGS: Lines and tubes are stable. The cardiomediastinal silhouette is stable. Right suprahilar mass is again seen. Redemonstration of small bilateral pleural effusions. No pneumothorax. IMPRESSION: No pneumothorax is seen. Stable right suprahilar mass and bilateral pleural effusions. ACT 112: Negative or not required by law. Electronically signed by: Glenroy Monte M.D. 09/04/2023 4:18 PM PG Care Time/CCT Total # of Minutes Spent Total Time Spent with Patient: Total time spent is greater than 50% in coordination of care (as documented) at patient's floor/unit and/or counseling patient: I spent 100 minutes overall addressing this case: 10 min in medical data review/discussion with referring provider(s) and/or preparation for the visit 15 min in direct interaction with the patient/exam 45 min in Advance Care Planning/Goals of Care discussions as detailed above in note (must be >16min) 15 min in subsequent review and synthesis of assessment and plan 15 min communicating with other providers regarding the patient's case: nursing, care mgt, primary team, oncology Advanced Care Planning 52981 Advanced Care Planning 30 Min 68847 Advanced Care Planning Additional 30 Min [place] [address] SUB INP/OBS CARE 3/50MIN (25 - SIGNIFICANT, SEPARATELY IDENTIFIABLE ) Patient Type Established Diagnoses Dyspnea and respiratory abnormalities R06.00; R06.89 Anxiety associated with cancer diagnosis F41.1; C80.1 Cancer related pain G89.3 Therapeutic opioid-induced constipation (OIC) K59.03; T40.2X5A POLST (Physician Orders for Life-Sustaining Treatment) Z78.9 Advanced care planning/counseling discussion Z71.89 Palliative care by specialist Z51.5 Additional Codes Advanced Care Planning - 95055 Advanced Care Planning 30 Min: 70107 Advanced Care Planning 30 Min ([id number]) Advanced Care Planning - 62414 Advanced Care Planning Additional 30 Min: 89198 Advanced Care Planning Additional 30 Min ([id number])
[2023-09-06] MEDS: oxyCODONE/ACETAMINOPHEN 5mg/325mg TAB PO PRN (12:24)
--- NOTE | 2023-09-06 14:28 | Hospitalist Progress Note ---
Date of Service September 06, 2023 Assessment & Plan (1) Acute respiratory failure with hypoxia: Plan: 2nd to tumor burden from her lung cancer on the right, reaccumulating malignant effusion on the right (and potentially the left), etc. Improved s/p IV dexamethasone and scheduled nebs since admission. Resp BioFire is negative. No obvious pneumonia, but she could certainly have a post-obstructive process going on in the right lung. To cover for such will continue levaquin 750mg once daily. Continue NC O2. Continue IV dexamethasone 6mg daily. Hold po prednisone. (2) Primary small cell malignant neoplasm of lung, stage 4: Plan: mets to brain, pleural space, multiple lymph nodes, etc. on chronic prednisone 10mg daily for pain control, brain mets, etc. last chemotherapy was IV topotecan on 08/17/2023 this resulted in pancytopenia & neutropenia appreciate heme/onc, palliative care, and pulmonary consultations Dr Barr from heme/onc advised transition to hospice; patient desiring such after multiple discussions with Dr Gonzalez and her family (3) Pancytopenia due to antineoplastic chemotherapy: Plan: 2nd to IV topotecan on 08/17/2023 ANC again <1000 today Neutropenic precautions cbc w/ diff in am mainly to check platelets (4) Squamous cell carcinoma of vulva: Plan: with metastatic disease based on most recent imaging (5) Therapeutic opioid-induced constipation (OIC): Plan: cont a bowel regimen (6) 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 (7) Cancer related pain: Plan: cont percocet prn cont dilaudid prn cont lidocaine jelly for prn use for vulvar pain adjust as needed (8) Malignant pleural effusion: Plan: right s/p thoracentesis 08/31 with pathology c/w malignant effusion from her lung cancer already it is reaccumulating Her Eliquis is on hold in the event of needing PleurX this admission Pulmonary is trying to decide whether to place the PleurX - if yes they will need platelet count to be >50,000 appreciate pulmonary consult & recs recheck cbc am (9) Radiation esophagitis: Plan: history of noted cont PPI in light of steroid use, etc (10) History of DVT (deep vein thrombosis): Plan: noted Eliquis is on hold in the event she needs PleurX catheter insertion on right Plan family updated at bedside again today can d/c tele move to comfortable room on med/surg support given appreciate social work assistance Admission and Anticipated Discharge Date Admission Date: September 04, 2023 Subjective multiple family members at bedside today including her they report that their dog of 10+ years this am she & her are very saddened by this pt & her family met with Dr Gonzalez from palliative care this am they plan to return home with hospice she denies any new complaints still with mild dyspnea still with pain on back, right chest, and vulvar region Review of Systems Review of Systems: pulm - mild wheeze, cough, dyspnea GI - no abd pain psych - anxious but sleeping ok Physical Exam Physical Exam: gen - pleasant, NAD, lying comfortably in bed; audible wheeze present neck - distended jugular veins chest - distended superficial veins on chest wall; edematous chest wall and breasts unchanged mouth - no obvious thrush today heart - tachy, s1 s2, no murmur lungs - mild end-exp wheezes but improved from prior exam; some inspiratory stridor still present; no rales; mildly decreased BS right base; mild tachypnea abd - soft NT ND BS+ ext - <1+ edema b/l ankles/shins; pulses 2+ b/l psych - a/o x 3, tearful at times Results & Data Results & Data Vital Signs (Past 12 Hours) Vital Signs Temp Pulse Pulse Resp BP Pulse Ox O2 Del Method 09/06/23 13:12 104 H 20 90 Room Air 09/06/23 12:18 36.5 C 113 H 18 88/57 L 93 Nasal Cannula 09/06/23 08:24 36.5 C 118 H 18 95/67 L 93 Nasal Cannula 09/06/23 08:07 Nasal Cannula 09/06/23 07:15 96 H 20 97 Nasal Cannula 09/06/23 06:49 95 H 09/06/23 04:00 36.9 C 92 H 20 104/70 96 Nasal Cannula O2 Flow Rate 09/06/23 13:12 09/06/23 12:18 2 09/06/23 08:24 2 09/06/23 08:07 2 09/06/23 07:15 2 09/06/23 06:49 09/06/23 04:00 Laboratory Results Laboratory Results - last 24 hr 09/06/23 05:20 WBC 1.44 L RBC 2.49 L Hgb 7.7 L Hct 24.7 L MCV 99.2 MCH 30.9 MCHC 31.2 L RDW Std Deviation 63.0 H RDW Coeff of Sohail 18.1 H Plt Count 49 L MPV 10.7 Immature Gran % (Auto) 1.4 Neut % (Auto) 79.1 Lymph % (Auto) 5.6 [place] % (Auto) 13.9 Eos % (Auto) 0.0 Baso % (Auto) 0.0 Neut # (Auto) 1.14 L Lymph # (Auto) 0.08 L [place] # (Auto) 0.20 Eos # (Auto) 0.00 Baso # (Auto) 0.00 Immature Gran # (Auto) 0.02 Polychromasia 1+ Sodium 138 Potassium 3.8 Chloride 102 Carbon Dioxide 30 Anion Gap 6 BUN 13 Creatinine 0.52 L Est Cr Clr Drug Dosing 103.8 Est GFR ( Amer) 118.7 Est GFR (Non-Af Amer) 102.4 BUN/Creatinine Ratio 25.0 H Glucose 156 H Calcium 8.7 PG Care Time/CCT Total # of Minutes Spent Total Time Spent with Patient: Total time spent is greater than 50% in coordination of care (as documented) at patient's floor/unit and/or counseling patient: Coding Level of Care Code 37563 SUB INP/OBS CARE 1/MIN Diagnoses Acute respiratory failure with hypoxia J96.01 Primary small cell malignant neoplasm of lung, stage 4 C34.90 Pancytopenia due to antineoplastic chemotherapy D61.810; T45.1X5A Squamous cell carcinoma of vulva C51.9 Therapeutic opioid-induced constipation (OIC) K59.03; T40.2X5A SVC syndrome I87.1 Cancer related pain G89.3 Malignant pleural effusion J91.0 Radiation esophagitis K20.80; T66.XXXA History of DVT (deep vein thrombosis) Z86.718
[2023-09-06] MEDS: LORazepam 1 MG TAB PO PRN (19:37)
[2023-09-07] MEDS: LORazepam 0.5 MG TAB PO PRN (00:23)
[2023-09-07] MEDS: ALBUTEROL HFA 8 GM INHALER INH PRN (03:32)
[2023-09-07 08:18] LABS: Hematocrit (blood only) 28.6 % (37.0-47.0); Hemoglobin 8.6 g/dl (12.0-16.0); Mean Corpuscular Hemoglobin 30.8 pg (25.0-34.0); Mean Corpuscular Hgb Conc 30.1 g/dL (32.0-36.0); Mean Corpuscular Volume 102.5 fL (80.0-100.0); Mean Platelet Volume 10.9 fL (9.4-12.4); Nucleated RBC # (auto) 0.03 K/uL (0.00-0.12); Nucleated RBC % (auto) 0.9 %; Platelet Count 65 K/uL (130-400); RDW Coefficient of Variation 18.5 % (11.5-14.5); RDW Standard Deviation 66.3 fL (36.4-46.3); Red Blood Count 2.79 M/uL (4.20-5.40); White Blood Count 3.34 K/ul (4.8-10.8)
--- NOTE | 2023-09-07 11:21 | Pulmonology Progress Note ---
Date of Service September 07, 2023 Assessment & Plan (1) Malignant pleural effusion: (2) Extensive stage primary small cell carcinoma of lung: (3) Pancytopenia due to antineoplastic chemotherapy: (4) Hypoxia: (5) SVC syndrome: (6) Squamous cell carcinoma of vulva: (7) Brain metastasis: Plan IMPRESSION: Unfortunate 63-year-old female with a history of recurrent small cell lung cancer which is mildly metastatic, squamous cell carcinoma of the vulva, and recurrent malignant effusion who presents in the setting of worsening dyspnea and associated hypoxemia. RECOMMENDATIONS: 1. Malignant pleural effusion - Patient had relief after her last thoracentesis for about 24 hours. Her platelet count has improved to 65,000. We discussed Pleurx catheter placement which she would prefer undergoing now she feels as though it may help her symptoms moving forward. Her DOAC has been held. We will proceed with placement of palliative Pleurx catheter. She will have home hospice care who will hopefully be able to help with draining. 2. Extensive stage primary small cell carcinoma of the lung - Per oncology 3. Hypoxia - In the setting of numbers 1 and 2. Continue with supplemental oxygen as needed. 4. SVC syndrome - As previously diagnosed. Anticoagulation on hold currently 5. Patient is DNR/DNI at this time. She plans to be discharged to home to hospice care in the next 24 hours or so. Thank you for allowing us to participate in the care of this pleasant patient. Pulmonary medicine will sign off at this time. Please reach out to us for any further recommendations. Admission and Anticipated Discharge Date Admission Date: September 04, 2023 Subjective Patient was seen and evaluated today. She states that she still is having some discomfort with breathing and shortness of breath at rest. We did review her labs today including her improving platelet count. She would like to proceed with Pleurx catheter placement as she feels as though this may provide her with some relief of symptoms. Physical Exam Physical Exam: VITAL SIGNS - Vital signs and nursing notes were reviewed. GENERAL - 63-year-old female appearing her stated age who is in no acute distress. Communicates well with provider and answers questions appropriately. SKIN - Without rashes or lesions. NOSE - Midline and without cyanosis. MOUTH/OROPHARYNX - Without perioral cyanosis. NECK - Neck with FROM. LUNGS - Venous distention noted to the RIGHT-sided chest area. Chest wall evaluation demonstrates normal chest wall A:P diameter. Auscultation reveals diminished breath sounds on the RIGHT. No wheezes or rales. CARDIAC - RRR with S1/S2. No murmur, rubs, or gallops appreciated. ABDOMEN - Abdominal inspection demonstrates an obese abdomen. BS normoactive all four quadrants. No tenderness, palpable masses, or ascites noted. EXTREMITIES - Nail clubbing not present. No peripheral cyanosis. No pretibial edema present. +3/5 radial palpated throughout. PSYCH - A&Ox3 and cooperates fully with examiner. Pt is very pleasant and interacts well with examiner. Results & Data Results & Data Vital Signs (Past 12 Hours) Vital Signs Temp Pulse Resp BP Pulse Ox O2 Del Method O2 Flow Rate 09/07/23 07:59 36.5 C 94 H 22 115/72 95 Nasal Cannula 2 09/07/23 07:32 Nasal Cannula 2 09/07/23 07:15 68 16 99 Nasal Cannula 3 09/07/23 00:25 Nasal Cannula 2 09/07/23 00:05 95 H 20 95 Nasal Cannula 2 PG Care Time/CCT Total # of Minutes Spent Total Time Spent with Patient: Total time spent is greater than 50% in coordination of care (as documented) at patient's floor/unit and/or counseling patient: Coding Level of Care Code 23735 SUB INP/OBS CARE 2/35MIN Diagnoses Malignant pleural effusion J91.0 Extensive stage primary small cell carcinoma of lung C34.90 Pancytopenia due to antineoplastic chemotherapy D61.810; T45.1X5A Hypoxia R09.02 SVC syndrome I87.1 Squamous cell carcinoma of vulva C51.9 Brain metastasis C79.31
--- NOTE | 2023-09-07 13:17 | Procedure Note ---
Procedure Note Date of Service September 07, 2023 Note Procedure: Ultrasound guided right Pleurx catheter placement. Indication: Recurrent malignant effusion Consent: Signed by patient and verified with timeout prior to procedure. Anesthesia: 15 mL's 1% lidocaine without epinephrine locally. Refrigeration Technician: Dr. Todd Bocanegra Indication: Recurrent malignant effusion Estimated blood loss: 5 mL Procedure: Appropriate radiographic films had been reviewed prior to commencement of the procedure. Risks and benefits were again discussed with patient consent was verified. The patient was placed in the right side up lateral decubitus position. Limited thoracic ultrasound was performed which revealed a small right-sided effusion with compressive atelectasis. Site appropriate for the pleurotomy was marked. Skin was prepped and draped in normal sterile fashion. Using 1% lidocaine, the skin and soft tissues down to the pleura were anesthetized. A tract extending approximately 8 to 10 cm anteriorly from the pleurotomy site was also infiltrated and a site appropriate for the exit of the Pleurx catheter was marked. A 1 cm skin tori was made at the posterior site. The catheter over the needle apparatus was advanced into the pleural space with pleural fluid easily aspirated. A wire was passed through the catheter after the needle was removed. The Pleurx catheter was then loaded on the tunneling device. A 1cm skin incision was made at the anterior catheter exit site. The tunneling device with the attached Pleurx catheter were passed from the anterior incision back to the posterior incision until the cuff of the Pleurx catheter resided within the subcutaneous tissues. The catheter was palpated along its course and no kinking was identified. Serial dilatation was then performed over the wire with the pull-away catheter being left in place. The Pleurx was removed from the tunneling mechanism and advanced through the peel-away catheter. The catheter sheath was then peeled back as the Pleurx catheter was advanced into the pleural space. The Pleurx catheter course was palpated and no kinks were felt. It was attached to wall suction and a total of 100 mL's was removed. Using 1-0 silk, 2 stitches were placed at the exit Pleurx site and the catheter secured in place. 2 small Vicryl sutures were used to close the posterior incision. A sterile dressing was applied. The patient tolerated the procedure well without obvious complication. Post procedure x-ray is pending. Estimated blood loss: Less than 10 mL's Coding CPT Codes Pulmonary/Thoracic - Pulmonary and Thoracic: 02204 Insert pleural cathereter w/cuff ([id number]) Pulmonary/Thoracic - Pulmonary and Thoracic: 63833 US, Chest, real time with imaging documentation ([id number]) [facility] [place]Charges) Pulmonary/Thoracic Procedure 1: Pulmonary and Thoracic: 79963 Insert pleural cathereter w/cuff Procedure 2: Pulmonary and Thoracic: 64043 US, Chest, real time with imaging documentation
--- NOTE | 2023-09-07 14:17 | XRay Report ---
XR chest 1V portable HISTORY: 63 years-old Female s/p RIGHT sided pleurx status post placement of a right-sided chest tub e COMPARISON: CTA chest and chest radiograph studies 09/04/2023 TECHNIQUE: AP view of the chest FINDINGS: Large mass within the right mid and upper hemithorax redemonstrated. Loculated right pleural effusion with right basilar consolidation and right lung volume loss redemonstrated. Unchanged left subclavia n [id number] catheter. Status post placement of a right basilar chest tube. No postprocedural pneu mothorax identified. IMPRESSION: 1. Status post placement of a right basilar chest tube. No postprocedural pneumothorax identified. 2. Additional findings of the chest are better evaluated on the PA exam from 09/04/2023 ACT 112: Negative or not required by law. The above report was generated using voice recognition software. It may contain grammatical, syntax o r spelling errors. Electronically signed by: Stephan Phillips M.D. 09/07/2023 2:15 PM
[2023-09-07] MEDS: LIDOCAINE 1% LOCAL 20 ML VIAL INJ ONE (14:52)
--- NOTE | 2023-09-07 19:38 | Hospitalist Progress Note ---
Date of Service September 07, 2023 Assessment & Plan (1) Acute respiratory failure with hypoxia: Plan: 2nd to tumor burden from her lung cancer on the right, reaccumulating malignant effusion on the right (and potentially the left), etc. Improved s/p IV dexamethasone and scheduled nebs since admission. Resp BioFire is negative. Can't rule out post-obstructive pneumonia of right lung thus continue levaquin 750mg once daily. Continue NC O2. Continue IV dexamethasone 6mg daily. Hold po prednisone. (2) Primary small cell malignant neoplasm of lung, stage 4: Plan: mets to brain, pleural space, multiple lymph nodes, etc. on chronic prednisone 10mg daily for pain control, brain mets, etc. last chemotherapy was IV topotecan on 08/17/2023 this resulted in pancytopenia & neutropenia appreciate heme/onc, palliative care, and pulmonary consultations Dr Barr from heme/onc advised transition to hospice; patient desiring such after multiple discussions with Dr Gonzalez and her family her is preparing their house in order to receive a hospital bed and other DME s/p palliative pleurX catheter today on right by Dr Bocanegra (3) Pancytopenia due to antineoplastic chemotherapy: Plan: 2nd to IV topotecan on 08/17/2023 all cell lines improved today including total WBC count and platelets (65) Neutropenic precautions (4) Squamous cell carcinoma of vulva: Plan: with metastatic disease based on most recent imaging (5) Therapeutic opioid-induced constipation (OIC): Plan: cont a bowel regimen (6) 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 (7) Cancer related pain: Plan: cont percocet prn cont dilaudid prn cont lidocaine jelly for prn use for vulvar pain dexamethasone will help pain as well (8) Malignant pleural effusion: Plan: right s/p thoracentesis 08/31 with pathology c/w malignant effusion from her lung cancer already it is reaccumulating after much discussion patient today agreed to pleurX catheter placement platelets >50 to allow safe insertion; Eliquis has been on hold for several days as well appreciate Dr Bocanegra's assistance post-procedural cxr w/o pneumothorax will need drainage at least every other day Hospice can perform hopefully (9) Radiation esophagitis: Plan: history of noted cont PPI in light of steroid use, etc (10) History of DVT (deep vein thrombosis): Plan: noted Kinsey is on hold since she will be going home with hospice will defer on restarting anticoagulation Plan social work assisting with dispo planning and setting up of Hospice Admission and Anticipated Discharge Date Admission Date: September 04, 2023 Subjective saw patient in the afternoon this was following pleurX placement was resting comfortably only complaint was pain around the pleurX site vulvar pain controlled right back pain controlled she apparently was dyspneic earlier - received ativan - and symptoms improved not much appetite a nursing friend was present during the visit Review of Systems Review of Systems: CV - mild pain at pleurX site; no central chest pain; no orthopnea pulm - cough and wheezing along with dyspnea GI - no abd pain or N/V Physical Exam Physical Exam: gen - pleasant, NAD, audible wheeze/stridor present like previous chest - distended superficial veins on chest wall; edematous chest wall and br easts unchanged mouth - MMM heart - tachy, s1 s2, no murmur lungs - minimal end-exp wheezes; some inspiratory stridor; no rales; improved airation right base; mild tachypnea chest - right-sided PleurX catheter now in place with dressings covering such abd - soft NT ND BS+ ext - trace edema b/l ankles/shins; pulses 2+ b/l psych - a/o x 3; tired Results & Data Results & Data Vital Signs (Past 12 Hours) Vital Signs Temp Pulse Resp BP BP Pulse Ox Pulse Ox 09/07/23 16:35 09/07/23 16:35 36.6 C 108 H 20 94/58 L 94 09/07/23 16:35 94 09/07/23 13:41 104 H 20 93 09/07/23 07:59 36.5 C 94 H 22 115/72 95 O2 Del Method O2 Del Method O2 Flow Rate O2 Flow Rate 09/07/23 16:35 Nasal Cannula 2 09/07/23 16:35 Nasal Cannula 2 09/07/23 16:35 Nasal Cannula 2 09/07/23 13:41 Nasal Cannula 2 09/07/23 07:59 Nasal Cannula 2 Laboratory Results Laboratory Results - last 24 hr 09/07/23 07:52 WBC 3.34 L RBC 2.79 L Hgb 8.6 L Hct 28.6 L MCV 102.5 H MCH 30.8 MCHC 30.1 L RDW Std Deviation 66.3 H RDW Coeff of Sohail 18.5 H Plt Count 65 L MPV 10.9 Absolute Nucleated RBC 0.03 Nucleated RBC % (auto) 0.9 Diagnostic Findings Chest X-Ray 09/07/23 13:03 XR chest 1V portable HISTORY: 63 years-old Female s/p RIGHT sided pleurx status post placement of a right-sided chest tube COMPARISON: CTA chest and chest radiograph studies 09/04/2023 TECHNIQUE: AP view of the chest FINDINGS: Large mass within the right mid and upper hemithorax redemonstrated. Loculated right pleural effusion with right basilar consolidation and right lung volume loss redemonstrated. Unchanged left subclavian [id number]-Kriy catheter. Status post placement of a right basilar chest tube. No postprocedural pneumothorax identified. IMPRESSION: 1. Status post placement of a right basilar chest tube. No postprocedural pneumothorax identified. 2. Additional findings of the chest are better evaluated on the PA exam from 09/04/2023 ACT 112: Negative or not required by law. The above report was generated using voice recognition software. It may contain grammatical, syntax or spelling errors. Electronically signed by: Stephan Phillips M.D. 09/07/2023 2:15 PM PG Care Time/CCT Total # of Minutes Spent Total Time Spent with Patient: Total time spent is greater than 50% in coordination of care (as documented) at patient's floor/unit and/or counseling patient: Coding Level of Care Code 91493 SUB INP/OBS CARE 1/25MIN Diagnoses Acute respiratory failure with hypoxia J96.01 Primary small cell malignant neoplasm of lung, stage 4 C34.90 Pancytopenia due to antineoplastic chemotherapy D61.810; T45.1X5A Squamous cell carcinoma of vulva C51.9 Therapeutic opioid-induced constipation (OIC) K59.03; T40.2X5A SVC syndrome I87.1 Cancer related pain G89.3 Malignant pleural effusion J91.0 Radiation esophagitis K20.80; T66.XXXA History of DVT (deep vein thrombosis) Z86.718
[2023-09-07] MEDS: HYDROmorphone INJ 0.5 MG/0.5 ML SYR IV PRN (20:55)
[2023-09-07] MEDS: HEPARIN 100 UNIT/ML 5ML FLUSH FLUSH PRN (21:02)
[2023-09-07] MEDS: HEPARIN 100 UNIT/ML 5ML FLUSH ONE (23:07)
[2023-09-08] MEDS: ALBUT/IPRATROP 3MG/0.5MG NEB 3 ML VIAL NEB STA (05:10)
--- NOTE | 2023-09-08 08:50 | Pulmonology Progress Note ---
Date of Service September 08, 2023 Assessment & Plan (1) Malignant pleural effusion: (2) Extensive stage primary small cell carcinoma of lung: (3) Pancytopenia due to antineoplastic chemotherapy: (4) Hypoxia: (5) SVC syndrome: (6) Squamous cell carcinoma of vulva: (7) Brain metastasis: Plan IMPRESSION: Unfortunate 63-year-old female with a history of recurrent small cell lung cancer which is mildly metastatic, squamous cell carcinoma of the vulva, and recurrent malignant effusion who presents in the setting of worsening dyspnea and associated hypoxemia. RECOMMENDATIONS: 1. Malignant pleural effusion -Pleurx catheter was placed yesterday with removal of 100 mL of pleural fluid. Moving forward, the patient can have this drained every other day moving forward. This can be performed by her home hospice service. She will need to have sutures removed in 7 to 10 days. Again, this can be performed by home hospice service or they can contact our office for follow-up for suture removal, however patient may be more interested in limiting out-of-home visits moving forward. 2. Extensive stage primary small cell carcinoma of the lung - Per oncology 3. Hypoxia - In the setting of numbers 1 and 2. Continue with supplemental oxygen as needed. 4. SVC syndrome - As previously diagnosed. Anticoagulation on hold currently. Defer to primary and oncology services for plans for restarting this, particularly patient will profound thrombocytopenia on admission. 5. Patient is DNR/DNI at this time. She plans to be discharged to home to hospice care in the next 24 hours or so. Thank you for allowing us to participate in the care of this pleasant patient. Pulmonary medicine will sign off at this time. Please reach out to us for any further recommendations. Admission and Anticipated Discharge Date Admission Date: September 04, 2023 Subjective Patient seen and evaluated at bedside this morning. She states that she is feeling somewhat better at this time and enjoying her breakfast. She has a little discomfort at the insertion site, but otherwise is feeling somewhat better. Results & Data Results & Data Vital Signs (Past 12 Hours) Vital Signs Temp Pulse Resp BP BP Pulse Ox O2 Del Method 09/08/23 08:35 Nasal Cannula 09/08/23 07:52 88 18 94 Nasal Cannula 09/08/23 07:19 36.8 C 93 H 18 102/67 91 Nasal Cannula 09/08/23 05:10 84 14 91 Nasal Cannula 09/07/23 21:45 91 H 14 94 Nasal Cannula 09/07/23 21:11 36.4 C L 102 H 20 108/74 93 Nasal Cannula 09/07/23 21:00 Nasal Cannula O2 Flow Rate 09/08/23 08:35 2 09/08/23 07:52 2 09/08/23 07:19 2 09/08/23 05:10 2 09/07/23 21:45 2 09/07/23 21:11 2 09/07/23 21:00 2 PG Care Time/CCT Total # of Minutes Spent Total Time Spent with Patient: Total time spent is greater than 50% in coordination of care (as documented) at patient's floor/unit and/or counseling patient: Coding Level of Care Code 57874 SUB INP/OBS CARE Diagnoses Malignant pleural effusion J91.0 Extensive stage primary small cell carcinoma of lung C34.90 Pancytopenia due to antineoplastic chemotherapy D61.810; T45.1X5A Hypoxia R09.02 SVC syndrome I87.1 Squamous cell carcinoma of vulva C51.9 Brain metastasis C79.31
[2023-09-08] MEDS ORDERED: HYDROmorphone BOLUS from BAG IV PRN (13:44)
[2023-09-08] MEDS ORDERED: HYDROmorphone INJ 0.5 MG/0.5 ML SYR IV PRN (13:47)
[2023-09-08] MEDS: HYDROmorphone/NSS 100 MG/100 ML BAG IV SCH (14:55)
--- NOTE | 2023-09-08 16:26 | Palliative Care Progress Note ---
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 with low dose continuous rate and bolus/demand dose to use as she needs She prefers a BARREL HANDLER, orders written (2) Anxiety associated with cancer diagnosis: (3) Cancer related pain: (4) Therapeutic opioid-induced constipation (OIC): (5) POLST (Physician Orders for Life-Sustaining Treatment): Plan: Elected DNR/DNI POLST completed, original at bedside with pt Hospice will want the document (6) Advanced care planning/counseling discussion: Plan: 30min face to face ACP with Pt at bedside I expressed my worries she is worsening and symptoms not well controlled with oral meds in escalated dose. She voiced same concern and admits it is getting to be a struggle to breathe. She is getting scared. She wants to go home but does not want to suffer/feelings of suffocation. Wants to be with family - advised we will move her to [facility] and family can remain at bedside. She is agreeable to trial of BARREL HANDLER Dilaudid I discussed option of GIP eval given escalating sx needs She agreed to GIP eval and agreed if things worsen acutely, remain in house for EOL care. (7) Palliative care by specialist: Plan As above Thank you for allowing us to participate in the ongoing care of this patient. Please page with any additional concerns. Radha Gonzalez DNP Director, Palliative Medicine Admission and Anticipated Discharge Date Admission Date: September 04, 2023 Caitlin Lopez is alone in her room this afternoon and having worsening dyspnea since yesterday. Agreed to try prn IV DIlaudid since last evening and has felt more relief but states it does not last. She is more tired today and pain is about the same. SOB with rest and conversation Appetite declining, preferring sips of cold liquids weaker today mild chest pain, better with dilaudid nebs don't help very much dyspnea with 2-3 word sentences states her sister and niece coming from [facility], will stay overnight Review of Systems Review of Systems: All systems reviewed & are unremarkable except as noted in Subjective Physical Exam Physical Exam: NCAT perrla,eomi's aaox3 inc resp effort higher pitched vocal quality chest wall vessels are prominent chest wall edema/breast edema prominent conversational dyspnea dry cough, intermittent throat clearing tachy s1s2, +JVD abd soft RAHMAN, mild generalized weakness pale skin, no gross cyanosis Results & Data Vital Signs (Past 12 Hours) Vital Signs Temp Pulse Resp BP Pulse Ox O2 Del Method O2 Flow Rate 09/08/23 13:28 87 20 94 Nasal Cannula 2 09/08/23 08:35 Nasal Cannula 2 09/08/23 07:52 88 18 94 Nasal Cannula 2 09/08/23 07:19 36.8 C 93 H 18 102/67 91 Nasal Cannula 2 09/08/23 05:10 84 14 91 Nasal Cannula 2 Laboratory Results Abnormal lab results 09/04/23 Range/Units 21:23 Crossmatch See Detail Intake & Output 09/06/23 09/07/23 09/08/23 09/09/23 06:59 06:59 06:59 06:59 Intake Total 500 / 500 480 / 480 240 / 240 Output Total Balance 499 / 499 480 / 480 240 / 240 Weight 67.9 kg Diagnostic Findings Chest CTA 09/04/23 15:44 CT angio chest PE protocol CLINICAL HISTORY: Dyspnea TECHNIQUE: Multidetector row helical CT of the chest was performed with angiographic protocol. Coronal and sagittal reformations were obtained. Coronal and sagittal MIPS were obtained from the axial data set and were submitted for review. Automated dose lowering techniques and/or adjustment according to patient size were utilized for this exam. CT DOSE: 886.81 mGy.cm Comparison: Comparison is made to CT chest 08/30/2023 FINDINGS: Lungs and pleura: Moderate right and small left pleural effusions. No pneumothorax. Right suprahilar mass is again seen with associated atelectasis. Heart and pericardium: Heart size is normal. No pericardial effusion. Vessels: No evidence of pulmonary embolism. Mediastinum and tasha: Partial visualization of enlarged lymph nodes in the mediastinum. Chest wall and lower neck: Bilateral lymphadenopathy is again seen. Body wall edema is again seen. Abdomen: Unremarkable. Bones: Degenerative changes in the thoracic spine. IMPRESSION: 1. No evidence of pulmonary embolus. 2. Moderate right and small left pleural effusion without evidence of pneumothorax. 3. Redemonstration of large right suprahilar mass with mediastinal and axillary lymphadenopathy. ACT 112: Negative or not required by law. Electronically signed by: Glenroy Monte M.D. 09/04/2023 5:40 PM Chest X-Ray 09/07/23 13:03 XR chest 1V portable HISTORY: 63 years-old Female s/p RIGHT sided pleurx status post placement of a right-sided chest tube COMPARISON: CTA chest and chest radiograph studies 09/04/2023 TECHNIQUE: AP view of the chest FINDINGS: Large mass within the right mid and upper hemithorax redemonstrated. Loculated right pleural effusion with right basilar consolidation and right lung volume loss redemonstrated. Unchanged left subclavian Bucnri-n-Zpsf catheter. Status post placement of a right basilar chest tube. No postprocedural pneumothorax identified. IMPRESSION: 1. Status post placement of a right basilar chest tube. No postprocedural pneumothorax identified. 2. Additional findings of the chest are better evaluated on the PA exam from 09/04/2023 ACT 112: Negative or not required by law. The above report was generated using voice recognition software. It may contain grammatical, syntax or spelling errors. Electronically signed by: Stephan Phillips M.D. 09/07/2023 2:15 PM PG Care Time/CCT Total # of Minutes Spent Total Time Spent with Patient: Total time spent is greater than 50% in coordination of care (as documented) at patient's floor/unit and/or counseling patient:I spent 90 minutes overall addressing this case: 10 min in medical data review/discussion with referring provider(s) and/or preparation for the visit 20 min in direct interaction with the patient/exam 30 min in Advance Care Planning/Goals of Care discussions as detailed above in note (must be >16min) 15 min in subsequent review and synthesis of assessment and plan 15 min communicating with other providers regarding the patient's case: Advanced Care Planning 36696 Advanced Care Planning 30 Min [place] [address] SUB INP/OBS CARE 3/50MIN (25 - SIGNIFICANT, SEPARATELY IDENTIFIABLE ) Patient Type Established Medical Decision Making High Complexity Diagnoses Dyspnea and respiratory abnormalities R06.00; R06.89 Anxiety associated with cancer diagnosis F41.1; C80.1 Cancer related pain G89.3 Therapeutic opioid-induced constipation (OIC) K59.03; T40.2X5A POLST (Physician Orders for Life-Sustaining Treatment) Z78.9 Advanced care planning/counseling discussion Z71.89 Palliative care by specialist Z51.5 Additional Codes Advanced Care Planning - 53043 Advanced Care Planning 30 Min: 02099 Advanced Care Planning 30 Min ([id number])
--- NOTE | 2023-09-08 20:55 | Hospitalist Progress Note ---
Date of Service September 08, 2023 Assessment & Plan (1) Acute respiratory failure with hypoxia: Plan: 2nd to tumor burden from her lung cancer on the right, reaccumulating malignant effusion on the right (and potentially the left), etc. Worse today -- increasing distress, increasing stridor, etc. ENVIRONMENTAL HEALTH MANAGER dilaudid added due to distress. Resp BioFire negative. Post-obstructive pneumonia of right lung - continue levaquin 750mg once daily. Continue NC O2. Continue IV dexamethasone 6mg daily as this might provide palliative relief of symptoms. Hold po prednisone. (2) Primary small cell malignant neoplasm of lung, stage 4: Plan: mets to brain, pleural space, multiple lymph nodes, etc. on chronic prednisone 10mg daily for pain control, brain mets, etc. last chemotherapy was IV topotecan on 08/17/2023 this resulted in pancytopenia & neutropenia s/p palliative pleurX catheter on right by Dr Bocanegra for malignant effusion this admission appreciate heme/onc, palliative care, and pulmonary consultations Dr Barr from heme/onc advised transition to hospice Patient then met with Dr Gonzalez from palliative care Transitioned to DNR/DNI status and plans for home hospice Worsening resp distress today necessitating institution of ENVIRONMENTAL HEALTH MANAGER dilaudid Thus, plan for d/c home on 09/08 with hospice is uncertain or potentially unlikely if she continues to worsen rapidly (3) Pancytopenia due to antineoplastic chemotherapy: Plan: 2nd to IV topotecan on 08/17/2023 cont Neutropenic precautions no further CBCs (4) Squamous cell carcinoma of vulva: Plan: with metastatic disease based on most recent imaging (5) Therapeutic opioid-induced constipation (OIC): Plan: cont a bowel regimen if desired by patient (6) 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 (7) Cancer related pain: Plan: cont dilaudid via ENVIRONMENTAL HEALTH MANAGER cont lidocaine jelly for prn use for vulvar pain dexamethasone will help pain as well (8) Malignant pleural effusion: Plan: right s/p thoracentesis 08/31 with pathology c/w malignant effusion from her lung cancer s/p pleurX catheter placement this admission effusion appears loculated on cxrs thus with drainage may not get much out moving forward (9) Radiation esophagitis: Plan: history of noted cont PPI in light of steroid use, etc (10) History of DVT (deep vein thrombosis): Plan: noted stopped Kinsey Plan social work has been assisting with dispo planning and setting up of Hospice at home plan was for home with hospice on 09/09/23 however, she is now on ENVIRONMENTAL HEALTH MANAGER dilaudid due to worsening respiratory distress also requiring frequent IV ativan for anxiety/distress inpatient hospice candidate?? attempted to call pt's this evening - phone rang & rang, unable to leave message and he did not answer will attempt again tomorrow will stop all unnecessary meds Admission and Anticipated Discharge Date Admission Date: September 04, [address] Gonzalez from palliative care patient was having worsening respiratory distress and air hunger this am along with anxiety after discussion Dr Gonzalez advised going on ENVIRONMENTAL HEALTH MANAGER dilaudid with a basal and ongoing use of ativan IV prn pleurX was drained this am only for 100cc patient continues to eat/drink poorly declined a luna for comfort Review of Systems Review of Systems: ROS not obtained - patient very sleepy Physical Exam Physical Exam: gen - was sleeping upon arrival; did awaken, answered some basic questions, quickly went back to sleep chest - distended superficial veins on chest wall; edematous chest wall and breasts unchanged mouth - MMM heart - tachy, s1 s2, no murmur lungs - moderate end-exp wheezes; inspiratory stridor remains; no rales; tachypneic chest - right-sided PleurX catheter present abd - soft NT ND BS+ ext - no edema b/l ankles/shins; pulses 2+ b/l psych - lethargic Results & Data Results & Data Vital Signs (Past 12 Hours) Vital Signs Pulse Resp Pulse Ox O2 Del Method O2 Flow Rate 09/08/23 13:28 87 20 94 Nasal Cannula 2 PG Care Time/CCT Total # of Minutes Spent Total Time Spent with Patient: Total time spent is greater than 50% in coordination of care (as documented) at patient's floor/unit and/or counseling patient: Coding Level of Care Code 06858 SUB INP/OBS CARE 03/02MIN Diagnoses Acute respiratory failure with hypoxia J96.01 Primary small cell malignant neoplasm of lung, stage 4 C34.90 Pancytopenia due to antineoplastic chemotherapy D61.810; T45.1X5A Squamous cell carcinoma of vulva C51.9 Therapeutic opioid-induced constipation (OIC) K59.03; T40.2X5A SVC syndrome I87.1 Cancer related pain G89.3 Malignant pleural effusion J91.0 Radiation esophagitis K20.80; T66.XXXA History of DVT (deep vein thrombosis) Z86.718
[2023-09-08] MEDS: ALBUT/IPRATROP 3MG/0.5MG NEB 3 ML VIAL NEB PRN (23:22)
[2023-09-09] MEDS: GLYCOPYRROLATE 0.2 MG/ML VIAL IV PRN (14:33)
--- NOTE | 2023-09-09 14:35 | Hospitalist Progress Note ---
Date of Service September 09, 2023 Assessment & Plan (1) Palliative care patient: Plan: patient with stage 4 lung ca as well as vulvar cancer plan yesterday am was to go home with [facility] prior to yesterday she was requiring frequent IV ativan along with prn pain meds late yesterday am/early pm she developed respiratory distress with worsening stridor and air hunger along with terminal anxiety Dr Gonzalez from palliative care who knows the patient well from the palliative care clinic strongly advised dilaudid infusion due to her severe symptoms and frequent use of prn meds dilaudid infusion started yesterday - 09/08/23 - at initial rate of 0.2mg/hr since yesterday the infusion has been increased steadily to 1mg/hr due to respiratory distress will increase to 1.5mg/hr now due to increased work of breathing consider luna at bedside he asked if it would be possible to get her home they live about 30-40 minutes away I strongly recommended against d/c to home as I don't think we could keep her comfortable during the ride home further, I don't believe we would be able to secure a dilaudid infusion for home I encouraged her to contact the pt's sisters/other family members that she will remain at [facility] until her passing offered to call a local real estate management specialist but he declined support given to pt's Charles (2) Comfort measures only status: Plan: see above in #1 (3) Acute respiratory failure with hypoxia: Plan: 2nd to tumor burden from her lung cancer on the right, reaccumulating malignant effusion on the right (and potentially the left), etc. worse in the last 24 hours dilaudid infusion added due to distress; drip started 09/08/23 Resp BioFire negative. Post-obstructive pneumonia of right lung - was on levaquin; will stop Continue NC O2. stop steroids (4) Primary small cell malignant neoplasm of lung, stage 4: Plan: mets to brain, pleural space, multiple lymph nodes, etc. on chronic prednisone 10mg daily for pain control, brain mets, etc. last chemotherapy was IV topotecan on 08/17/2023 this resulted in pancytopenia & neutropenia s/p palliative pleurX catheter on right by Dr Bocanegra for malignant effusion this admission appreciate heme/onc, palliative care, and pulmonary consultations Dr Barr from heme/onc advised transition to hospice Patient then met with Dr Gonzalez from palliative care Transitioned to DNR/DNI status and plans for home hospice see #1 above (5) Pancytopenia due to antineoplastic chemotherapy: Plan: 2nd to IV topotecan on 08/17/2023 (6) Squamous cell carcinoma of vulva: Plan: with metastatic disease based on most recent imaging (7) Therapeutic opioid-induced constipation (OIC): (8) 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 severe (9) Cancer related pain: Plan: cont dilaudid via 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 cont lidocaine jelly for prn use for vulvar pain (10) Malignant pleural effusion: Plan: right s/p thoracentesis 08/31 with pathology c/w malignant effusion from her lung cancer s/p pleurX catheter placement this admission (11) Radiation esophagitis: Plan: history of (12) History of DVT (deep vein thrombosis): Plan: noted stopped Eliquis Plan see #1 above full comfort measures at this time Admission and Anticipated Discharge Date Admission Date: September 04, 2023 Subjective pt obtunded during the visit was visibly cyanotic visible apneas this am was awake and able to answer questions per the and staff Review of Systems Review of Systems: Unobtainable due to reduced consciousness Physical Exam Physical Exam: gen - obtunded, apneic, cyanotic chest - distended superficial veins on chest wall; edematous chest wall and breasts unchanged mouth - oral cyanosis heart - tachy, s1 s2, no murmur lungs - severely course BS b/l R>L, apneic, wheezes b/l with inspiratory stridor as well; tachypneic at times ext - cyanotic fingertips but feet remain warm with palpable pulses psych - obtunded Results & Data Results & Data Vital Signs (Past 12 Hours) Vital Signs O2 Del Method O2 Flow Rate 09/09/23 07:35 Nasal Cannula 2 PG Care Time/CCT Total # of Minutes Spent Total Time Spent with Patient: Total time spent is greater than 50% in coordination of care (as documented) at patient's floor/unit and/or counseling patient: Coding Level of Care Code 81195 SUB INP/OBS CARE /25MIN Diagnoses Palliative care patient Z51.5 Comfort measures only status Z51.5 Acute respiratory failure with hypoxia J96.01 Primary small cell malignant neoplasm of lung, stage 4 C34.90 Pancytopenia due to antineoplastic chemotherapy D61.810; T45.1X5A Squamous cell carcinoma of vulva C51.9 Therapeutic opioid-induced constipation (OIC) K59.03; T40.2X5A SVC syndrome I87.1 Cancer related pain G89.3 Malignant pleural effusion J91.0 Radiation esophagitis K20.80; T66.XXXA History of DVT (deep vein thrombosis) Z86.718
[2023-09-09] MEDS: SCOPOLAMINE 1 MG/72 HR TDSY PATCH TD SCH (15:46)
[2023-09-09] MEDS: ATROPINE SULFATE 1% OP SOLN 5 ML BTL SL PRN (16:12)
[2023-09-09] MEDS: CHECK SCOPOLAMINE PATCH PLACEMENT SCH (16:12)
[2023-09-10] MEDS: LORazepam 0.5 MG in SYRINGE 0.25 ML IV PRN (01:34)
--- NOTE | 2023-09-10 03:12 | Death Pronouncement Note ---
Date of Service September 10, 2023 Pronouncement Note Admission Date Admission Date: September 04, 2023 Date and Time of Date of : 09/10/23 Time of : 02:51 Contributing Factors (1) Palliative care patient: (2) Comfort measures only status: (3) Acute respiratory failure with hypoxia: (4) Primary small cell malignant neoplasm of lung, stage 4: (5) Pancytopenia due to antineoplastic chemotherapy: (6) Squamous cell carcinoma of vulva: (7) Therapeutic opioid-induced constipation (OIC): (8) SVC syndrome: (9) Cancer related pain: (10) Malignant pleural effusion: (11) Radiation esophagitis: (12) History of DVT (deep vein thrombosis): Summary Additional details: At approximately 2:30 AM, was notified by nurse that patient had . Proceeded to bedside to examine the patient. Family present at bedside. On exam, was unable to detect a radial pulse bilaterally. No heart or breath sounds were heard on auscultation. Pupillary light reflex was absent bilaterally. Time of at conclusion of exam was 2:51 AM. Additional Data Confirmation of : no pulse, no respirations, no heart sounds and pupils fixed and dilated Family: at bedside Attending physician: Nathan Solorzano MD Resident Activity Tracking Resident Involvement: Resident Care Provided and Investor Coverage Note Care Provided: Adult Hospital Medicine
--- NOTE | 2023-09-10 19:56 | Discharge Summary ---
Discharge Summary Date of Service Admission Date: September 04, 2023 Date and Time of Date of : 09/10/23 Time of : 02:51am Principal Dx & Hospital Course #1 = Principal Diagnosis (1) Palliative care patient: patient with stage 4 lung ca as well as vulvar cancer plan yesterday am was to go home with [facility] prior to yesterday she was requiring frequent IV ativan along with prn pain meds late yesterday am/early pm she developed respiratory distress with worsening stridor and air hunger along with terminal anxiety Dr Gonzalez from palliative care who knows the patient well from the palliative care clinic strongly advised dilaudid infusion due to her severe symptoms and frequent use of prn meds dilaudid infusion started yesterday - 09/08/23 - at initial rate of 0.2mg/hr since yesterday the infusion has been increased steadily to 1mg/hr due to respiratory distress will increase to 1.5mg/hr now due to increased work of breathing consider luna at bedside he asked if it would be possible to get her home they live about 30-40 minutes away I strongly recommended against d/c to home as I don't think we could keep her comfortable during the ride home further, I don't believe we would be able to secure a dilaudid infusion for home I encouraged her to contact the pt's sisters/other family members that she will remain at [facility] until her passing offered to call a local high lift operator but he declined support given to pt's Charles (2) Comfort measures only status: see above in #1 (3) Acute respiratory failure with hypoxia: 2nd to tumor burden from her lung cancer on the right, reaccumulating malignant effusion on the right (and potentially the left), etc. worse in the last 24 hours dilaudid infusion added due to distress; drip started 09/08/23 Resp BioFire negative. Post-obstructive pneumonia of right lung - was on levaquin; will stop Continue NC O2. stop steroids (4) Primary small cell malignant neoplasm of lung, stage 4: mets to brain, pleural space, multiple lymph nodes, etc. on chronic prednisone 10mg daily for pain control, brain mets, etc. last chemotherapy was IV topotecan on 08/17/2023 this resulted in pancytopenia & neutropenia s/p palliative pleurX catheter on right by Dr Bocanegra for malignant effusion this admission appreciate heme/onc, palliative care, and pulmonary consultations Dr Barr from heme/onc advised transition to hospice Patient then met with Dr Gonzalez from palliative care Transitioned to DNR/DNI status and plans for home hospice see #1 above (5) Pancytopenia due to antineoplastic chemotherapy: 2nd to IV topotecan on 08/17/2023 (6) Squamous cell carcinoma of vulva: with metastatic disease based on most recent imaging (7) Therapeutic opioid-induced constipation (OIC): (8) SVC syndrome: 2nd to right-sided lung ca severe (9) Cancer related pain: 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 via 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 cont lidocaine jelly for prn use for vulvar pain (10) Malignant pleural effusion: right s/p thoracentesis 08/31 with pathology c/w malignant effusion from her lung cancer s/p pleurX catheter placement this admission (11) Radiation esophagitis: history of (12) History of DVT (deep vein thrombosis): noted stopped Eliquis Plan see #1 above full comfort measures at this time Admission HPI Per Admitting Provider Patient is a 63 yo F w/ a PMHx of small cell lung cancer (mets to the brain, s/p chemotherapy and radiation therapy, w/ Port-a-Cath), Hx of vulvar cancer, Hx of DVT, radiation esophagitis, tobacco use, Hx of SVC syndrome, and left renal mass presents today for continued SOB at rest/exertion, tachypnea, tachycardia, and an increasingly productive cough. Patient denies fevers, chills, any chest pain w/ inspiration (pleuritic chest pain). Patient last in [facility] ED on 09/01/2023, at which time platelets were also low at 26, patient received 1 unit of platelets, and also had a thoracentesis performed. Patient's SCLC diagnosed in Jan 2022, with her metastases noted in . Updated Medication List Medication Instructions Recorded Confirmed Type docusate sodium 100 mg capsule 100 mg PO BID PRN Constipation 02/22/22 09/04/23 History oxycodone-acetaminophen 5 mg-325 1 tab PO .Q4hrs PRN pain #10 tabs 11/21/22 09/04/23 Rx mg tablet (Percocet) prednisone 10 mg tablet 10 mg PO DAILY 05/16/23 09/04/23 History silver sulfadiazine 1 % topical 1 applic topical BID PRN radiation 06/05/23 09/04/23 Rx cream (Silvadene) dematitis #85 grams albuterol sulfate 90 mcg/actuation 1 - 2 puff inhalation Q6H PRN 09/04/23 09/04/23 History aerosol inhaler Shortness Of Breath Or Wheezing apixaban 5 mg tablet (Eliquis) 5 mg PO BID 09/04/23 09/04/23 History levofloxacin 500 mg tablet 500 mg PO DAILY 09/04/23 09/04/23 History Hospital Stay Data Consultations 09/04/23 18:43 ED Decision to Admit Stat 09/04/23 22:14 Consult Pulmonology Routine 09/05/23 06:37 Consult Oncology Routine Consult Palliative Care Routine Diagnostic Imagining Performed 09/04/23 15:44 CT angio chest PE protocol Stat Coding Diagnoses Palliative care patient Z51.5 Comfort measures only status Z51.5 Acute respiratory failure with hypoxia J96.01 Primary small cell malignant neoplasm of lung, stage 4 C34.90 Pancytopenia due to antineoplastic chemotherapy D61.810; T45.1X5A Squamous cell carcinoma of vulva C51.9 Therapeutic opioid-induced constipation (OIC) K59.03; T40.2X5A SVC syndrome I87.1 Cancer related pain G89.3 Malignant pleural effusion J91.0 Radiation esophagitis K20.80; T66.XXXA History of DVT (deep vein thrombosis) Z86.718
== END 2023-09-10 03:47 | disposition expired | DRG 180 ==
LOC: ED 15:27 → EDINP 19:52 → SUATTDRO 19:52 → 2E 22:14 → 3W 09-06 16:36